=== PATIENT | male | born 1940 | race Caucasian/White ===

== ENCOUNTER 2021-07-10 12:10 | Inpatient (IN) ==
--- NOTE | 2021-07-10 12:39 | Emergency Department Note ---
Impression & Plan Bimalleolar fracture of left ankle ED Provider Note CHIEF COMPLAINT: Left ankle injury HISTORY OF PRESENT ILLNESS: This 80-year-old male patient presents to the emergency department by private vehicle after sustaining an injury to the left ankle and foot with a twisting, inversion motion around 11:20 AM today. The patient states that he slipped on some icy steps and twisted the ankle. The patient complains of pain along the inside and outside of the ankle. The patient denies any pain of the foot. The patient rates the pain as aching and 1/10 at rest, but is more painful when he tries to bear weight. The patient is not able to bear weight on the foot. Constant pain, worse with movement, weight bearing, and the dependent position. No knee pain, the patient is able to move their toes. No numbness or weakness of the foot, no laceration. The patient has not had a previous fracture to this ankle. The patient has taken nothing for the pain. The patient denies any other injury. He denies hitting his head or loss of consciousness. He denies taking any blood thinners but does take an aspirin daily. The patient last had 1/2 glass of water to take 2 pills around 11 AM today. He has not had any solid food since last evening. REVIEW OF SYSTEMS: A complete 10 point review of systems was reviewed with the patient with pertinent positives and negatives as per history of present illness. All else were negative. ALLERGIES: No known allergies PMH: Hyperlipidemia, enlarged prostate, history of TIA SOCIAL HISTORY: Lives at home with family, he denies tobacco use PHYSICAL EXAM: Vital Signs: Reviewed Nurse's notes, vital signs stable. CONSTITUTIONAL: Pleasant and cooperative. No acute distress. Well appearing and well nourished. HEENT: Normocephalic. There is a small abrasion in the occipital scalp with some dried blood. No active bleeding. No large hematoma or skull depression in the area is generally nontender to palpation. NECK: Supple, full active range of motion without discomfort. No midline tenderness to palpation of the cervical spine. RESPIRATORY: Clear to auscultation bilaterally with no wheezing, crackles, rhonchi or stridor. Equal expansion bilaterally. CARDIOVASCULAR: Regular rate and rhythm with no murmurs, rubs or gallops. Normal peripheral perfusion, 2+ pulses in all 4 extremities. GASTROINTESTINAL: Soft, nontender, nondistended. No ecchymosis or abrasions of the abdominal wall. MUSCULOSKELETAL: There is obvious deformity of the left ankle with what appears to be bony deviation medially and tenting of the skin, but no open wounds. The ankle is swollen and mildly tender over the medial and lateral malleolus. The patient is unable to to move the ankle normally. He is able to move his toes normally. There is no fifth metatarsal tenderness. There is no tenderness over the rest of the foot. There is no calf or tibia/fibular tenderness. The foot and toes are slightly cool to the touch, capillary refill is 3 seconds. Dorsalis pedis pulse 2+. Sensation to pain and light touch is intact. INTEGUMENTARY: No rash or other significant dermatologic conditions noted. NEUROLOGIC: Alert and oriented X 4 with normal affect. Normal strength and sensation in all 4 extremities. Normal speech. ED COURSE AND MEDICAL DECISION MAKING: CC: Patient presenting with complaint of left ankle injury DIFFERENTIAL DIAGNOSIS: Includes, but not limited to ankle sprain/strain, contusion, hematoma, fracture, dislocation, tendon rupture, ligamentous injury, among others. MEDICATION RECONCILIATION: I attest that I have personally reviewed the patient's current medication list. INITIAL VITAL SIGNS REVIEW: I reviewed the patient's initial vital signs and interpret them as follows: T: Afebrile; BP: Mildly hypertensive; HR: Within normal limits; RR: Within normal limits; Pulse Ox: Within normal limits on r oom air. SPLINT CARE: An Ortho-Glass posterior and stirrup splint was applied by the cable installation technician and Dr. Ortega. The positioning was satisfactory and the patient remained neurovascularly intact above and below the splint. MDM SUMMARY: Patient was evaluated at bedside, history and physical exam performed. Patient is alert and oriented, in no acute distress, resting in the wheelchair in the room. There is obvious deformity of the left ankle as noted above with tenting of the skin medially, but no open wounds to suggest an open injury. X-rays were performed and reviewed by myself, noting bimalleolar fracture with medial displacement. No other fractures noted. Patient discussed with Dr. Ortega, who also evaluated the patient and agrees with my assessment, plan, and disposition. A splint was applied and positioning was done by Dr. Ortega. The patient remained neurovascularly intact after splinting. Repeat x-ray showed improved alignment if the fracture. Patient denied hitting his head on my initial evaluation, but does note that he fell all the way to the ground and there is a scalp abrasion noted on my exam. CT imaging of the head and cervical spine was also performed given the patient's fall with hitting his head and he takes a full-strength daily aspirin. CT imaging reviewed and was negative for any acute findings. I spoke on the phone with Dr. Villeda, orthopedic surgery, regarding the patient's fracture. Given the patient's mobility issues and several steps to get in and out of his house as well as getting around inside the house, he felt that it was reasonable to admit the patient to the medicine service and plan for surgery early this week. I discussed the option of admission with the patient and his , they were agreeable to this plan and this was their preference rather than going home. I spoke on the phone with Dr. Duggan, [facility] hospitalist, who agreed to evaluate the patient for the admission. A Covid test was also ordered. The patient was stable at the time of admission. The chart was completed utilizing [employer] Speech voice recognition software. Grammatical errors, random word insertions, pronoun errors, and incomplete sentences are an occasional consequence of this system due to software limitations, ambient noise, and hardware issues. Any formal questions or concerns about the content, text, or information contained within the body of th is dictation should be directly addressed to the nurse practitioner for clarification. Past Med/Surg History Medical History High cholesterol Social History Smoking Status: Never smoker Preferred Language: Albanian Feels Safe at Home: Yes Allergies Allergies Allergy/AdvReac Type Severity Reaction Status Date / Time No Known Allergies Allergy Unverified 03/28/21 12:15 Home Meds Home Medications Medication Instructions Recorded Confirmed alfuzosin 10 mg tablet,extended 10 mg PO DAILY 03/28/21 03/28/21 release 24 hr aspirin 81 mg tablet,delayed 81 mg PO DAILY 03/28/21 03/28/21 release (Aspirin Low Dose) atorvastatin 20 mg tablet 20 mg PO DAILY 03/28/21 03/28/21 cholecalciferol (vitamin D3) 25 25 mcg PO DAILY 03/28/21 03/28/21 mcg (1,000 unit) tablet (Vitamin D3) finasteride 5 mg tablet 5 mg PO DAILY 03/28/21 03/28/21 Results & Data (ED) Vital Signs Vital Signs - 24 hr 07/10/21 12:12 07/10/21 14:11 07/10/21 14:17 Temperature 36.5 C Temperature Source Temporal Artery Scan Pulse Rate 63 63 Pulse Rate [Right Finger] 61 Pulse Rate from SpO2 Sensor 63 Respiratory Rate 18 20 20 Respiratory Effort / Characteristics Non-Labored Spontaneous Blood Pressure 143/82 H Blood Pressure [Left Arm] 143/79 H Blood Pressure Mean 102 Blood Pressure Mean [Left Arm] 100 Blood Pressure Position [Left Arm] Sitting Pulse Oximetry 100 97 96 Oxygen Delivery Method Room Air Room Air Room Air Sepsis Recent Fever Within 48 Hours No Sepsis New/Unexplained Change in Mental Status No Sepsis Action Taken by Nursing No Action Required 07/10/21 14:20 07/10/21 14:30 07/10/21 14:40 Temperature Temperature Source Pulse Rate 68 62 63 Pulse Rate [Right Finger] Pulse Rate from SpO2 Sensor 65 60 63 Respiratory Rate 19 20 20 Respiratory Effort / Characteristics Blood Pressure Blood Pressure [Left Arm] Blood Pressure Mean Blood Pressure Mean [Left Arm] Blood Pressure Position [Left Arm] Pulse Oximetry 95 95 97 Oxygen Delivery Method Room Air Room Air Room Air Sepsis Recent Fever Within 48 Hours Sepsis New/Unexplained Change in Mental Status Sepsis Action Taken by Nursing Laboratory Data Lab Results 07/10/21 Range/Units 14:17 SARS-CoV-2, RNA, NAAT NEGATIVE (NEGATIVE) Imaging Data Radiologist's Impression: Ankle X-Ray 07/10/21 12:29 XR ankle LT min 3V routine CLINICAL HISTORY: ankle injury. Pain. COMPARISON STUDY: No previous studies for comparison. TECHNIQUE: 3 left ankle views FINDINGS: Bones: There is evidence for a bimalleolar fracture present. There is oblique fracture present involving the distal fibular metadiaphysis. A transverse fracture is present through the base of the medial malleolus of the tibia. The remaining bones are intact. There is no lytic or blastic lesion. Joints: There is widening of the ankle mortise medially with evidence for displacement of the tibia and fibular shaft medially. Soft tissues: Soft tissue swelling surrounds the ankle. There is no radiopaque foreign body. IMPRESSION: Displaced bimalleolar fractures of the tibia and fibula with widening of the ankle mortise and surrounding soft tissue swelling. ACT 112: Negative or not required by law. Electronically signed by: Mani Herrera M.D. 07/10/2021 1:22 PM Foot X-Ray 07/10/21 12:29 XR foot LT min 3V routine CLINICAL HISTORY: Foot and ankle injury. Pain COMPARISON STUDY: No previous studies for comparison. TECHNIQUE: 3 left foot views FINDINGS: Bones: Displaced bimalleolar fractures of the tibia and fibula are again seen. There is no definite evidence for a fracture of the foot. There is no lytic or blastic lesion. Joints: The joint spaces are maintained. The bones are in anatomic alignment. Soft tissues: There is no focal soft tissue abnormality. There is no radiopaque foreign body. IMPRESSION: Bimalleolar fractures of the distal tibia and fibula are again seen. No definite fracture of the bones of the foot. ACT 112: Negative or not required by law. Electronically signed by: Mani Herrera M.D. 07/10/2021 1:24 PM Tibia/Fibula X-Ray 07/10/21 12:29 XR tibia fibula LT 2V CLINICAL HISTORY: ankle injury. Pain COMPARISON STUDY: Ankle radiographs from the same date TECHNIQUE: AP and lateral views of the upper tibia fibula views FINDINGS: Bones: The proximal tibia and fibula are intact. The displaced, bimalleolar fractures were not included with these films. However, please see ankle report and films for further evaluation. There is no lytic or blastic lesion. Joints: The knee joint space is maintained. The ankle joint is not included. The imaged bones are in anatomic alignment. Soft tissues: There is no focal soft tissue abnormality. There is no radiopaque foreign body. IMPRESSION: No evidence for fracture of the proximal tibia and fibula. The patient has displaced bimalleolar fractures on ankle radiographs. Please see a nkle films and report for further evaluation. ACT 112: Negative or not required by law. Electronically signed by: Mani Herrera M.D. 07/10/2021 1:[address] 07/10/21 12:59 CT cervical spine wo con CLINICAL HISTORY: fall, hit head, on asa . Neck pain COMPARISON STUDY: No previous studies for comparison. CT DOSE: 984.32 mGy.cm TECHNIQUE: Standard CT of the Cervical Spine was performed without IV contrast. A dose lowering technique was utilized adhering to the principles of ALARA. FINDINGS: Bones: The bones are osteopenic. There is no evidence for an acute fracture or malalignment. The heights of the vertebral bodies are maintained. The vertebral bodies are in anatomic alignment. The odontoid is intact. Degenerative changes are seen at the atlantoaxial articulation. Disc spaces:Moderate to marked disc space narrowing is present at C5-6 and C6-7 with endplate sclerosis, osteophyte formation and vacuum disc phenomena present. Subchondral cyst formation is also seen involving vertebral body endplates. Apophyseal joints:Extensive degenerative apophyseal joint disease is seen bilaterally. Soft tissues:The prevertebral soft tissues are within normal limits. IMPRESSION: No acute abnormality. Osteopenia with degenerative disc and degenerative joint disease. ACT 112: Negative or not required by law. Electronically signed by: Mani Herrera M.D. 07/10/2021 1:[address] 07/10/21 12:59 CT head/brain wo con CLINICAL HISTORY: fall, hit head, on asa COMPARISON STUDY: 03/28/2021 CT DOSE: TECHNIQUE: Standard CT of the Brain was performed without IV contrast. A dose lowering technique was utilized adhering to the principles of ALARA. FINDINGS: Extraaxial space: The ventricles are mildly dilated bilaterally. There are no extra-axial fluid collections. Ventricles and cisterns: The ventricles are normal in size and configuration. There is no evidence for midline shift or mass effect. Parenchyma: There is no subarachnoid or intraparenchymal hemorrhage. There is no evidence for an acute infarct or cerebral edema. There is mild cerebral cortical atrophy and decreased attenuation in the periventricular white matter representing remote small vessel disease. There are no gross mass lesions. Osseous structures: There is no evidence for an acute fracture. The visualized paranasal sinuses are clear. The mastoid air cells are clear bilaterally. Soft tissues: There is no evidence for focal soft tissue swelling. IMPRESSION: No acute intracerebral pathology. Cerebral cortical atrophy and r emote small vessel disease are again seen. ACT 112: Negative or not required by law. Electronically signed by: Mani Herrera M.D. 07/10/2021 1:43 PM Ankle X-Ray 07/10/21 13:14 XR ankle LT min 3V routine CLINICAL HISTORY: post-splinting/reduction. COMPARISON STUDY: 07/10/2021 TECHNIQUE: 3 left ankle views FINDINGS: Compared to the previous examination, there has been partial reduction of previously identified bimalleolar fractures of the distal tibia and fibula. As been reduction of previous be identified widening of the ankle mortise. The ankle is in a fiberglass splint. IMPRESSION: Status post partial interval reduction of previously identified displaced bimalleolar fractures. ACT 112: Negative or not required by law. Electronically signed by: Mani Herrera M.D. 07/10/2021 1:40 PM Discharge Plan Visit Data Chief Complaint: Fall Stated Complaint: FELL ON ICE, TWISTED LEFT ANKLE ED Provider: Gurvinder Ortega ED Midlevel Provider: Merle Crouch Discharge Problem: Bimalleolar fracture of left ankle Patient Disposition: Admitted As Inpatient Condition: Good Forms Stand Alone Forms: [employer] [facility] [employer] Prescriptions Prescriptions: No Action atorvastatin 20 mg tablet 20 mg PO DAILY RF: 0 aspirin [Aspirin Low Dose] 81 mg Tablet,Delayed Release (Dr/Ec) 81 mg PO DAILY RF: 0 finasteride 5 mg tablet 5 mg PO DAILY RF: 0 alfuzosin 10 mg tablet extended release 24 hr 10 mg PO DAILY RF: 0 cholecalciferol (vitamin D3) [Vitamin D3] 25 mcg (1,000 unit) Tablet 25 mcg PO DAILY RF: 0 Referrals Referrals: Yolanda Grace MD [Primary Care Provider] - Discharge Problem: Bimalleolar fracture of left ankle Qualifiers: Encounter type: initial encounter Fracture type: closed Qualified Code(s): S82.842A - Displaced bimalleolar fracture of left lower leg, initial encounter for closed fracture
--- NOTE | 2021-07-10 13:16 | Emergency Department Note ---
ED Visit Note This Patient was discussed with the nurse practitioner, SUPRIYA Monson. The pertinent historical and physical exam findings were confirmed. I agree with the studies ordered and with the interpretations of these studies. I agree with the disposition and care plan. .
--- NOTE | 2021-07-10 13:24 | XRay Report ---
XR ankle LT min 3V routine CLINICAL HISTORY: ankle injury. Pain. COMPARISON STUDY: No previous studies for comparison. TECHNIQUE: 3 left ankle views FINDINGS: Bones: There is evidence for a bimalleolar fracture present. There is oblique fracture present involv ing the distal fibular metadiaphysis. A transverse fracture is present through the base of the medial malleolus of the tibia. The remaining bones are intact. There is no lytic or blastic lesion. Joints: There is widening of the ankle mortise medially with evidence for displacement of the tibia a nd fibular shaft medially. Soft tissues: Soft tissue swelling surrounds the ankle. There is no radiopaque foreign body. IMPRESSION: Displaced bimalleolar fractures of the tibia and fibula with widening of the ankle mortis e and surrounding soft tissue swelling. ACT 112: Negative or not required by law. Electronically signed by: Mani Herrera M.D. 07/10/2021 1:22 PM
--- NOTE | 2021-07-10 13:25 | XRay Report ---
XR foot LT min 3V routine CLINICAL HISTORY: Foot and ankle injury. Pain COMPARISON STUDY: No previous studies for comparison. TECHNIQUE: 3 left foot views FINDINGS: Bones: Displaced bimalleolar fractures of the tibia and fibula are again seen. There is no definite e vidence for a fracture of the foot. There is no lytic or blastic lesion. Joints: The joint spaces are maintained. The bones are in anatomic alignment. Soft tissues: There is no focal soft tissue abnormality. There is no radiopaque foreign body. IMPRESSION: Bimalleolar fractures of the distal tibia and fibula are again seen. No definite fracture of the bones of the foot. ACT 112: Negative or not required by law. Electronically signed by: Mani Herrera M.D. 07/10/2021 1:24 PM
--- NOTE | 2021-07-10 13:33 | XRay Report ---
XR tibia fibula LT 2V CLINICAL HISTORY: ankle injury. Pain COMPARISON STUDY: Ankle radiographs from the same date TECHNIQUE: AP and lateral views of the upper tibia fibula views FINDINGS: Bones: The proximal tibia and fibula are intact. The displaced, bimalleolar fractures were not includ ed with these films. However, please see ankle report and films for further evaluation. There is no l ytic or blastic lesion. Joints: The knee joint space is maintained. The ankle joint is not included. The imaged bones are in anatomic alignment. Soft tissues: There is no focal soft tissue abnormality. There is no radiopaque foreign body. IMPRESSION: No evidence for fracture of the proximal tibia and fibula. The patient has displaced bima lleolar fractures on ankle radiographs. Please see ankle films and report for further evaluation. ACT 112: Negative or not required by law. Electronically signed by: Mani Herrera M.D. 07/10/2021 1:32 PM
--- NOTE | 2021-07-10 13:41 | XRay Report ---
XR ankle LT min 3V routine CLINICAL HISTORY: post-splinting/reduction. COMPARISON STUDY: 07/10/2021 TECHNIQUE: 3 left ankle views FINDINGS: Compared to the previous examination, there has been partial reduction of previously identi fied bimalleolar fractures of the distal tibia and fibula. As been reduction of previous be identifie d widening of the ankle mortise. The ankle is in a fiberglass splint. IMPRESSION: Status post partial interval reduction of previously identified displaced bimalleolar fra ctures. ACT 112: Negative or not required by law. Electronically signed by: Mani Herrera M.D. 07/10/2021 1:40 PM
--- NOTE | 2021-07-10 13:45 | CT Scan Report ---
CT head/brain wo con CLINICAL HISTORY: fall, hit head, on asa COMPARISON STUDY: 03/28/2021 CT DOSE: TECHNIQUE: Standard CT of the Brain was performed without IV contrast. A dose lowering technique was utilized adhering to the principles of ALARA. FINDINGS: Extraaxial space: The ventricles are mildly dilated bilaterally. There are no extra-axial fluid colle ctions. Ventricles and cisterns: The ventricles are normal in size and configuration. There is no evidence f or midline shift or mass effect. Parenchyma: There is no subarachnoid or intraparenchymal hemorrhage. There is no evidence for an acu te infarct or cerebral edema. There is mild cerebral cortical atrophy and decreased attenuation in th e periventricular white matter representing remote small vessel disease. There are no gross mass lesi ons. Osseous structures: There is no evidence for an acute fracture. The visualized paranasal sinuses are clear. The mastoid air cells are clear bilaterally. Soft tissues: There is no evidence for focal soft tissue swelling. IMPRESSION: No acute intracerebral pathology. Cerebral cortical atrophy and remote small vessel disea se are again seen. ACT 112: Negative or not required by law. Electronically signed by: Mani Herrera M.D. 07/10/2021 1:43 PM
--- NOTE | 2021-07-10 13:51 | CT Scan Report ---
CT cervical spine wo con CLINICAL HISTORY: fall, hit head, on asa . Neck pain COMPARISON STUDY: No previous studies for comparison. CT DOSE: 984.32 mGy.cm TECHNIQUE: Standard CT of the Cervical Spine was performed without IV contrast. A dose lowering te chnique was utilized adhering to the principles of ALARA. FINDINGS: Bones: The bones are osteopenic. There is no evidence for an acute fracture or malalignment. The heig hts of the vertebral bodies are maintained. The vertebral bodies are in anatomic alignment. The odont oid is intact. Degenerative changes are seen at the atlantoaxial articulation. Disc spaces:Moderate to marked disc space narrowing is present at C5-6 and C6-7 with endplate scleros is, osteophyte formation and vacuum disc phenomena present. Subchondral cyst formation is also seen i nvolving vertebral body endplates. Apophyseal joints:Extensive degenerative apophyseal joint disease is seen bilaterally. Soft tissues:The prevertebral soft tissues are within normal limits. IMPRESSION: No acute abnormality. Osteopenia with degenerative disc and degenerative joint disease. ACT 112: Negative or not required by law. Electronically signed by: Mani Herrera M.D. 07/10/2021 1:49 PM
--- NOTE | 2021-07-10 15:16 | History & Physical Report ---
Date of Service July 10, 2021 Assessment & Plan (1) Bimalleolar fracture of left ankle: Admission and Anticipated Discharge Date Admission Date: #. Fall #. Left ankle fracture Patient slipped on ice late morning on the day of arrival. Not sure if he hit his head, denies any pain at bedside exam. Imagings: Left ankle x-ray positive for displaced bimalleolar fracture of the tibia and fibula. Left foot x-ray and left tibia/fibula x-ray also reviewed. C-spine CT and head CT are negative for any acute abnormality Emergency already made orthopedics aware, likely repair tomorrow. Pain control, n.p.o. midnight for possible orthopedic interventions tomorrow. Patient on 325 mg aspirin daily after stroke couple of months ago, will continue with 81 mg for now, resume home dose when cleared by orthopedics. #. Other chronic medical conditions: HLD, BPH Resume/continue with home meds as and when appropriate. DVT prophylaxis: SCDs in right leg until orthopedic intervention, await Ortho recommendation for further anticoagulation need. Full code, does not want to be in vegetative state. BELKYS is his Vale Randhawa who was present at bedside. History of Present Illness Chief Complaint: Fall, Left ankle pain Primary Care Provider: Yolanda Grace MD 80-year-old gentleman with PMH of TIA on full dose aspirin [325 mg daily], HLD, stage III CKD, BPH, actinic keratosis, SCCIS of left ear helix skin presented to our ED 2/ after slipping on ice today morning. Per patient he slipped on ice outside of his house late morning on the day of arrival, denies any sweating/palpitations/dizziness preceding fall and no loss of consciousness or headache after fall. He twisted his left ankle and fell, not sure if he hit his head but there is a bruise on his right hand. Denies any pain anywhere in the body including left ankle which is already in the cast at the time of bedside examination. Patient denies any fever/chills/headache/dizziness/chest pain/palpitation/sore throat/cough/belly pain/acute changes in bowel or bladder habits/other review of symptoms. Patient reports pain under control. Patient is not a smoker, does not drink alcohol, does not use recreational drugs. No personal history of blood clot or cancer. No family history of blood clot or cancer. History of colon cancer in father in his 80s 70s. No family history of heart attack. Patient was recently diagnosed with TIA couple of months ago and was started on full dose aspirin. 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 No history of chemical exposure. Full code, but wants withdrawal of care if he is deemed to be vegetative. Allergies Allergy/AdvReac Type Severity Reaction Status Date / Time No Known Allergies Allergy Unverified 03/28/21 12:15 Home Medications Medication Instructions Recorded Confirmed Type alfuzosin 10 mg tablet,extended 10 mg PO DAILY 03/28/21 03/28/21 History release 24 hr aspirin 81 mg tablet,delayed 81 mg PO DAILY 03/28/21 03/28/21 History release (Aspirin Low Dose) atorvastatin 20 mg tablet 20 mg PO DAILY 03/28/21 03/28/21 History cholecalciferol (vitamin D3) 25 25 mcg PO DAILY 03/28/21 03/28/21 History mcg (1,000 unit) tablet (Vitamin D3) finasteride 5 mg tablet 5 mg PO DAILY 03/28/21 03/28/21 History Past Med/Surg History Medical History High cholesterol Social History Smoking Status: Never smoker Hx Alcohol Use: No Hx Substance Use: No Preferred Language: Macanese Communication Ability: Effective Associate Product Manager Required: No Beliefs That Will Affect Care: None Current Living Situation: Spouse Other Information That Helps Us Care for You: No Feels Safe at Home: Yes Safety Concerns: Feels Safe At This Time Assistive Devices: Glasses Physical Exam Physical Exam: GENERAL: Alert and oriented x3. NAD, on RA. HEENT: No pallor, no icterus. Pupils equal, round and reactive to light. Oral mucosa moist. NECK: No JVD, no neck masses. HEART: S1 and S2 heard. Regular rate and rhythm. No murmur, no gallop. RESPIRATORY SYSTEM: Normal AP diameter. No accessory muscle use. No wheezing, no crackles. ABDOMEN: Soft, bowel sounds present, nontender, no distention. CENTRAL NERVOUS SYSTEM: No facial droop. Speech is clear. Obeys simple commands. Moves extremities. EXTREMITIES: No edema, no erythema seen. LLE knee-high cast, distal neurovascular status WNL. Small bruise over medial aspect of right hand, nonte nder. Results & Data Results & Data ([facility]) Vital Signs (Past 12 Hours) Vital Signs Temp Pulse Pulse Resp BP BP Pulse Ox 07/10/21 14:40 63 20 97 07/10/21 14:30 62 20 95 07/10/21 14:20 68 19 95 07/10/21 14:17 63 20 96 07/10/21 14:11 61 20 143/79 H 97 07/10/21 12:12 36.5 C 63 18 143/82 H 100
--- NOTE | 2021-07-10 15:55 | Orthopedic Consultation ---
Date of Service July 10, 2021 Assessment & Plan (1) Bimalleolar fracture of left ankle: -Will require surgery, ORIF L bimalleolar ankle fracture -NWB LLE -NPO after midnight -Abx cardiac nurse practitioner for OR History of Present Illness Reason for Consultation: L bimalleolar ankle fracture Requesting Physician: Don Duggan . Attending Physician: Don Duggan Pt is an 80 y/o/m with multiple medical comorbidities who came to the ED today by private vehicle after he slipped on ice this morning resulting in a mechanical fall. He twisted his left ankle during the fall and had immediate pain and deformity afterwards. XRs obtained in ED showed displaced bimalleolar fractures of the distal tibia and fibula with widening of the ankle mortise and surrounding soft tissue swelling. He underwent closed reduction while in ED and was placed in a splint. Orthopedics consulted for definitive evaluation and treatment of the fracture. Admitted to Hospitalist team for medical optimization prior to surgery. Seen in . Pain . Denies . Allergies Allergy/AdvReac Type Severity Reaction Status Date / Time No Known Allergies Allergy Unverified 03/28/21 12:15 Home Medications Medication Instructions Recorded Confirmed Type alfuzosin 10 mg tablet,extended 10 mg PO DAILY 03/28/21 03/28/21 History release 24 hr aspirin 81 mg tablet,delayed 81 mg PO DAILY 03/28/21 03/28/21 History release (Aspirin Low Dose) atorvastatin 20 mg tablet 20 mg PO DAILY 03/28/21 03/28/21 History cholecalciferol (vitamin D3) 25 25 mcg PO DAILY 03/28/21 03/28/21 History mcg (1,000 unit) tablet (Vitamin D3) finasteride 5 mg tablet 5 mg PO DAILY 03/28/21 03/28/21 History Past Med/Surg History Medical History High cholesterol Social History Smoking Status: Never smoker Preferred Language: Kinyarwanda Feels Safe at Home: Yes Review of Systems All systems reviewed & are unremarkable except as noted in HPI & below. Physical Exam . Results & Data Results & Data Laboratory Results Laboratory Tests 03/28/21 03/28/21 03/28/21 11:20 11:20 11:50 WBC 6.67 Hgb 13.6 L Hct 40.8 L Plt Count 216 PT 9.9 INR 1.0 Sodium 140 Potassium 4.3 Chloride 108 H Carbon Dioxide 26 Anion Gap 6.0 BUN 29 H Creatinine 1.41 H . Diagnostic Findings Ankle XRs (Pre Reduction): FINDINGS: Bones: There is evidence for a bimalleolar fracture present. There is oblique fracture present involving the distal fibular metadiaphysis. A transverse fracture is present through the base of the medial malleolus of the tibia. The remaining bones are intact. There is no lytic or blastic lesion. Joints: There is widening of the ankle mortise medially with evidence for displacement of the tibia and fibular shaft medially. Soft tissues: Soft tissue swelling surrounds the ankle. There is no radiopaque foreign body. IMPRESSION: Displaced bimalleolar fractures of the tibia and fibula with widening of the ankle mortise and surrounding soft tissue swelling. . Ankle XRs (Post Reduction): FINDINGS: Compared to the previous examination, there has been partial reduction of previously identified bimalleolar fractures of the distal tibia and fibula. As been reduction of previous be identified widening of the ankle mortise. The ankle is in a fiberglass splint. IMPRESSION: Status post partial interval reduction of previously identified displaced bimalleolar fractures. PG Care Time/CCT Total # of Minutes Spent Total Time Spent with Patient: Total time spent is greater than 50% in coordination of care (as documented) at patient's floor/unit and/or counseling patient: Coding Diagnoses Bimalleolar fracture of left ankle S82.842A
[2021-07-10] MEDS ORDERED: oxyCODONE/ACETAMINOPHEN 5mg/325mg TAB PO PRN (16:55)
--- NOTE | 2021-07-10 18:53 | Orthopedic Consultation ---
Date of Service July 10, 2021 Assessment & Plan (1) Bimalleolar fracture of left ankle: The patient's been admitted by the hospitalist service. He was given the option of going home but elected to stay and have surgery tomorrow. We will keep him n.p.o. after midnight. We will proceed with ORIF of left ankle fracture. This was either done by myself or [address] Medina. The risks about this procedure explained in depth to the patient include but not limited to DVT PE infection neurological injury vascular injury persistent pain nonunion malunion degenerative arthritis etc. Patient understands and desires to proceed informed consent is obtained. We will continue DVT prophylaxis including teds and SCDs and baby aspirin postoperatively. History of Present Illness Reason for Consultation: . Left ankle fracture Requesting Physician: . Attending Physician: Don Duggan MD . 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 He slipped on the ice and twisted his ankle. Acute onset of pain. He had difficulty walking on it after that. Brought to emergency room x-rays of the left ankle fracture. He has been admitted by the hospitalist service. Were consulted for evaluation of his ankle fracture. Denies any other injuries. Allergies Allergy/AdvReac Type Severity Reaction Status Date / Time No Known Allergies Allergy Unverified 03/28/21 12:15 Home Medications Medication Instructions Recorded Confirmed Type alfuzosin 10 mg tablet,extended 10 mg PO DAILY 03/28/21 03/28/21 History release 24 hr aspirin 81 mg tablet,delayed 81 mg PO DAILY 03/28/21 03/28/21 History release (Aspirin Low Dose) atorvastatin 20 mg tablet 20 mg PO DAILY 03/28/21 03/28/21 History cholecalciferol (vitamin D3) 25 25 mcg PO DAILY 03/28/21 03/28/21 History mcg (1,000 unit) tablet (Vitamin D3) finasteride 5 mg tablet 5 mg PO DAILY 03/28/21 03/28/21 History Past Med/Surg History Medical History High cholesterol Social History Smoking Status: Never smoker Hx Alcohol Use: No Hx Substance Use: No Preferred Language: Martiniquais Communication Ability: Effective Drilling Manager Required: No Beliefs That Will Affect Care: None Current Living Situation: Spouse Other Information That Helps Us Care for You: No Feels Safe at Home: Yes Safety Concerns: Feels Safe At This Time Assistive Devices: None Review of Systems All systems reviewed & are unremarkable except as noted in HPI & below. Physical Exam . Physical examination is a pleasant elderly male. Looks to be in excellent health. Examination of the left lower extremity reveals a splint to be in place. Ankle looks reasonably well aligned. Toes are pink. He can flex extend his toes without much pain. He is neurologically intact. No pain with knee motion. Results & Data Results & Data Laboratory Results . Diagnostic Findings . X-rays of the left ankle and tib-fib reveal a displaced medial ankle fracture. He does report reduction films which show improved alignment but distal aspect still subluxated laterally. PG Care Time/CCT Total # of Minutes Spent Total Time Spent with Patient: Total time spent is greater than 50% in coordination of care (as documented) at patient's floor/unit and/or counseling patient: Coding Level of Care Code 80841 Inpt Consult Level 5 Diagnoses Bimalleolar fracture of left ankle S82.842A Encounter type: initial encounter Fracture type: closed (1) Bimalleolar fracture of left ankle Encounter type: initial encounter Fracture type: closed Qualified Code(s): S82.842A - Displaced bimalleolar fracture of left lower leg, initial encounter for closed fracture
[2021-07-10] MEDS: ATORVASTATIN 40 MG TAB PO SCH (20:13)
[2021-07-10] MEDS ORDERED: ASPIRIN 81 MG ECTAB PO SCH (21:00)
[2021-07-11 06:43] LABS: Hematocrit (blood only) 36.7 % (42-52); Hemoglobin 12.1 g/dL (14.0-18.0); Mean Corpuscular Hemoglobin 30.6 pg (25-34); Mean Corpuscular Volume 92.7 fL (80-100); Mean Platelet Volume 10.9 fL (7.4-10.4); Platelet Count 196 K/uL (130-400); Red Blood Count 3.96 M/uL (4.7-6.1); White Blood Count 9.43 K/uL (4.8-10.8)
[2021-07-11 06:55] LABS: BUN Creatinine Ratio 22.5 (10-20); Calcium 8.4 mg/dl (8.5-10.1); Creatinine Clr Calc Pharmacy 46.6 ml/min; Est GFR (African American) 54.8 ml/min; Est GFR (Non-African American) 47.3 ml/min; Potassium 4.2 mmol/L (3.5-5.1)
--- NOTE | 2021-07-11 07:10 | Anesthesiology Consultation ---
Date of Service July 11, 2021 Assessment & Plan (1) Encounter for pre-operative examination: Chart Review Chart Review: charge entry specialist initiated History Surgery Operation Date: 07/11/21 07:00 Proposed Procedures p Left Ankle Open Reduction Internal Fixation - Declan Medina DO Height/Weight Height: 6 ft 1 in Weight: 82 kg Allergies Allergy/AdvReac Type Severity Reaction Status Date / Time No Known Allergies Allergy Unverified 03/28/21 12:15 Medications Home Medications Medication Instructions Recorded Confirmed Last Taken alfuzosin 10 mg tablet,extended 10 mg PO DAILY 03/28/21 03/28/21 03/27/21 release 24 hr aspirin 81 mg tablet,delayed 81 mg PO DAILY 03/28/21 03/28/21 03/27/21 release (Aspirin Low Dose) atorvastatin 20 mg tablet 20 mg PO DAILY 03/28/21 03/28/21 03/27/21 cholecalciferol (vitamin D3) 25 25 mcg PO DAILY 03/28/21 03/28/21 03/27/21 mcg (1,000 unit) tablet (Vitamin D3) finasteride 5 mg tablet 5 mg PO DAILY 03/28/21 03/28/21 03/27/21 Active Medications Generic Name Dose Route Start Last Admin Trade Name Freq PRN Reason Stop Dose Admin Aspirin 81 mg 07/10/21 21:00 07/10/21 20:13 Aspirin 81 Mg Ectab PO 08/09/21 20:59 81 mg HS MERRY Administration Atorvastatin Calcium 40 mg 07/10/21 21:00 07/10/21 20:13 Atorvastatin 40 Mg Tab PO 08/09/21 20:59 40 mg HS MERRY Administration NPO Date Last Intake of Fluids: 07/09/21 Time Last Intake of Fluids: 23:30 Date Last Intake of Solids: 07/09/21 Time Last Intake of Solids: 18:00 Past Medical History Medical History High cholesterol Social History Smoking Status: Never smoker Hx Alcohol Use: No Hx Substance Use: No Physical Exam Vital Signs Last Vital Signs Temp 98.8 F 07/10/21 22:58 Pulse 73 07/10/21 22:58 Resp 16 07/10/21 22:58 BP 114/51 L 07/10/21 22:58 Pulse Ox 97 02/06/22 22:58 Testing Laboratory Results 07/11/21 06:08 07/11/21 06:08 Laboratory Tests 07/10/21 14:17 SARS-CoV-2, RNA, NAAT NEGATIVE Electrocardiogram Date: 03/28/21 Sinus bradycardia, rate 54 bpm Possible Left atrial enlargement Borderline ECG No previous ECGs available Confirmed by Chris Lowe ([id number]) on 03/29/2021 5:16:14 AM Chest X-Ray Date: 03/28/21 Findings: + NAD
[2021-07-11] MEDS: ALFUZOSIN HCL 10 MG TAB PO SCH (08:09)
[2021-07-11] MEDS: FINASTERIDE 5 MG TAB PO SCH (08:09)
[2021-07-11] MEDS: CHOLECALCIFEROL 1,000 UNITS 25 MCG TAB PO SCH (08:09)
--- NOTE | 2021-07-11 08:38 | Progress Notes ---
DATE OF SERVICE: 07/11/2021 SUBJECTIVE: An 80-year-old gentleman admitted with a bimalleolar ankle fracture. No new complaints today. Pain is not too bad in the splint. No new complaints. OBJECTIVE: VITAL SIGNS: Temperature 36.6. Vital signs are stable. PHYSICAL EXAMINATION: GENERAL: Shows a pleasant, elderly male. He is sitting up in bed, looks comfortable. EXTREMITIES: Examination of the left leg reveals the splint to be in place. Ankle looks well aligne d. He can dorsiflex and plantarflex his toes appropriately. ASSESSMENT: An 80-year-old gentleman with a left bimalleolar ankle fracture. PLAN: He has been admitted by the medicine service. He is medically optimized. Plan is to fix this today. It would either be done by my partner, Dr. Medina or Dr. Cao most likely. The risks and benefits were explained. He understands. Job ID: [id number]
--- NOTE | 2021-07-11 10:16 | Orthopedic Progress Note ---
Date of Service July 11, 2021 Assessment & Plan (1) Bimalleolar fracture of left ankle: I talked to him about his diagnosis and treatment options at bedside. I recommended open reduction internal fixation of the left ankle. He understands the risk benefits alternatives procedure elected proceed question were answered at bedside today and consents were signed. Time was spent scribed procedure and postop expectations. The decision was made for surgery. June Blank was seen and examined at bedside this morning. Overall he is doing okay. Stymied to much pain in the left ankle. The left ankle is elevated. He has active motion of his toes. He has no new complaints. Review of Systems All systems reviewed & are unremarkable except as noted in HPI & below. Physical Exam On physical examination left ankle, he is wearing a trauma splint. He can move his toes. I was unable to evaluate his skin with a trauma splint in place. Results & Data Results & Data Laboratory Results . Diagnostic Findings X-rays of the left ankle reviewed. He has bimalleolar ankle fracture. PG Care Time/CCT Total # of Minutes Spent Total Time Spent with Patient: Total time spent is greater than 50% in coordination of care (as documented) at patient's floor/unit and/or counseling patient: Coding Level of Care Code 96418 Subseq Hosp Care Lvl 2 (57 - DECISION FOR SURGERY) Diagnoses Bimalleolar fracture of left ankle S82.842A Encounter type: initial encounter Fracture type: closed (1) Bimalleolar fracture of left ankle Encounter type: initial encounter Fracture type: closed Qualified Code(s): S 82.842A - Displaced bimalleolar fracture of left lower leg, initial encounter for closed fracture
[2021-07-11] MEDS ORDERED: ONDANSETRON INJ 2 MG/ML 2 ML VIAL ONE ×2 (11:17→13:59)
[2021-07-11] MEDS ORDERED: LIDOCAINE 2% 2 ML VIAL/AMP(20MG/ML) INFIL ONE (11:17)
[2021-07-11] MEDS ORDERED: PROPOFOL IV EMULSION 10 MG/ML 20 ML VIAL IV ONE (11:17)
[2021-07-11] MEDS ORDERED: fentaNYL citrate 100 MCG/2 ML VIAL ONE ×2 (11:17→13:58)
[2021-07-11] MEDS ORDERED: fentaNYL citrate 100 MCG/2 ML VIAL IV PRN (11:53)
[2021-07-11] MEDS ORDERED: ATROPINE SULFATE 0.1 MG/ML 10ML SYR IV PRN (11:53)
[2021-07-11] MEDS ORDERED: ePHEDrine sulfate 50 MG/ML AMP IV PRN (11:53)
[2021-07-11] MEDS ORDERED: ONDANSETRON INJ 2 MG/ML 2 ML VIAL IV PRN (11:53)
--- NOTE | 2021-07-11 12:17 | History & Physical Bridge Note ---
Date of Service July 11, 2021 History & Physical Bridge Note I have examined the patient, reviewed the History & Physical and in the interval since the performance of the History & Physical I have noted the following changes of clinical significance: no changes noted
[2021-07-11] MEDS ORDERED: ROPIVACAINE 0.5% 5 MG/ML 30 ML VIAL ONE (12:19)
[2021-07-11] MEDS ORDERED: ceFAZolin 2,000 MG/15 ML IV PUSH IV ONE (12:21)
[2021-07-11] MEDS ORDERED: ceFAZolin 2000MG 2,000 MG/15 ML SYR IV ONE (12:30)
[2021-07-11] MEDS ORDERED: ePHEDrine sulfate 50 MG/ML SYR ONE (14:00)
--- NOTE | 2021-07-11 14:31 | Operative Report ---
PG Post Operative Report Pre & Post Diagnosis Operation Date: 07/11/21 07:00 Pre-Op Diagnosis: Bimalleolar Fracture of Left Ankle Post-Op Diagnosis: Bimalleolar Fracture of Left Ankle I identified the patient and participated in the time-out.: Yes Procedure Operation Date: 07/11/21 07:00 Actual Procedures p Left Ankle Open Reduction Internal Fixation bimalleolar fracture - Declan Medina DO Surgeon Declan Medina DO Adhesive Bandage Making Operator Declan Doshi PAC Estimated Blood Loss 10 Findings Consistent with Post-Op Diagnosis Specimens None Complications none Disposition Disposition: Recovery Room Indications Alexander is a pleasant 80-year-old male who slipped and fell on the ice twisting his left ankle. X-rays and clinical examination were diagnostic for bimalleolar left ankle fracture. He was admitted to the hospital. After discussions, he elected to proceed with open reduction internal fixation of the left ankle. Description of Procedure On July 11, 2021 he was brought down from his hospital room to the preoperative holding area. The operative extremity identified and signed. He was given a preoperative antibiotic and a left popliteal block. He was taken back to the operative room and laid on the table in supine position. He was put under general anesthesia. The left ankle was prepped and draped in sterile fashion. A timeout was done. The patient and the operative extremity was properly identified. The lateral side was fixed first. A lateral incision was made. Dissection was taken down to the distal tibia. Care was taken not to disrupt the intermediate branch of the peroneal nerve. The fracture was identified and reduced. A 4- hole [employer] distal fibular locking plate was placed. A compression screw was placed proximally and a locking screw was placed distally. Fluoroscopic images showed anatomic alignment of the fracture and the plate. Locking screws were then placed distally and proximally. Screw lengths were checked under fluoroscopy. All screws were tightened. Attention was then turned to the medial side. A curvilinear incision was made over the medial malleolus. Care was taken not to disrupt the saphenous vein. The fracture was identified. It was a very small medial sided piece. The piece was too small to fit a single cancellous screw. I decided to use a medial sided hook plate. The plate was then bent and applied to the distal medial tibia. A screw was placed superiorly perpendicular to the fracture. Locking screws were then placed in the proximal shaft. Fluoroscopic images showed anatomic alignment of the fracture. Final x- rays were taken. The wounds and then irrigated. The incisions were closed with 2-0 Vicryl and rosas. He was then placed in a trauma splint. He was then extubated and transferred to a [facility] [place] [place]. He was taken to the postanesthesia care unit in stable condition. He tolerated procedure well. Declan Doshi PA-C, was present for the entire procedure. He was critical for patient positioning, prepping, draping, retraction exposure, wound closure and application of sterile dressing. I attest to the content of the Intraoperative Record and any orders documented therein. Any exceptions are noted below.
--- NOTE | 2021-07-11 14:38 | Fluoroscopy Report ---
FL ankle LT min 3V RTN CLINICAL HISTORY: LT ORIF COMPARISON STUDY: Left ankle radiographs July 10, 2021. FLUOROSCOPY TIME: 23 seconds. FLUOROSCOPIC IMAGES: 3 FINDINGS: Fluoroscopy was provided during open reduction and internal fixation of the distal left tib ial and fibular fractures. Hardware is intact. Fracture alignment has significantly improved and appe ars anatomic. Talar dome is intact. There are no unexpected radiopaque foreign bodies. IMPRESSION: Fluoroscopy provided during open reduction and internal fixation of the distal left tibi al and fibular fractures. ACT 112: Negative or not required by law. Electronically signed by: Avery Perez M.D. 07/11/2021 2:37 PM
[2021-07-11] MEDS ORDERED: oxyCODONE HCL IR 5 MG TAB (IMMEDIATE RELEASE) PO PRN (15:30)
[2021-07-11] MEDS ORDERED: ACETAMINOPHEN 500 MG TAB PO PRN (15:30)
--- NOTE | 2021-07-11 18:08 | Hospitalist Progress Note ---
Date of Service July 11, 2021 Assessment & Plan (1) Fall: (2) Bimalleolar fracture of left ankle: (3) Status post ORIF of fracture of ankle: (4) BPH (benign prostatic hyperplasia): Plan: Patient slipped on ice on morning of presentation Left ankle x-ray positive for displaced bimalleolar fracture of the tibia and fibula. Left foot x-ray and left tibia/fibula x-ray also reviewed. C-spine CT and head CT are negative for any acute abnormality S/p ORIF today Pain controlled Patient is currently on ASA 81mg bid. I think it will be better to resume home ASA 325mg daily from tomorrow. Will clarify with surgery in AM PT/OT eval Continue home atorvastatin, alfuzosin and finasteride Full code Admission and Anticipated Discharge Date Admission Date: July 10, 2021 Subjective Patient seen and examined Patient just returned from OR Currently denied any pain Denies nausea, vomiting, abd pain, diarrhea Denies cough, chest pain, shortness of breath Denies dysuria, frequency, hematuria Physical Exam Constitutional: + well hydrated; no acute distress Eyes: PERRL, conjunctivae normal, anicteric sclerae ENMT: external ear and nose normal, oropharynx normal Respiratory: normal respiratory effort, lungs clear to auscultation Cardiovascular: Rate/Rhythm: regular rate and regular rhythm S1 S2 Gastrointestinal (Abdomen): normal bowel sounds, soft, nontender, no hepatosplenomegaly Musculoskeletal: Left leg bandaged Neurologic: PERRL, EOMI, accommodation nl, no face palsy, no dysarthria Psychiatric: A+Ox3, euthymic affect Results & Data Results & Data ([facility]) Vital Signs (Past 12 Hours) Vital Signs Temp Pulse Pulse Resp BP Pulse Ox 07/11/21 17:30 36.7 C 88 16 127/72 95 07/11/21 16:35 36.6 C 85 16 109/71 99 07/11/21 16:00 36.6 C 74 16 124/70 94 07/11/21 15:30 36.6 C 87 14 150/67 H 92 07/11/21 15:15 85 16 142/69 H 93 07/11/21 15:05 36.1 C L 90 19 138/71 94 07/11/21 14:55 84 20 146/72 H 98 07/11/21 14:45 90 15 136/72 98 07/11/21 14:36 36.4 C L 99 H 16 139/68 99 07/11/21 11:22 36.7 C 66 18 144/71 H 93 07/11/21 07:14 36.6 C 55 L 18 144/68 H 96 Laboratory Results Abnormal lab results 07/11/21 07/11/21 Range/Units 06:08 06:08 RBC 3.96 L (4.7-6.1) M/uL Hgb 12.1 L (14.0-18.0) g/dL Hct 36.7 L (42-52) % RDW Std Deviation 48.0 H (36.4-46.3) fL MPV 10.9 H (7.4-10.4) fL BUN 31 H (6-23) mg/dl BUN/Creatinine Ratio 22.5 H (10-20) Calcium 8.4 L (8.5-10.1) mg/dl
[2021-07-11] MEDS: ASPIRIN 81 MG ECTAB PO SCH (20:43)
[2021-07-11] MEDS: ATORVASTATIN 40 MG TAB PO SCH (20:43)
--- NOTE | 2021-07-12 06:31 | Anesthesiology Progress Note ---
Date of Service July 12, 2021 Anesthesia Post Procedure Vital Signs Vital Signs: Temp Pulse Pulse Resp BP Pulse Ox 07/12/21 02:27 99.5 F 71 18 130/65 92 07/11/21 22:40 98.6 F 82 18 122/58 L 94 07/11/21 19:43 98.4 F 72 16 130/67 93 07/11/21 18:28 97.7 F 81 18 134/73 90 07/11/21 17:30 98.1 F 88 16 127/72 95 07/11/21 16:35 97.9 F 85 16 109/71 99 07/11/21 16:00 97.9 F 74 16 124/70 94 07/11/21 15:30 97.9 F 87 14 150/67 H 92 07/11/21 15:15 85 16 142/69 H 93 07/11/21 15:05 97.0 F L 90 19 138/71 94 07/11/21 14:55 84 20 146/72 H 98 07/11/21 14:45 90 15 136/72 98 07/11/21 14:36 97.5 F L 99 H 16 139/68 99 07/11/21 11:22 98.1 F 66 18 144/71 H 93 07/11/21 07:14 97.9 F 55 L 18 144/68 H 96 Pain Intensity Left Ankle: Pain Intensity: 1 Transfer of Care Handoff Completed per policy Notes Mental Status: alert / awake / arousable and participated in evaluation Patient Amnestic to Procedure: Yes Nausea / Vomiting: adequately controlled Pain: adequately controlled Airway Patency, RR, SpO2: stable & adequate BP & HR: stable & adequate Hydration State: stable & adequate Anesthetic Complications: no major complications apparent and Pt Satisfied with anesthetic care
--- NOTE | 2021-07-12 06:52 | Orthopedic Progress Note ---
Date of Service July 12, 2021 Assessment & Plan (1) Status post ORIF of fracture of ankle: Overall he is doing about as well as expected. I advised him to keep his ankle elevated. He will be nonweightbearing for 6 weeks. He will be seen by physical therapy today. He is orthopedically stable for discharge when medically ready. He will remain on aspirin 81 mg twice a day for DVT prophylaxis. Full orthopedic discharge instructions were placed in the discharge summary. He can follow-up with orthopedics in 2 weeks. June Munoz was seen and examined at bedside this morning. Overall is doing fairly well. He says his ankle hurts him a little bit sore but not too bad. He had a little difficulty sleeping last night. Otherwise has no complaints. Review of Systems All systems reviewed & are unremarkable except as noted in HPI & below. Physical Exam On physical examination of the left ankle, his ankle is elevated. He has active motion of his toes. The trauma splints in place. Results & Data Results & Data Laboratory Results . Diagnostic Findings . PG Care Time/CCT Total # of Minutes Spent Total Time Spent with Patient: Total time spent is greater than 50% in coordination of care (as documented) at patient's floor/unit and/or counseling patient: Coding Level of Care Code 55463 Post Operative Follow-Up Diagnoses Status post ORIF of fracture of ankle Z98.890; Z87.81
[2021-07-12 07:54] LABS: Hemoglobin 11.5 g/dL (14.0-18.0); Mean Corpuscular Hemoglobin 30.4 pg (25-34); Mean Corpuscular Hgb Conc 32.9 g/dL (32-36); Mean Corpuscular Volume 92.6 fL (80-100); Mean Platelet Volume 10.6 fL (7.4-10.4); Platelet Count 181 K/uL (130-400); Red Blood Count 3.78 M/uL (4.7-6.1); White Blood Count 11.59 K/uL (4.8-10.8)
[2021-07-12] MEDS: FINASTERIDE 5 MG TAB PO SCH (08:24)
[2021-07-12] MEDS: ALFUZOSIN HCL 10 MG TAB PO SCH (08:24)
[2021-07-12] MEDS: ASPIRIN 81 MG ECTAB PO SCH (08:24)
[2021-07-12] MEDS: CHOLECALCIFEROL 1,000 UNITS 25 MCG TAB PO SCH (08:24)
[2021-07-12 08:31] LABS: BUN Creatinine Ratio 20.5 (10-20); Calcium 8.1 mg/dl (8.5-10.1); Creatinine Clr Calc Pharmacy 52.8 ml/min; Est GFR (African American) 63.6 ml/min; Est GFR (Non-African American) 54.9 ml/min
--- NOTE | 2021-07-12 11:05 | Discharge Summary ---
Date of Service July 12, 2021 Admission HPI Per Admitting Provider 80-year-old gentleman with PMH of TIA on full dose aspirin [325 mg daily], HLD, stage III CKD, BPH, actinic keratosis, SCCIS of left ear helix skin presented to our ED 2/6 after slipping on ice today morning. Per patient he slipped on ice outside of his house late morning on the day of arrival, denies any sweating/palpitations/dizziness preceding fall and no loss of consciousness or headache after fall. He twisted his left ankle and fell, not sure if he hit his head but there is a bruise on his right hand. Denies any pain anywhere in the body including left ankle which is already in the cast at the time of bedside examination. Patient denies any fever/chills/headache/dizziness/chest pain/palpitation/sore throat/cough/belly pain/acute changes in bowel or bladder habits/other review of symptoms. Patient reports pain under control. Patient is not a smoker, does not drink alcohol, does not use recreational drugs. No personal history of blood clot or cancer. No family history of blood clot or cancer. History of colon cancer in father in his 80s 70s. No family history of heart attack. Patient was recently diagnosed with TIA couple of months ago and was started on full dose aspirin. 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 No history of chemical exposure. Full code, but wants withdrawal of care if he is deemed to be vegetative. Admission Exam Per Admitting Provider GENERAL: Alert and oriented x3. NAD, on RA. HEENT: No pallor, no icterus. Pupils equal, round and reactive to light. Oral mucosa moist. NECK: No JVD, no neck masses. HEART: S1 and S2 heard. Regular rate and rhythm. No murmur, no gallop. RESPIRATORY SYSTEM: Normal AP diameter. No accessory muscle use. No wheezing, no crackles. ABDOMEN: Soft, bowel sounds present, nontender, no distention. CENTRAL NERVOUS SYSTEM: No facial droop. Speech is clear. Obeys simple commands. Moves extremities. EXTREMITIES: No edema, no erythema seen. LLE knee-high cast, distal neurovascular status WNL. Small bruise over medial aspect of right hand, nontender. Principal Diagnosis Fall Bimalleolar ankle fracture status post ORIF Discharge Exam Gen: WD/WN, NAD, A&O x3 HEENT: Normocephalic, atraumatic, conjunctivae moist, sclerae anicteric, mucous membranes moist. Lung: Clear to Auscultation bilaterally, no wheezes/rales/rhonchi Heart: Regular rate, regular rhythm, no murmurs, rubs, or gallops Abdomen: Soft, NT, ND +BS x 4 Extremities: No edema, LLE splint in place, NVI distally Skin: Warm, no rash, negative turgor. Discharge Data Allergies Allergy/AdvReac Type Severity Reaction Status Date / Time No Known Allergies Allergy Unverified 03/28/21 12:15 Procedures Performed Operation Date: 07/11/21 07:00 Actual Procedures p Left Ankle Open Reduction Internal Fixation(Left) - Declan Medina DO Ordered Studies Ankle X-Ray 07/10/21 12:29 XR ankle LT min 3V routine CLINICAL HISTORY: ankle injury. Pain. COMPARISON STUDY: No previous studies for comparison. TECHNIQUE: 3 left ankle views FINDINGS: Bones: There is evidence for a bimalleolar fracture present. There is oblique fracture present involving the distal fibular metadiaphysis. A transverse fracture is present through the base of the medial malleolus of the tibia. The remaining bones are intact. There is no lytic or blastic lesion. Joints: There is widening of the ankle mortise medially with evidence for displacement of the tibia and fibular shaft medially. Soft tissues: Soft tissue swelling surrounds the ankle. There is no radiopaque foreign body. IMPRESSION: Displaced bimalleolar fractures of the tibia and fibula with widening of the ankle mortise and surrounding soft tissue swelling. ACT 112: Negative or not required by law. Electronically signed by: Mani Herrera M.D. 07/10/2021 1:22 PM Foot X-Ray 07/10/21 12:29 XR foot LT min 3V routine CLINICAL HISTORY: Foot and ankle injury. Pain COMPARISON STUDY: No previous studies for comparison. TECHNIQUE: 3 left foot views FINDINGS: Bones: Displaced bimalleolar fractures of the tibia and fibula are again seen. There is no definite evidence for a fracture of the foot. There is no lytic or blastic lesion. Joints: The joint spaces are maintained. The bones are in anatomic alignment. Soft tissues: There is no focal soft tissue abnormality. There is no radiopaque foreign body. IMPRESSION: Bimalleolar fractures of the distal tibia and fibula are again seen. No definite fracture of the bones of the foot. ACT 112: Negative or not required by law. Electronically signed by: Mani Herrera M.D. 07/10/2021 1:24 PM Tibia/Fibula X-Ray 07/10/21 12:29 XR tibia fibula LT 2V CLINICAL HISTORY: ankle injury. Pain COMPARISON STUDY: Ankle radiographs from the same date TECHNIQUE: AP and lateral views of the upper tibia fibula views FINDINGS: Bones: The proximal tibia and fibula are intact. The displaced, bimalleolar fractures were not included with these films. However, please see ankle report and films for further evaluation. There is no lytic or blastic lesion. Joints: The knee joint space is maintained. The ankle joint is not included. The imaged bones are in anatomic alignment. Soft tissues: There is no focal soft tissue abnormality. There is no radiopaque foreign body. IMPRESSION: No evidence for fracture of the proximal tibia and fibula. The patient has displaced bimalleolar fractures on ankle radiographs. Please see ankle films and report for further evaluation. ACT 112: Negative or not required by law. Electronically signed by: Mani Herrera M.D. 07/10/2021 1:[address] 07/10/21 12:59 CT cervical spine wo con CLINICAL HISTORY: fall, hit head, on asa . Neck pain COMPARISON STUDY: No previous studies for comparison. CT DOSE: 984.32 mGy.cm TECHNIQUE: Standard CT of the Cervical Spine was performed without IV contrast. A dose lowering technique was utilized adhering to the principles of ALARA. FINDINGS: Bones: The bones are osteopenic. There is no evidence for an acute fracture or malalignment. The heights of the vertebral bodies are maintained. The vertebral bodies are in anatomic alignment. The odontoid is intact. Degenerative changes are seen at the atlantoaxial articulation. Disc spaces:Moderate to marked disc space narrowing is present at C5-6 and C6-7 with endplate sclerosis, osteophyte formation and vacuum disc phenomena present. Subchondral cyst formation is also seen involving vertebral body endplates. Apophyseal joints:Extensive degenerative apophyseal joint disease is seen bilaterally. Soft tissues:The prevertebral soft tissues are within normal limits. IMPRESSION: No acute abnormality. Osteopenia with degenerative disc and degenerative joint disease. ACT 112: Negative or not required by law. Electronically signed by: Mani Herrera M.D. 07/10/2021 1:[address] 07/10/21 12:59 CT head/brain wo con CLINICAL HISTORY: fall, hit head, on asa COMPARISON STUDY: 03/28/2021 CT DOSE: TECHNIQUE: Standard CT of the Brain was performed without IV contrast. A dose lowering technique was utilized adhering to the principles of ALARA. FINDINGS: Extraaxial space: The ventricles are mildly dilated bilaterally. There are no extra-axial fluid collections. Ventricles and cisterns: The ventricles are normal in size and configuration. There is no evidence for midline shift or mass effect. Parenchyma: There is no subarachnoid or intraparenchymal hemorrhage. There is no evidence for an acute infarct or cerebral edema. There is mild cerebral cortical atrophy and decreased attenuation in the periventricular white matter representing remote small vessel disease. There are no gross mass lesions. Osseous structures: There is no evidence for an acute fracture. The visualized paranasal sinuses are clear. The mastoid air cells are clear bilaterally. Soft tissues: There is no evidence for focal soft tissue swelling. IMPRESSION: No acute intracerebral pathology. Cerebral cortical atrophy and remote small vessel disease are again seen. ACT 112: Negative or not required by law. Electronically signed by: Mani Herrera M.D. 07/10/2021 1:43 PM Ankle X-Ray 07/10/21 13:14 XR ankle LT min 3V routine CLINICAL HISTORY: post-splinting/reduction. COMPARISON STUDY: 07/10/2021 TECHNIQUE: 3 left ankle views FINDINGS: Compared to the previous examination, there has been partial reduction of previously identified bimalleolar fractures of the distal tibia and fibula. As been reduction of previous be identified widening of the ankle mortise. The ankle is in a fiberglass splint. IMPRESSION: Status post partial interval reduction of previously identified displaced bimalleolar fractures. ACT 112: Negative or not required by law. Electronically signed by: Mani Herrera M.D. 07/10/2021 1:40 PM Ankle X-Ray 07/11/21 12:30 FL ankle LT min 3V RTN CLINICAL HISTORY: LT ORIF COMPARISON STUDY: Left ankle radiographs July 10, 2021. FLUOROSCOPY TIME: 23 seconds. FLUOROSCOPIC IMAGES: 3 FINDINGS: Fluoroscopy was provided during open reduction and internal fixation of the distal left tibial and fibular fractures. Hardware is intact. Fracture alignment has significantly improved and appears anatomic. Talar dome is intact. There are no unexpected radiopaque foreign bodies. IMPRESSION: Fluoroscopy provided during open reduction and internal fixation of the distal left tibial and fibular fractures. ACT 112: Negative or not required by law. Electronically signed by: Avery Perez M.D. 07/11/2021 2:37 PM Short CBC 07/11/21 07/12/21 07/12/21 Range/Units 06:08 07:31 07:31 WBC 11.59 H (4.8-10.8) K/uL Hgb 11.5 L (14.0-18.0) g/dL Hct 35.0 L (42-52) % Plt Count 181 (130-400) K/uL Creatinine 1.38 1.22 (0.6-1.4) mg/dl BMP 07/12/21 07:31 Sodium 134 L Potassium 4.0 Chloride 102 Carbon Dioxide 26 BUN 25 H Creatinine 1.22 Glucose 114 H Calcium 8.1 L Hospital Course (1) Fall: (2) Bimalleolar fracture of left ankle: (3) Status post ORIF of fracture of ankle: (4) BPH (benign prostatic hyperplasia): This is an 80-year-old male with past medical history of TIA on full dose aspirin, HLD, CKD stage III, BPH who presented to ED on 07/10 after slipping on the ice. Left ankle x-ray was positive for displaced bimalleolar fracture of tibia and fibula. C-spine CT and head CT were negative for any acute abnormality. He was seen and evaluated by orthopedics and underwent left ankle ORIF on 07/11/2021. He tolerated the procedure well. His pain was well controlled. At time of discharge she has not required any oral narcotics, but is requesting to be discharged on oral oxycodone in event of severe pain. He was seen and evaluated by PT and OT who recommended DC to home with home health. Pt declined home health services and will contact PCP if he changes his mind. He is nonweightbearing to the left lower extremity for 6 weeks. He currently has a left lower extremity splint in place and is to remain in place until follow-up with orthopedics. He is to not get the splint wet. On day of discharge he was able to ambulate with walker and maintain nonweightbearing status. He was tolerating regular diet and offers no acute concerns. Patient will resume ASA 325mg for DVT prophylaxis prevention as well as history of TIA. He will continue all other home medications and follow-up with PCP and orthopedics as scheduled. Total Time Total Time Spent Total Time Spent (In Minutes): 60 minutes Total Time Includes: Examination of the Patient, Discharge Planning, Medication Reconciliation, Communication With Other Providers and Other Discharge Plan Discharge Items Patient Disposition: Home - Home Health Services Reason For Visit: SLIPPED, LEFT ANKLE FRACTURE Discharge Diagnosis: Fall Bimalleolar ankle fracture status post ORIF Condition on Discharge: Good Activity: Per Instructions section Lifting: None Bathing Comment: Do not get L lower extremity splint wet Driving/Machine Use: No driving until cleared by Dr. Medina Weightbearing: Left non-weightbearing Non-emergency contact: Primary Care Provider and Surgeon Call non-emergency contact if: you have any medication questions, your symptoms worsen, your pain is not controlled, your pain is worsening, your pain is unusual for you, your pain is concerning for you, you have a fever and your temperature is above 101 Follow-up/Referrals: Yolanda Grace MD [Primary Care Provider] - (Date & Time 07/15/2021 11:00 AM Provider Yolanda Grace MD Department General Internal Medicine [facility] ) Diet: Heart Healthy Addtl Attending Provider Instructions: MEDICATION CHANGES: Recommend taking Tylenol 500 mg every 6 hours for pain. Oxycodone 5 mg every 4 hours as needed for severe pain. Continue all other medications as prescribed. SUMMARY OF TEST RESULTS: You were admitted to hospital secondary to fall and left bimalleolar ankle fracture. You were seen and evaluated by orthopedics. You underwent open reduction internal fixation of left ankle in a splint was placed on your left leg. You are to remain nonweightbearing for the next 6 weeks and you will follow-up with orthopedics as scheduled. PENDING TEST RESULTS: None RECOMMENDATIONS FOR FOLLOW-UP: Please follow-up with primary care provider as scheduled. Please follow-up with orthopedics as scheduled. You will remain nonweightbearing on left lower extremity for 6 weeks, until seen by orthopedics. If taking pain medication, oxycodone, recommend taking daily stool softener to prevent constipation. If taking pain medication, oxycodone, do not operate heavy machinery or get behind the wheel of the vehicle. Do not drive until cleared by orthopedics. Stay well-hydrated, drinking 60 to 80 ounces of noncaffeinated/nonalcoholic beverages daily. OTHER INSTRUCTIONS: Seek medical attention if you have: * temperature above 101 * chest pain or trouble breathing * abdominal pain, nausea, vomiting * diarrhea, dark stools or bloody stools * any unanswered questions or concerns Call 911 if symptoms are severe. Please take good care of yourself. It has been a pleasure taking care of you. Please take care of yourself. If you have any questions regarding your recent hospitalization please contact [facility] and request geovanna Hospitalist @ [phone]. Anju Cunha PA-C Addtl [employer] Order Clerk Provider Instructions: ORTHOPEDIC INSTRUCTIONS Activity Recommendations: Nonweightbearing on the left ankle for at least 6 weeks Medications: Continue ASA 325mg daily for DVT prophylaxis Continue all other home medications. Dressing Care: Keep the splint clean and dry until follow-up in the office Showering: Do not get left ankle splint wet. Follow-Up Visit: Follow-up with Dr. Medina's PA (Declan Doshi) 2-3 weeks after your day of surgery. He will remove your rosas and answer any questions. If you have any additional questions or concerns, Dr Medina is usually in the office at the same time and will be available Please call for a time that works for you. Pending Studies at Discharge: No Stand-Alone Forms: My [facility], Opioid Pain Management, Smoking Cessation Medications and DC Order Prescriptions: New oxycodone 5 mg Tablet 5 mg PO Q4H PRN (Reason: severe pain (scale score 7-10)) Qty: 10 RF: 0 Continued atorvastatin 40 mg tablet 40 mg PO QPM RF: 0 aspirin 325 mg Tablet 325 mg PO QPM RF: 0 finasteride 5 mg tablet 5 mg PO DAILY RF: 0 alfuzosin 10 mg tablet extended release 24 hr 10 mg PO DAILY RF: 0 cholecalciferol (vitamin D3) [Vitamin D3] 25 mcg (1,000 unit) Tablet 25 mcg PO DAILY RF: 0 Discharge Orders: Discharge Order (Routine); Ordered 07/12/21 Ordered By: Anju Cunha Admission Data Admit Date/Time: 07/10/21 14:20 Attending Provider: Kelin Blanco I. Admit Provider: Don Duggan Primary Care Provider: Yolanda Grace Other Providers: Anju Cunha Other Interventions: Discharge Summary Assessment (RN) Last Done: 07/12/21 13:34 Supervising Physician Co-Signing Physician Notes Patient seen and examined 80-year-old gentleman with PMH of TIA on full dose aspirin [325 mg daily], HLD, stage III CKD, BPH, actinic keratosis, SCCIS of left ear helix skin presented to our ED 2/6 after slipping on ice Had a bimalleolar left ankle fracture on XR S/P ORIF Patient has no complaints today. Did well with PT today Needs to follow up with surgery outpatient. Use walker as instructed Agree with findings and plans as detailed by Anju Cunha PA-C
== END 2021-07-12 14:54 | disposition home health service (06) | DRG 494 ==
LOC: ED 12:10 → 3E 14:20 → SUATTDRO 14:20 → 3E 16:43

== ENCOUNTER 2023-09-03 11:32 | Observation (INO) ==
--- NOTE | 2023-09-03 12:01 | Emergency Department Note ---
History of Present Illness General Chief complaint: Syncope Time Seen by Provider: 09/03/23 11:39 History of Present Illness Provider complaint: Syncope 82-year-old male presents emergency department for syncope. Patient states earlier today he was at the [facility] and exercising. He states he did rowing exercises, push-ups, sit ups and then began using 10 pound weights. He states that after he was using his 10 pound weights he started developing pain in his left lower upper extremity I then he states he felt like he was going to pass out. Patient states he does not remember what happened next but the who is at bedside states a young woman at the [facility] helped lower the patient to the ground. According to the the patient did not hit his head. According to the patient was very confused afterwards but is now alert and oriented. Patient is currently reporting no chest pain difficulty breathing headache nausea vomiting or diarrhea. Patient reports history of TIA. No blood thinners. Home Medications Medication Instructions Recorded Confirmed Type alfuzosin 10 mg tablet,extended 10 mg PO DAILY 03/28/21 09/03/23 History release 24 hr cholecalciferol (vitamin D3) 25 25 mcg PO DAILY 03/28/21 09/03/23 History mcg (1,000 unit) tablet (Vitamin D3) finasteride 5 mg tablet 5 mg PO DAILY 03/28/21 09/03/23 History aspirin 325 mg tablet 325 mg PO QPM 07/11/21 09/03/23 History atorvastatin 40 mg tablet 40 mg PO DAILY 07/11/21 09/03/23 History albuterol sulfate 90 mcg/actuation 2 puff inhalation QID PRN 09/03/23 09/03/23 History aerosol inhaler (Ventolin HFA) Shortness Of Breath Or Wheezing levocetirizine 5 mg tablet 5 mg PO HS 09/03/23 09/03/23 History Allergies Allergy/AdvReac Type Severity Reaction Status Date / Time No Known Allergies Allergy Unverified 03/28/21 12:15 Past Med/Surg History Medical History (Updated 09/03/23 @ 18:13 by Olu Flowers MD) Asthma CKD (chronic kidney disease), stage III Brain TIA High cholesterol Surgical History Status post ORIF of fracture of ankle (~07/2021) Family History Other Colorectal cancer Social History Smoking Status: Never smoker Hx Alcohol Use: No Hx Substance Use: No Preferred Language: Bulgarian Communication Ability: Effective Fermenter Helper Required: No Beliefs That Will Affect Care: None Current Living Situation: Spouse Feels Safe at Home: Yes Assistive Devices: Walker Physical Exam Vital Signs Vital Signs - 24 hr 09/03/23 11:22 09/03/23 11:22 09/03/23 11:22 Temperature 36.6 C 36.6 C Temperature Source Oral Oral Pulse Rate 55 L Pulse Rate [Apical] 55 L Pulse Rate from SpO2 Sensor Pulse Rhythm Respiratory Rate 17 17 Respiratory Effort / Characteristics Non-Labored Non-Labored Respiratory Depth Normal Normal Respiratory Pattern Regular Regular Blood Pressure 125/69 Blood Pressure [Left Arm] 125/69 Blood Pressure Mean 87 Blood Pressure Mean [Left Arm] 87 Pulse Oximetry 94 94 94 Oxygen Delivery Method Room Air Room Air Room Air Sepsis Recent Fever Within 48 Hours No Sepsis New/Unexplained Change in Mental Status N/A Sepsis Action Taken by Nursing No Action Required 09/03/23 11:41 09/03/23 11:47 09/03/23 11:55 Temperature Temperature Source Pulse Rate 53 L 57 L 57 L Pulse Rate [Apical] Pulse Rate from SpO2 Sensor 54 L Pulse Rhythm Regular Respiratory Rate 23 17 Respiratory Effort / Characteristics Respiratory Depth Respiratory Pattern Blood Pressure 125/69 Blood Pressure [Left Arm] Blood Pressure Mean 87 Blood Pressure Mean [Left Arm] Pulse Oximetry 92 94 Oxygen Delivery Method Room Air Sepsis Recent Fever Within 48 Hours Sepsis New/Unexplained Change in Mental Status Sepsis Action Taken by Nursing 09/03/23 12:12 09/03/23 12:30 09/03/23 13:00 Temperature Temperature Source Pulse Rate 54 L 50 L 53 L Pulse Rate [Apical] Pulse Rate from SpO2 Sensor 60 50 L 52 L Pulse Rhythm Respiratory Rate 21 24 22 Respiratory Effort / Characteristics Respiratory Depth Respiratory Pattern Blood Pressure 146/69 H 123/61 132/84 Blood Pressure [Left Arm] Blood Pressure Mean 94 81 100 Blood Pressure Mean [Left Arm] Pulse Oximetry 88 L 94 94 Oxygen Delivery Method Sepsis Recent Fever Within 48 Hours Sepsis New/Unexplained Change in Mental Status Sepsis Action Taken by Nursing Physical Exam GENERAL: He is oriented to person, place, and time. He appears well-developed and well-nourished. He does not appear distressed. HENT: Exam performed. - Head: Normocephalic and atraumatic. - Right Ear: External ear normal. No mastoid erythema - Left Ear: External ear normal. No mastoid erythema - Mouth/Throat: The oropharynx is clear and moist. No trismus in the jaw. No dental abscesses or uvula swelling. No oropharyngeal exudate or tonsillar abscesses. EYES: Conjunctivae and EOM are normal. Pupils are equal, round, and reactive to light. Right eye exhibits no discharge. Left eye exhibits no discharge. No scleral icterus. NECK: Normal range of motion. Neck supple. No JVD present. CV: Normal rate, regular rhythm, normal heart sounds and intact distal pulses. There is no peripheral edema. Palpable radial pulses bue. PULM/CHEST: Effort normal and breath sounds normal. No respiratory distress. No stridor. He has no wheezes. He has no rales. - Chest Wall: He exhibits no tenderness. ABD: The abdomen is soft. There is no tenderness. There is no rebound, no guarding. MUSC/SKEL: Normal range of motion. There is no peripheral edema, tenderness or deformity. NEURO: He is alert and oriented to person, place, and time. He has normal strength. No cranial nerve deficit or sensory deficit. Coordination normal. GCS eye subscore is 4. GCS verbal subscore is 5. GCS motor subscore is 6. Cerebellar tests wnl. SKIN: Skin is warm and dry. He is not diaphoretic. PSYCH: He has a normal mood and affect. Behavior is normal. Judgment and thought content normal. Course Course 1139: The patient was evaluated in room C9. A complete history and physical exam was performed Cardiac monitoring: An order was placed for continuous cardiac monitoring. The monitor shows a rate of 60 with sinus rhythm interpreted by me 1245: Vital signs stable. Labs and imaging within normal limits. Patient will be admitted to the [facility] team for syncope workup. Administered Medications Heparin Sodium (Porcine) (Heparin Sod 5,000 Unit/0.5 Ml Vial) 5,000 units SQ Q8 MERRY Stop: 10/03/23 14:18 Last Admin: 09/03/23 16:10 Dose: 5,000 units Documented By: ANJEL Medical Decision Making Laboratory Data Attestation: I reviewed the patient's lab results. 09/03/23 11:47 09/03/23 11:47 Lab Results 09/03/23 Range/Units 11:47 WBC 7.07 (4.8-10.8) K/ul RBC 4.53 L (4.70-6.10) M/uL Hgb 13.6 L (14.0-18.0) g/dl Hct 41.8 L (42.0-52.0) % MCV 92.3 (80.0-100.0) fL MCH 30.0 (25.0-34.0) pg MCHC 32.5 (32.0-36.0) g/dL RDW Std Deviation 43.8 (36.4-46.3) fL RDW Coeff of Gia 13.0 (11.5-14.5) % Plt Count 205 (130-400) K/uL MPV 10.6 (9.4-12.4) fL Immature Gran % (Auto) 0.3 % Neut % (Auto) 64.5 % Lymph % (Auto) 20.8 % [place] % (Auto) 9.5 % Eos % (Auto) 4.1 % Baso % (Auto) 0.8 % Neut # (Auto) 4.56 (1.40-6.50) K/uL Lymph # (Auto) 1.47 (1.20-3.40) K/uL [place] # (Auto) 0.67 H (0.11-0.59) K/uL Eos # (Auto) 0.29 (0.00-0.50) K/uL Baso # (Auto) 0.06 (0.00-0.20) K/uL Immature Gran # (Auto) 0.02 (0.01-0.20) K/uL PT 10.5 (9.0-12.0) Seconds INR 1.0 (0.9-1.1) APTT 26 (21-31) Seconds PTT Ratio 0.9 Sodium 138 (136-145) mmol/L Potassium 4.5 (3.5-5.1) mmol/L Chloride 106 (98-107) mmol/L Carbon Dioxide 25 (21-32) mmol/L Anion Gap 7 (3-11) BUN 31 H (6-23) mg/dl Creatinine 1.36 (0.6-1.4) mg/dl Est Cr Clr Drug Dosing 45.7 ml/min Est GFR ( Amer) 55.0 ml/min Est GFR (Non-Af Amer) 47.4 ml/min BUN/Creatinine Ratio 22.8 H (10-20) Glucose 105 H (70-99(Fasting)) mg/dl Calcium 9.2 (8.6-10.3) mg/dl Troponin I High Sens 5.1 (0-20) pg/ml Lipase 18 (11-82) U/L Imaging Data Attestation: I personally reviewed and interpreted this imaging study as follows: My Impression: Chest x-ray negative. Airway clear. No pneumothorax. No consolidation. No cardiomegaly or cephalization.. No free air under the diaphragm. No fractures of the skeletal structures. Radiologist's Impression: Chest X-Ray 09/03/23 11:55 XR chest 1V portable CLINICAL HISTORY: Chest pain, nonspecific TECHNIQUE: Single frontal radiograph of the chest was obtained. Comparison: Comparison is made to chest radiograph 02/10/2022 FINDINGS: No lines and tubes are seen. Calcified aortic knob is seen. The lungs are clear. No evidence of pleural effusion or pneumothorax. IMPRESSION: No acute chest disease. ACT 112: Negative or not required by law. Electronically signed by: William Martin M.D. 09/03/2023 12:[address] 09/03/23 11:56 CT OF THE HEAD WITHOUT CONTRAST CLINICAL HISTORY: Syncope. COMPARISON STUDY: Head CT July 10, 2021. CT DOSE: 625.8 mGy.cm TECHNIQUE: Helical axial images of the head were obtained without IV contrast. Automated exposure control was utilized for the study. A dose lowering technique was utilized adhering to the principles of ALARA. FINDINGS: No acute intracranial hemorrhage, midline shift or mass effect is present. The ventricular system is unremarkable. The basal cisterns are patent. No extra-axial collections are present. There are no findings to suggest acute dural sinus thrombosis or acute territorial infarct. No significant calvarial abnormalities are present. Visualized portions of the sinuses and mastoid air cells are clear. IMPRESSION: 1. No acute intracranial findings. 2. No calvarial fractures. ACT 112: Negative or not required by law. Electronically signed by: Avery Perez M.D. 09/03/2023 12:23 PM ECG Data Attestation: I personally reviewed and interpreted this ECG as follows: Rate (beats per minute): 55 Rhythm: + normal sinus ECG Intervals/blocks: + Normal QRS, + Normal DC and + Normal QT-c ECG ST segments: + Normal ST segments [facility] Narrative 1139: The patient was evaluated in room C9. A complete history and physical exam was performed Cardiac monitoring: An order was placed for continuous cardiac monitoring. The monitor shows a rate of 60 with sinus rhythm interpreted by me 1245: Vital signs stable. Labs and imaging within normal limits. Patient will be admitted to the [facility] team for syncope workup. Impression & Plan Syncope Discharge Plan Visit Data Chief Complaint: Syncope ED Provider: Olu Flowers Discharge Problem: Syncope Patient Disposition: Admitted As Inpatient Discharge Instructions Interventions: ED Discharge Assessment Last Done: 09/03/23 13:58 Discharge Problem: Syncope Qualifiers: Syncope type: unspecified Qualified Code(s): R55 - Syncope and collapse
[2023-09-03 12:12] LABS: Basophils # (auto) 0.06 K/uL (0.00-0.20); Basophils % (auto) 0.8 %; Eosinophils # (auto) 0.29 K/uL (0.00-0.50); Eosinophils % (auto) 4.1 %; Hematocrit (blood only) 41.8 % (42.0-52.0); Hemoglobin 13.6 g/dl (14.0-18.0); Immature Granulocytes # (auto) 0.02 K/uL (0.01-0.20); Immature Granulocytes % (auto) 0.3 %; Lymphocytes # (auto) 1.47 K/uL (1.20-3.40); Lymphocytes % (auto) 20.8 %; Mean Corpuscular Hgb Conc 32.5 g/dL (32.0-36.0); Mean Corpuscular Volume 92.3 fL (80.0-100.0); Mean Platelet Volume 10.6 fL (9.4-12.4); Monocytes # (auto) 0.67 K/uL (0.11-0.59); Monocytes % (auto) 9.5 %; Neutrophils # (auto) 4.56 K/uL (1.40-6.50); Neutrophils % (auto) 64.5 %; Platelet Count 205 K/uL (130-400); RDW Standard Deviation 43.8 fL (36.4-46.3); Red Blood Count 4.53 M/uL (4.70-6.10); White Blood Count 7.07 K/ul (4.8-10.8)
[2023-09-03 12:19] LABS: Partial Thromboplastin Ratio 0.9; Partial Thromboplastin Time 26 Seconds (21-31); Prothrombin Time 10.5 Seconds (9.0-12.0)
--- NOTE | 2023-09-03 12:22 | XRay Report ---
XR chest 1V portable CLINICAL HISTORY: Chest pain, nonspecific TECHNIQUE: Single frontal radiograph of the chest was obtained. Comparison: Comparison is made to chest radiograph 02/10/2022 FINDINGS: No lines and tubes are seen. Calcified aortic knob is seen. The lungs are clear. No evidence of pleur al effusion or pneumothorax. IMPRESSION: No acute chest disease. ACT 112: Negative or not required by law. Electronically signed by: William Martin M.D. 09/03/2023 12:21 PM
--- NOTE | 2023-09-03 12:24 | CT Scan Report ---
CT OF THE HEAD WITHOUT CONTRAST CLINICAL HISTORY: Syncope. COMPARISON STUDY: Head CT July 10, 2021. CT DOSE: 625.8 mGy.cm TECHNIQUE: Helical axial images of the head were obtained without IV contrast. Automated exposure con trol was utilized for the study. A dose lowering technique was utilized adhering to the principles o f ALARA. FINDINGS: No acute intracranial hemorrhage, midline shift or mass effect is present. The ventricular system is unremarkable. The basal cisterns are patent. No extra-axial collections are present. There are no findings to suggest acute dural sinus thrombosis or acute territorial infarct. No significant calvarial abnormalities are present. Visualized portions of the sinuses and mastoid air cells are sulma ar. IMPRESSION: 1. No acute intracranial findings. 2. No calvarial fractures. ACT 112: Negative or not required by law. Electronically signed by: Avery Perez M.D. 09/03/2023 12:23 PM
[2023-09-03 12:28] LABS: BUN Creatinine Ratio 22.8 (10-20); Calcium 9.2 mg/dl (8.6-10.3); Creatinine Clr Calc Pharmacy 45.7 ml/min; Est GFR (Non-African American) 47.4 ml/min; Potassium 4.5 mmol/L (3.5-5.1)
[2023-09-03 12:33] LABS: Troponin I High Sensitivity 5.1 pg/ml (0-20)
--- NOTE | 2023-09-03 13:13 | History & Physical Report ---
Date of Service September 03, 2023 Assessment & Plan (1) Sinus bradycardia: (2) Syncope: Plan: This is an 82-year-old male with PMH of TIA a few years ago, CKD 3, hyperlipidemia, mild asthma, BPH and other medical problems as below who presents after syncopal event witnessed at the [facility] earlier today. Third episode of witnessed syncope in past 9 months in setting while working out More fatigue over the past few months Telemetry reveals sinus bradycardia with HR in the low 50's CT head without acute intracranial abnormalities CXR without acute changes Not on Beta hebert or CCB Ordered 2D echo, carotid dopplers, orthostatics Hold alfuzosin Routine cards consult Repeat EKG in AM Observation on tele overnight (3) Brain TIA: Plan: Occurred a few years ago, no additional neuro events since then. Continue aspirin, statin (4) CKD (chronic kidney disease), stage III: Plan: Cr 1.36 on admission (baseline 1.2-1.4) Monitor with daily BMP (5) Asthma: Plan: Continue albuterol inhaler, O2 saturation 94% on room air (6) BPH (benign prostatic hyperplasia): Plan: Continue finasteride, hold alfuzosin with concern for orthostatic hypotention. Consider transitioning to Tamsulosin Bladder scan PRN DVT Ppx: SQ heparin Code status: FULL PCP: Lesly Dispo: observation PCU Patient seen in collaboration with Dr. Reardon. Please see addendum. I spent a total of 75 minutes coordinating, documenting, and providing care for this patient excluding time spent in the performance of separately billed services. History of Present Illness Chief Complaint: Syncope Primary Care Provider: Yolanda Grace MD This is an 82-year-old male with PMH of TIA a few years ago, CKD 3, hyperlipidemia, mild asthma, BPH and other medical problems as below who presents after syncopal event witnessed at the [facility] earlier today. Patient works out regularly and just returned from 4 months away in [place] where he and his spent the winter. While there, he had been swimming 3x/week and had been walking as well. Since returning home, [facility] [employer] Was finishing a set of arms with 10 pound dumbbells earlier today when his arm started to feel tired and he took a seat on the bench. Next memory was lying down on the bench where a bystander had reportedly lowered him to the ground. No head trauma. Unsure how long episode was. Had intermittent confusion and was brought to ED for further evaluation. Upon arrival, was mentating back to baseline. at bedside states he had 2 similar syncopal episodes over the summer while participating in [employer]. Those instances were similar where he was standing up working out, felt fatigued and sat down and then passed out. states over the past 3 months he is becoming more tired at baseline and unwilling to do things he would have in the past like go on neighborhood walks. Also endorses feeling cold and needing to turn the heat up. No known history of arrhythmias. Not on a beta hebert. Poor water intake at baseline, per . Denies any chest pain, palpitations, shortness of breath, nausea, vomiting, abdominal pain, dysuria, diarrhea or constipation. Allergies Allergy/AdvReac Type Severity Reaction Status Date / Time No Known Allergies Allergy Unverified 03/28/21 12:15 Home Medications Medication Instructions Recorded Confirmed Type alfuzosin 10 mg tablet,extended 10 mg PO DAILY 03/28/21 09/03/23 History release 24 hr cholecalciferol (vitamin D3) 25 25 mcg PO DAILY 03/28/21 09/03/23 History mcg (1,000 unit) tablet (Vitamin D3) finasteride 5 mg tablet 5 mg PO DAILY 03/28/21 09/03/23 History aspirin 325 mg tablet 325 mg PO QPM 07/11/21 09/03/23 History atorvastatin 40 mg tablet 40 mg PO DAILY 07/11/21 09/03/23 History albuterol sulfate 90 mcg/actuation 2 puff inhalation QID PRN 09/03/23 09/03/23 History aerosol inhaler (Ventolin HFA) Shortness Of Breath Or Wheezing levocetirizine 5 mg tablet 5 mg PO HS 09/03/23 09/03/23 History Past Med/Surg History Medical History (Updated 09/03/23 @ 18:13 by Olu Flowers MD) Asthma CKD (chronic kidney disease), stage III Brain TIA High cholesterol Surgical History Status post ORIF of fracture of ankle (~07/2021) Family History Other Colorectal cancer Social History Smoking Status: Never smoker Do You Dip or Chew Tobacco: No; Hx Alcohol Use: No Hx Substance Use: No Preferred Language: Romansh Communication Ability: Effective Impersonator Character Required: No Beliefs That Will Affect Care: None Current Living Situation: Spouse Other Information That Helps Us Care for You: No Feels Safe at Home: Yes Assistive Devices: Glasses Review of Systems Review of Systems: At least ten systems reviewed and negative except as noted in the HPI. Physical Exam Physical Exam: General Appearance: WD/WN, vitals as above, NAD, sitting up in bed, pleasant, conversing easily Head: normocephalic, atraumatic Eyes: normal inspection, PERRL, conjunctivae normal, anicteric sclerae ENT: external ear and nose normal, oropharynx normal Neck: normal visual inspection, trachea midline, no thyromegaly Respiratory: normal respiratory effort, decreased lung sounds with expiratory wheeze left base. No accessory muscle use Cardiovascular: bradycardic rate, regular rhythm, normal peripheral pulses, no BLE edema. Vessels: no JVD Chest: normal inspection of chest Abdomen/GI: normal bowel sounds, soft, nontender, no hepatosplenomegaly Extremities/Musculoskeletal: no cyanosis or clubbing, extremities motor strength 5/5 Neurologic: PERRL, EOMI, accommodation nl, no face palsy, no dysarthria, CN's II-XI intact bilaterally and moves all extremities Psychiatric: A+Ox3, euthymic affect Skin: no rashes, normal color, warm/dry Results & Data Results & Data Vital Signs (Past 12 Hours) Vital Signs Temp Pulse Pulse Resp BP BP Pulse Ox 09/03/23 11:55 57 L 17 94 09/03/23 11:47 57 L 09/03/23 11:22 36.6 C 55 L 17 125/69 94 09/03/23 11:22 94 09/03/23 11:22 36.6 C 55 L 17 125/69 94 O2 Del Method 09/03/23 11:55 Room Air 09/03/23 11:47 09/03/23 11:22 Room Air 09/03/23 11:22 Room Air 09/03/23 11:22 Room Air Laboratory Results Short CBC 09/03/23 Range/Units 11:47 WBC 7.07 (4.8-10.8) K/ul Hgb 13.6 L (14.0-18.0) g/dl Hct 41.8 L (42.0-52.0) % Plt Count 205 (130-400) K/uL BMP 09/03/23 11:47 Sodium 138 Potassium 4.5 Chloride 106 Carbon Dioxide 25 BUN 31 H Creatinine 1.36 Glucose 105 H Calcium 9.2 Urine 09/03/23 Range/Units 14:24 Urine Color Yellow Urine Appearance Clear (Clear) Urine pH 6.5 (4.5-7.5) Ur Specific [place] 1.016 (1.000-1.030) Urine Protein Negative (Negative) Urine Glucose (UA) Negative (Negative) Diagnostic Findings Chest X-Ray 09/03/23 11:55 XR chest 1V portable CLINICAL HISTORY: Chest pain, nonspecific TECHNIQUE: Single frontal radiograph of the chest was obtained. Comparison: Comparison is made to chest radiograph 02/10/2022 FINDINGS: No lines and tubes are seen. Calcified aortic knob is seen. The lungs are clear. No evidence of pleural effusion or pneumothorax. IMPRESSION: No acute chest disease. ACT 112: Negative or not required by law. Electronically signed by: William Martin M.D. 09/03/2023 12:[address] 09/03/23 11:56 CT OF THE HEAD WITHOUT CONTRAST CLINICAL HISTORY: Syncope. COMPARISON STUDY: Head CT July 10, 2021. CT DOSE: 625.8 mGy.cm TECHNIQUE: Helical axial images of the head were obtained without IV contrast. Automated exposure control was utilized for the study. A dose lowering techn ique was utilized adhering to the principles of ALARA. FINDINGS: No acute intracranial hemorrhage, midline shift or mass effect is present. The ventricular system is unremarkable. The basal cisterns are patent. No extra-axial collections are present. There are no findings to suggest acute dural sinus thrombosis or acute territorial infarct. No significant calvarial abnormalities are present. Visualized portions of the sinuses and mastoid air cells are clear. IMPRESSION: 1. No acute intracranial findings. 2. No calvarial fractures. ACT 112: Negative or not required by law. Electronically signed by: Avery Perez M.D. 09/03/2023 12:23 PM Code Status & VTE Plan VTE Prophylaxis Plan VTE Prophylaxis will be ordered: Yes Supervising Physician Co-Signing Physician Notes Pt was seen and examined by myself, Valerie Reardon MD on the day of service. Care was coordinated with Anabella Villeda PA-C. 82yoM presenting after a syncopal episode at the gym while lifting weights. Per present at bedside, he had a similar episode at [employer] last summer. They did not follow up at that time. Notes that he has been active all his life. Not on a beta hebert, denies a Hx of known bradycardia. On exam AAOx3, pleasant. Noted HR drops into the 40s while present in the room on monitor, otherwise in the 50s. RRR on exam. Syncope: head CT unremarkable, UA unremarkable, denies recent acute illness. consider brain MRI, CTA head and neck. Hold home finasteride, orthostatics, workup of sinus bradycardia as below. Sinus Bradycardia- denies this Hx, not on BB. Noted on EKG. Possible SSS? Cardiology consulted, echo, continued telemetry monitoring. Anemia- chronic, consider further workup as a possible/contributing cause Otherwise as above. I spent a total [id number] coordinating, documenting, and providing care for this patient excluding time spent in the performance of separately billed services
[2023-09-03] MEDS ORDERED: ONDANSETRON INJ 2 MG/ML 2 ML VIAL IV PRN (14:19)
[2023-09-03] MEDS ORDERED: POLYETHYLENE (MIRALAX) 17 GM PACK PO PRN (14:19)
[2023-09-03] MEDS ORDERED: ACETAMINOPHEN 325 MG TAB PO PRN (14:19)
[2023-09-03 14:55] LABS: Appearance Urine Clear (Clear); Bilirubin Urine Negative (Negative); Blood Urine Negative (Negative); Color Urine Yellow; Glucose Urine UA Negative (Negative); Ketones Urine Negative (Negative); Leukocyte Esterase Urine Negative (Negative); Nitrite Urine Negative (Negative); Protein Urine Negative (Negative); Specific Gravity Urine 1.016 (1.000-1.030); Urobilinogen Urine Negative (Negative); pH Urine 6.5 (4.5-7.5)
--- NOTE | 2023-09-03 15:44 | Cardiology Consultation ---
Date of Consultation September 03, 2023 Assessment & Plan (1) Syncope: (2) Sinus bradycardia: Plan Patient admitted after a syncopal episode at the [facility]. Patient was sitting on a weight bench when episode occurred and bystanders loweredd him to the floor. No incontinence No seizure like activity. Duration of unconsciousness is unknown. This is 3rd episode in 9 months. Other episodes were similar, without warning and with true LOC. He denies recent dizziness reports he has been more fatigued lately. He was mildly dehydrated on arrival. Telemetry reveals sinus bradycardia with HR in the low 50's. No pauses. Currently he is asymptomatic. He is not on Beta hebert or CCB HS troponin unremarkable. Echocardiogram is pending. Order carotid duplex. Recommend ongoing telemetry overnight. Given this is his 3rd event, would consider loop recorder implantation vs need for PPM if he has worsening bradycardic events overnight. Hydration encouraged. Case discussed with Dr. Azul I spent a total of 60 minutes on the date of service in preparation, delivery, and documentation of the care provided to this patient, excluding any time spent in the performance of separately billed services. Marylu Sapp PA-C Department of Cardiology, [facility] This chart was completed in part utilizing Speech Voice Recognition Software. Grammatical errors, random word insertions, pronoun errors, and incomplete sentences are an occasional consequence of this system due to software limitations, ambient noise, and hardware issues. Any formal questions or concerns about the content, text, or information contained within the body of this dictation should be directly addressed to the provider for clarification. Supervising Physician Co-Signing Physician Notes Attending attestation: Case reviewed with the advanced practitioner. I have personally performed a history and physical examination on the patient. I have reviewed the advanced practitioner's documentation on the date of service referenced in note, and I agree with, and take responsibility for the plan of care. Subjective: Feeling well at present. Sinus rhythm in the 50s to 60s noted on telemetry. Exam: Pulmonary: Mild inspiratory wheezing in the mid and apical lung sheikh Data: EKG performed 09/03/2023 at 11:38 AM: Sinus bradycardia 55 bpm, first-degree AV block, ID interval 200 ms, left ventricular hypertrophy by voltage criteria. Transthoracic echocardiogram performed 09/03/2023 and interpreted independently: Left ventricular myocardial thickness is normal. LVEF 60-65% with no regional wall motion abnormalities Grade I diastolic dysfunction Mild aortic valve sclerosis without stenosis Impression/ Plan: Admit to telemetry. Continue monitoring. I spent a total of 20 minutes coordinating, documenting, and providing care for this patient excluding time spent in the performance of separately billed services or time spent by another provider. Laurent Azul, History of Present Illness Reason for Consultation: Syncope Requesting Physician: Dr. Reardon Attending Physician: Dr. Azul History of Present Illness Patient is an 82 year old male who presented to [facility] after a syncopal event this morning at the local [facility]. Patient reports he was in normal state of health. Recently traveled back from [place] where he spent the last four months. He walked and swam for exercise during this time. This was his first time back at the [facility] this morning. He had just finished walking and then started to lift weights. He was getting tired so he sat down on a weight bench to rest. He denied other symptoms of chest pain, SOB, palpitations or dizziness. The next thing he recalls was being on the floor. Apparently bystander saw him falling and helped lower him to the floor. It is uncertain how long he was unconscious. No seizure like activity reported. No bowel or bladder incontinence. Upon awakening apparently he was mildly confused but quickly became re-oriented. EMS was summoned and brought to ER for evaluation. Upon arrival, EKG demonstrated sinus bradycardia in the 50's, without acute changes. HS troponin unremarkable. BUN elevated but consistent with his history and mild CKD. He admits to eating breakfast before going to the gym but did not drink alot of water. He also did not drink any water during exercise. Patient denies cardiac history including CAD, [place], CHF, arrhythmia, or valvular disease. He reports he had 2 other syncopal events in the last 9 months. He was outside in the heat for the first one and they thought it was related to dehydration. The second episode he "slumped" over in the chair witnessed by , but awakened quickly. No incontinence for these episodes and he did not seek medical attention with either episode. Several years ago patient did have possible TIA. Head CT was unremarkable. He underwent ZIO monitor without afib. Average HR in the 60's. At time of consult, patient resting in bed feeling well. Denies dizziness or lightheadedness. No syncope. No chest pain or dyspnea. BP borderline high. Typically well controlled Telem with resting HR in the low 50's. Allergies Allergy/AdvReac Type Severity Reaction Status Date / Time No Known Allergies Allergy Unverified 03/28/21 12:15 Home Medications Medication Instructions Recorded Confirmed Type alfuzosin 10 mg tablet,extended 10 mg PO DAILY 03/28/21 09/03/23 History release 24 hr cholecalciferol (vitamin D3) 25 25 mcg PO DAILY 03/28/21 09/03/23 History mcg (1,000 unit) tablet (Vitamin D3) finasteride 5 mg tablet 5 mg PO DAILY 03/28/21 09/03/23 History aspirin 325 mg tablet 325 mg PO QPM 07/11/21 09/03/23 History atorvastatin 40 mg tablet 40 mg PO DAILY 07/11/21 09/03/23 History albuterol sulfate 90 mcg/actuation 2 puff inhalation QID PRN 09/03/23 09/03/23 History aerosol inhaler (Ventolin HFA) Shortness Of Breath Or Wheezing levocetirizine 5 mg tablet 5 mg PO HS 09/03/23 09/03/23 History Patient History Medical History (Updated 09/03/23 @ 18:13 by Olu Flowers MD) Asthma CKD (chronic kidney disease), stage III Brain TIA High cholesterol Surgical History Status post ORIF of fracture of ankle (~07/2021) Family History Other Colorectal cancer Social History Smoking Status: Never smoker Hx Alcohol Use: No Hx Substance Use: No Preferred Language: Uruguayan Communication Ability: Effective Parts Identification Technician Required: No Beliefs That Will Affect Care: None Current Living Situation: Spouse Feels Safe at Home: Yes Assistive Devices: Walker Review of Systems Review of Systems: All systems reviewed & are unremarkable except as noted in HPI & below Physical Exam Constitutional: WD/WN, vitals as above well nourished; no acute distress Neck: trachea midline, no thyromegaly Respiratory: normal respiratory effort Auscultation: lungs clear to auscultation bilaterally Cardiovascular: Rate/Rhythm: regular rhythm and + bradycardic Heart Sounds: normal S1 and normal S2; no murmur Vessels: no JVD Extremities: no edema Gastrointestinal (Abdomen): normal bowel sounds, soft, nontender, no hepatosplenomegaly Musculoskeletal: no cyanosis or clubbing, extremities motor strength 5/5 Neurologic: PERRL, EOMI, accommodation nl, no face palsy, no dysarthria Psychiatric: A+Ox3, euthymic affect Results & Data Vital Signs (Past 12 Hours) Vital Signs Temp Pulse Pulse Resp BP BP Pulse Ox 09/03/23 14:30 54 L 18 154/81 H 95 09/03/23 14:00 49 L 17 97 09/03/23 13:30 51 L 19 143/78 H 96 09/03/23 13:00 53 L 22 132/84 94 09/03/23 12:30 50 L 24 123/61 94 09/03/23 12:12 54 L 21 146/69 H 88 L 09/03/23 11:55 57 L 17 94 09/03/23 11:47 57 L 09/03/23 11:41 53 L 23 125/69 92 09/03/23 11:22 36.6 C 55 L 17 125/69 94 09/03/23 11:22 94 09/03/23 11:22 36.6 C 55 L 17 125/69 94 O2 Del Method 09/03/23 14:30 09/03/23 14:00 09/03/23 13:30 09/03/23 13:00 09/03/23 12:30 09/03/23 12:12 09/03/23 11:55 Room Air 09/03/23 11:47 09/03/23 11:41 09/03/23 11:22 Room Air 09/03/23 11:22 Room Air 09/03/23 11:22 Room Air Laboratory Results Cardiac Enzymes 09/03/23 Range/Units 11:47 Troponin I High Sens 5.1 (0-20) pg/ml Coagulation 09/03/23 Range/Units 11:47 PT 10.5 (9.0-12.0) Seconds APTT 26 (21-31) Seconds CBC 09/03/23 Range/Units 11:47 WBC 7.07 (4.8-10.8) K/ul RBC 4.53 L (4.70-6.10) M/uL Hgb 13.6 L (14.0-18.0) g/dl Hct 41.8 L (42.0-52.0) % Plt Count 205 (130-400) K/uL Neut # (Auto) 4.56 (1.40-6.50) K/uL Lymph # (Auto) 1.47 (1.20-3.40) K/uL Moody # (Auto) 0.67 H (0.11-0.59) K/uL Eos # (Auto) 0.29 (0.00-0.50) K/uL Baso # (Auto) 0.06 (0.00-0.20) K/uL Comprehensive Metabolic Panel 09/03/23 Range/Units 11:47 Sodium 138 (136-145) mmol/L Potassium 4.5 (3.5-5.1) mmol/L Chloride 106 (98-107) mmol/L Carbon Dioxide 25 (21-32) mmol/L BUN 31 H (6-23) mg/dl Creatinine 1.36 (0.6-1.4) mg/dl Glucose 105 H (70-99(Fasting)) mg/dl Calcium 9.2 (8.6-10.3) mg/dl Intake and Output 09/03/23 09/03/23 09/03/23 06:59 14:59 22:59 Other: Weight 86 kg Weight Measurement Method Built in [facility] Patient Weight 09/04/23 06:59 Weight 86 kg Diagnostic Findings Telemetry reviewed: Sinus bradycardia with HR's in the low 50's. No pauses. Chest xray report reviewed dated 09/03/23: IMPRESSION: No acute chest disease. IMPRESSION: 1. No acute intracranial findings. 2. No calvarial fractures. Prior outside data reviewed: Echo from Apr 2021: Interpretation Summary The primary indication after review was deemed appropriate and the examination was performed. Normal LV chamber size and wall thickness. Normal LV systolic function without regional wall motion abnormality. Calculated LV ejection Fraction = 54% (bi-plane method of discs). Grade I diastolic dysfunction. No significant valvular pathology. The interatrial septum is intact without interatrial shunt, atrial septal defect, or patent foramen ovale. There is no right to left interatrial shunt with Valsalva by saline contrast injection. ZIO monitor report reviewed from Apr 2021: CONCLUSIONS: Final Interpretation Patient had a min HR of 39 bpm, max HR of 158 bpm, and avg HR of 65 bpm. Predominant underlying rhythm was Sinus Rhythm. First Degree AV Block was present. 9 Supraventricular Tachycardia runs occurred, the run with the fastest interval lasting 4 beats with a max rate of 158 bpm, the longest lasting 7 beats with an avg rate of 105 bpm. Isolated SVEs were rare (<1.0%), SVE Couplets were rare (<1.0%), and SVE Triplets were rare (<1.0%). Isolated VEs were rare (<1.0%), VE Couplets were rare (<1.0%), and no VE Triplets were present. No patient markers or diary entries were submitted No atrial fibrillation flutter was observed Medications Administered Current Inpatient Medications Acetaminophen (Acetaminophen 325 Mg Tab) 650 mg PO Q4H PRN PRN Reason: Pain or Fever Stop: 10/03/23 14:18 Heparin Sodium (Porcine) (Heparin Sod 5,000 Unit/0.5 Ml Vial) 5,000 units SQ Q8 MERRY Stop: 10/03/23 14:18 Ondansetron HCl (Ondansetron Inj 2 Mg/Ml 2 Ml Vial) 4 mg IV Q6H PRN PRN Reason: Nausea Stop: 10/03/23 14:18 Polyethylene Glycol (Polyethylene (Miralax) 17 Gm Pack) 17 gm PO DAILY PRN PRN Reason: Constipation Stop: 10/03/23 14:18
[2023-09-03] MEDS: HEPARIN SOD 5,000 UNIT/0.5 ML VIAL SQ SCH (16:10)
[2023-09-03] MEDS ORDERED: ALBUTEROL HFA 8 GM INHALER INH PRN ×2 (16:56→20:13)
--- OUTSIDE RECORDS SUMMARY | 2023-09-03 18:50 | External Medical Summary ---
Author Name Unknown Address Unknown Organization [id number][place] [place] [address] [place] [address] Laboratory Report Ordering Provider Test Date Status KENIA SIMON 04/05/2023 16:37:15 Final Normal: <30 mg/g creatinine< br/>High: 30-300 mg/g creatinine
Very High: >300 mg/g creatinine
Nephrotic: >2200 mg/g creatinine Observation Date Value Abnormality Reference (Units ) Status Albumin, Urine 04/05/2023 16:37:15 1.88 (mg/dL) Final Creatinine, Urine 04/05/2023 16:37:15 188 (mg/dL) Final Albumin/Creatinine [Mass Ratio] in Urine 04/05/2023 16:37:15 10 <30 (mg/g Creat) Final [place] Location [facility] [place] [address] [place] [address]
--- OUTSIDE RECORDS SUMMARY | 2023-09-03 18:50 | External Medical Summary | Summary of Care ---
Author Name Unknown Organization [facility] Address [address] [place] [address] Phone [phone] Care Team Providers Care Master Control Engineer Name Role Phone Yolanda Grace MD Primary Care Provider [phone] Reason for Visit * Reason Comments Follow Up 6mo return Encounter Details Date Type Department Care Team (Latest Contact Info) Description 04/05/2023 4:20 PM EDT Office Visit General Internal Medicine [facility] [place] [address] [facility] [place] [address] Yolanda Grace MD [address] [place] [address] Hyperlipidemia with target LDL less than 100*; Male erectile disorder; Mild intermittent asthma without complication; Sensorineural hearing loss (SNHL) of both ears; 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; Stage 3a chronic kidney disease; Status post ORIF of fracture of ankle; Urge incontinence; Lung nodule; History of secondary hyperparathyroidism; Dupuytren's contracture of right hand; BPH with obstruction/lower urinary tract symptoms; Actinic keratosis Allergies Active Allergy Reactions Criticality Noted Date Comments Cat Dander 11/25/2013 Feathers,down, allergy symptoms, nasal congestion documented as of this encounter (statuses as of 04/19/2023) Medications Medication Sig Dispensed Refills Start Date End Date Status VITAMIN D 1000 UNITS PO CAPSIndications:Kat min D deficiency 1 capsule daily 30 Cap 11 04/08/2014 Active Aspirin 325 MG Oral Capsule Take by mouth. 0 Active Acetaminophen 500 MG Oral Tablet (Tylenol)Indications :Mid back pain on right side,Right-sided chest wall pain Take 2 Tablets by mouth every 8 hours as needed for Pain, Severe. 100 Tablet 0 08/19/2021 Active Ventolin HFA 108 (90 Base) MCG/ACT Inhalation Aerosol Solution Inhale by mouth 2 Puffs every 4 hours as needed for Cough, Shortness of Breath or Wheezing. 18 g 3 03/27/2022 Active Scopolamine 1 MG/3DAYS Transdermal Patch 72 Hour (Transderm Scop)Indications:Mot ion sickness, initial encounter Place 1 Patch topically on the skin every 3 days. 4 Patch 1 10/19/2022 Active Atorvastatin Calcium 40 MG Oral Tablet (Lipitor)Indications :Hyperlipidemia with target LDL less than 100 TAKE 1 TABLET BY MOUTH EVERY DAY IN THE MORNING 90 Tablet 3 12/20/2022 Active Alfuzosin HCl ER 10 MG Oral Tablet Extended Release 24 Hour (Uroxatral) TAKE 1 TABLET BY MOUTH EVERY DAY IN THE MORNING 90 Tablet 3 01/19/2023 Active Finasteride 5 MG Oral Tablet (Proscar) TAKE 1 TABLET BY MOUTH EVERY DAY IN THE MORNING 90 Tablet 3 01/19/2023 Active Levocetirizine Dihydrochloride 5 MG Oral TabletIndications:Al lergic rhinitis Take 1 Tablet by mouth every evening. 90 Tablet 3 04/04/2023 Active Azelastine HCl 0.1 % Nasal Solution (Astelin) Administer 1 [place] into nostril in the morning and 1 [place] before bedtime. 90 mL 3 04/05/2023 Active Azelastine HCl 0.1 % Nasal Solution (Astelin) Administer 1 [place] into nostril in the morning and 1 [place] before bedtime. 90 mL 3 07/03/2022 3 Discontinu ed(Refill) documented as of this encounter (statuses as of 04/19/2023) Active Problems Problem Noted Date Diagnosed Date Mild intermittent asthma without complication Status post ORIF of fracture of ankle 10/10/2021 Lung nodule 09/02/2021 Nocturia 05/26/2021 BPH with obstruction/lower urinary tract symptom s 02/21/2021 Stage 3a chronic kidney disease 04/12/2020 Overview: Per CKD protocol Sensorineural hearing loss (SNHL) of both ears 0 01/13/2020 Squamous cell carcinoma in s itu (SCCIS) of skin of helix of left ear 03/28/2019 History of secondary hyperparathyroidism 017 Overview: Due to CKD Dupuytren's contracture of right hand 12/18/2016 Male erectile disorder 04/05/2015 Hyperlipidemia with target LDL less than 100 Overview: ICD-10 update of inactive term Actinic keratosis 11/25/2013 documented as of this encounter (statuses as of 04/19/2023) Resolved Problems Problem Noted Date Diagnosed Date Resolved Date Kidney disease, chronic, sta ge III (GFR 30-59 ml/min) 12/18/2013 04/15/2020 Overview: Per CKD protocol documented as of this encounter (statuses as of 04/19/2023) Immunizations Name Administration Dates Next Due COVID-19 mRNA, LNP-s, No Pre serve, 2-Dose Series (Moderna) 01/20/2021,07/31/2020,06/26/2020 COVID-19, MRNA-LNP, 23-24, P F, 30 MCG/0.3 mL, 12 YRS AND ABOVE, IM (SavySwap-Comirnat) 03/30/2023 Covid-19, Mrna, Lnp-s, Pf, B ivalent, 30 Mcg, IM, 12 yrs and above (Pfizer) 03/27/2022 Pneumococcal Conjugate Vacc, 13 Valent (Prevnar) 09/07/2014 Pneumococcal Polysaccharide PPV23 (Pneumovax) 08/19/2013 SEASONAL INFLUENZA, PF, 6 M & Above, IM , (FLULAVAL or FLUZONE) 02/23/2020,02/21/2019,02/12/2018 Seasonal Influenza Intranasal 02/09/2014, 013 Seasonal Influenza, Quadriva lent Hd (Fluzone Hd) 03/27/2023,03/27/2022,02/21/2021 Seasonal Influenza, Quadriva lent, No Preserve, IM 02/09/2017,03/16/2016,03/15/2015 Seasonal Influenza, Split, I IV3, With Preserve, Inj 02/09/2014,03/21/2013 TDAP (age 10 and older)(Boostrix) 04/06/2014 Varicella Zoster Vaccine (Adult) 08/20/2003 Zoster Vaccine Recombinant (Shingrix) 03/25/2018 ,12/20/2017 documented as of this encounter Social History Tobacco Use Types Packs/Day Years Used Date Smoking Tobacco: Never Smokeless Tobacco: Never Alcohol Use Standard Drinks/Week Comments No 0 (1 standard drink = 0.6 oz pur e alcohol) PHQ-2 Answer Date Recorded PHQ Adult Total Score 0 10/19/2022 Hunger Vital Sign Answer Date Recorded Worried About Running Out of Food in the Last Ye ar Never true 01/13/2020 Ran Out of Food in the Last Year Never true 01/13/2020 Sex and Gender Information Value Date Recorded Sex Assigned at Male 01/09/2019 1:33 PM EDT Gender Identity Male 01/09/2019 1:33 PM EDT Sexual Orientation Straight 01/09/2019 1: 33 PM EDT Job Start Date Occupation Industry Not on file Not on file Not on file documented as of this encounter Last Filed Vital Signs Vital Sign Reading Time Taken Comments Blood Pressure 112/52 04/05/2023 4:11 PM EDT Pulse 60 04/05/2023 4:11 PM EDT Temperature 36.7 C (98 F) 04/05/2023 4:11 PM EDT Respiratory Rate - - Oxygen Saturation 96% 04/05/2023 4:11 PM EDT Inhaled Oxygen Concentration - - Weight 85.1 kg (187 lb 11.2 oz) 04/05/2023 4:11 PM EDT Height 185.4 cm (6' 1") 04/05/2023 4:11 PM EDT Body Mass Index 24.76 04/05/2023 4:11 PM EDT documented in this encounter Progress Notes * Yolanda Grace MD - 04/05/2023 4:19 PM EDT Images from the original note were not included. History of Present Illness Alexander Jackson is a 82 year old male that presents for Follow Up (6mo return) 82 year old with PMH significant for hyperlipidemia,borderline HTN With CKD, BPH and ED presents here for recheck. Acute concern :- - asked about renal diet - discussed Interimmedical history : seen by urologist Watching diet and exercise : yes Routine labs : Reviewed and stable Routine HM : uptodate Chronic medical problem: reviewed and stable Physical Exam Vitals: 04/05/23 1611 Temp: 36.7 C (98 F) Pulse: 60 SpO2: 96% BP: 112/52 BMI: 24.77 Physical Exam Constitutional: General: He is not in acute distress. Appearance: Normal appearance. He is normal weight. HENT: Head: Normocephalic. Right Ear: Tympanic membrane, ear canal and external ear normal. Left Ear: Tympanic membrane, ear canal and external ear normal. Mouth/Throat: Mouth: Mucous membranes are moist. Pharynx: No oropharyngeal exudate or posterior oropharyngeal erythema. Cardiovascular: Rate and Rhythm: Normal rate and regular rhythm. Pulses: Normal pulses. Heart sounds: Normal heart sounds. No murmur heard. Pulmonary: Effort: Pulmonary effort is normal. No respiratory distress. Breath sounds: Normal breath sounds. No wheezing. Abdominal: General: Bowel sounds are normal. Palpations: Abdomen is soft. Musculoskeletal: General: No swelling or tenderness. Normal range of motion. Cervical back: Normal range of motion. No rigidity or tenderness. Right lower leg: No edema. Left lower leg: No edema. Lymphadenopathy: Cervical: No cervical adenopathy. Skin: General: Skin is warm. Findings: No lesion. Neurological: General: No focal deficit present. Mental Status: He is alert. Mental status is at baseline. 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 Drink plenty of fluid ( 50-60 oz/day ) . Will follow closely in future. - COMPREHENSIVE METABOLIC PANEL; Future - CBC; Future - PHOSPHORUS; Future - ALBUMIN / CREATININE RATIO, URINE; Future - ALBUMIN / CREATININE RATIO, URINE Status post ORIF of fracture of ankle Urge incontinence Lung nodule History of secondary hyperparathyroidism Dupuytren's contracture of right hand BPH with obstruction/lower urinary tract symptoms Stable Actinic keratosis Wrap-Up Time: I spent a total of 30-39 minutes (exact time 34 mins) on the date of service in preparation, delivery, and documentation of the care provided to Alexander Jackson excluding any time spent in the performance of separately billed services. documented in this encounter Nursing Notes * Ritu Alanis LPN - 04/05/2023 4:11 PM EDT Chief Complaint Patient presents with Follow Up 6mo return documented in this encounter Plan of Treatment Upcoming Encounters Date Type Department Care Team (Late st Contact Info) Description 10/08/2023 1:40 PM EDT Office Visit General Internal Medicine [facility] [address] [facility] [place] [address] Yolanda Grace MD [address] [facility] [place] [address] 11/06/2023 12:50 PM EDT Office Visit Dermatology [facility] [address] [facility] [place] [address] Shannon Lin PA-C [address] [facility] [place] [address] 01/22/2024 9:45 AM EDT Office Visit Urology, [facility] [address] [facility] [place] [id number] Jordan Carbajal MD [address] [facility] [address] [place] [address] Scheduled Orders Name Type Priority Associated Diagnoses Orde r Schedule COMPREHENSIVE METABOLIC PANEL Lab Routine Hyperlipidemia with target LDL less than 100 Stage 3a chronic kidney disease Expected: 10/04/2023, Expires: 04/05/2024 LIPID PANEL WITH DIRECT LDL IF TG IS HIGH Lab Routine Hyperlipidemia with target LDL less than 100 Expected: 10/04/2023, Expires: 04/05/2024 CBC Lab Routine Stage 3a chronic kidney disease Expected: 10/04/2023, Expires: 04/04/2024 PHOSPHORUS Lab Routine Stage 3a chronic kidney disease Expected: 10/04/2023, Expires: 04/04/2024 Health Maintenance Due Date Last Done Comments CKD PHOS USE SMARTSET 12189 04/04/202306/2021, 08/13/2020, 07/14/2019, Additional history exists GFR 09/26/2023 03/27/2023, 10/2022, 04/04/2022, Additional history exists Depression Screening 10/20/2023 10/19/2022 CKD HGB USE SMARTSET 90864 03/27/202403/27, 04/04/2022, 04/04/2022, Additional history exists Albumin/Creatinine Ratio 04/05/2024 023, 04/04/2022, 01/09/2019, Additional history exists DTaP,Tdap,and Td Vaccines (2 - Td or Tdap) 04/06/2024 04/06/2014 COLONOSCOPY-EVERY 3 YRS AGES 18-100 08/16/2025 08/16/2022, 08/16/2022, 10/21/2018, Additional history exists Pneumococcal Vaccine: 65+ Years Completed 09/07/2014, 08/19/2013 Zoster Vaccines Completed 03/25/2018, 12/02, 08/20/2003 Influenza Vaccine (FLU shot) Completed , 03/27/2022, 02/21/2021, Additional history exists COVID-19 Vaccine Completed 03/30/2023, , 01/20/2021, Additional history exists GARDASIL-HPV IMMUNIZATION SERIES Aged Out No longer eligible based on patient's age to complete this topic Hepatitis B Aged Out No longer eligi ble based on patient's age to complete this topic MENINGOCOCCAL (MENACTRA/MENVEO) Aged Out No longer eligible based on patient's age to complete this topic documented as of this encounter Medical Devices Not on filedocumented as of this encounter Procedures Procedure Name Priority Date/Time Associated Diagnosis Comments ALBUMIN / CREATININE RATIO, URINE Routine 04/05/2023 4:37 PM EDT Stage 3a chronic kidney disease documented in this encounter Results * ALBUMIN / CREATININE RATIO, URINE (04/05/2023 4:37 PM EDT) Albumin, Random Urine 1.88 mg/dL 04/06/2023 12:01 AM EDT [facility] Creatinine, Random Urine 188 mg/dL 04/06/2023 12:01 AM EDT [facility] Albumin / Creatinine Ratio, Urine 10 <30 mg/g Creat 04/06/2023 12:01 AM EDT [facility] Urine Urine specimen obtained by clean catch procedure / Unknown Non-blood Collection / Unknown 04/05/2023 4:37 PM EDT 04/05/2023 4:42 PM EDT Narrative [facility] - 04/06/2023 12:01 AM EDT Normal: <30 mg/g creatinine High: 30-300 mg/g creatinine Very High: >300 mg/g creatinine Nephrotic: >2200 mg/g creatinine Yolanda Grace MD LAB URINE ORDERABLES [facility] [address] [place] [address] documented in this encounter Visit Diagnoses Diagnosis Hyperlipidemia with target LDL less than 100- Primary Other and unspecified hyperlipidemia Male erectile disorder Impotence of organic origin Mild intermittent asthma without complication Unspecified asthma Sensorineural hearing loss (SNHL) of both ears 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 Stage 3a chronic kidney disease Status post ORIF of fracture of ankle Urge incontinence Lung nodule Solitary pulmonary nodule History of secondary hyperparathyroidism Personal history of other endocrine, metabolic, and immunity disorders Dupuytren's contracture of right hand 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
--- OUTSIDE RECORDS SUMMARY | 2023-09-03 18:50 | External Medical Summary | Summary of Care ---
Author Name Unknown Organization [facility] Address [address] [place] [address] Phone [phone] Care Team Providers Care Asbestos Cloth Inspector Name Role Phone Yolanda Grace MD Primary Care Provider [phone] Encounter Details Date Type Department Care Team (Late st Contact Info) Description 04/19/2023 Telephone Urology [facility] [address] [place] [address] [place] [address] Jordan Carbajal MD [address] [place] [address] [place] [address] Allergies Active Allergy Reactions Criticality Noted Date Comments Cat Dander 11/25/2013 Feathers,down, allergy symptoms, nasal congestion documented as of this encounter (statuses as of 04/19/2023) Medications Medication Sig Dispensed Refills Start Date End Date Status VITAMIN D 1000 UNITS PO CAPSIndications:Vitam in D deficiency 1 capsule daily 30 Cap 11 04/08/2014 Active Aspirin 325 MG Oral Capsule Take by mouth. 0 Active Acetaminophen 500 MG Oral Tablet (Tylenol)Indications: Mid back pain on right side,Right-sided chest wall [...] 1 MG/3DAYS Transdermal Patch 72 Hour (Transderm Scop)Indications:Ranjeet on sickness, initial encounter Place 1 Patch topically on the skin every 3 days. 4 Patch 1 10/19/2022 Active Atorvastatin Calcium 40 MG Oral Tablet (Lipitor)Indications: Hyperlipidemia with target LDL less than 100 TAKE [...] 01/19/2023 Active Levocetirizine Dihydrochloride 5 MG Oral TabletIndications:All ergic rhinitis Take 1 Tablet by mouth every evening. 90 Tablet 3 04/04/2023 Active Azelastine HCl 0.1 % Nasal Solution (Astelin) Administer 1 [place] into nostril in the morning and 1 [place] before bedtime. 90 mL 3 04/05/2023 Active documented as of this encounter (statuses as [...] MCG/0.3 mL, 12 YRS AND ABOVE, IM (PFIZER-Comirnaty) 03/30/2023 Covid-19, Mrna, Lnp-s, Pf, B ivalent, [...] on file documented as of this encounter Plan of Treatment Upcoming Encounters Date Type Department Care Team (Late st Contact Info) Description 10/08/2023 1:40 PM EDT Office Visit General Internal Medicine [facility] [address] [facility] [place] [address] Yolanda Grace MD [address] [facility] [place] [address] 11/06/2023 12:50 PM EDT Office Visit Dermatology [facility] [address] [facility] [address] Shannon Lin PA-Drew [address] [facility] [place] [address] 01/22/2024 9:45 AM EDT Office Visit Urology, [facility] [address] [facility] [place] [address] Jordan Carbajal MD [address] [place] [address] [place] [address] Health Maintenance Due Date Last Done Comments CKD PHOS USE SMARTSET 43212 04/04/2023 110 06/2021, 08/13/2020, 07/14/2019, Additional history exists GFR 09/26/2023 03/27/2023, 050 10/2022, 04/04/2022, Additional history exists Depression Screening 10/20/2023 10/19/2022 CKD HGB USE SMARTSET 71679 03/27/202403/27, 04/04/2022, 04/04/2022, Additional history exists Albumin/Creatinine Ratio 04/05/202404/05/2 023, 04/04/2022, 01/09/2019, Additional history exists DTaP,Tdap,and [...] Not on filedocumented as of this encounter Care Teams Asbestos Cloth Inspector Relationship Specialty Start Date End Date Yolanda Grace MD [address] [place] [address] PCP - General Internal Medicine 08/19/13 documented as of this encounter
--- OUTSIDE RECORDS SUMMARY | 2023-09-03 18:51 | External Medical Summary ---
Author Name Unknown Address Unknown Organization [id number]:[facility] - [address] [facility] [address] Laboratory Report Ordering Provider Test Date Status STEPHANIE JOHNSON 03/27/2023 07:26:30 Final Observation Date Value Abnormality Reference (Units ) Status MYCODE SPECIMEN-SST 03/27/2023 07:26:30 Freezing of extracted DNA, whole blood and/or serum. Final Performing Location [facility] [address] [facility] [address]
--- OUTSIDE RECORDS SUMMARY | 2023-09-03 18:51 | External Medical Summary | Summary of Care ---
Author Name Unknown Organization [facility] Address [address] [place] [address] Phone [phone] Care Team Providers Care Librarian Helper Name Role Phone Yolanda Grace MD Primary Care Provider [phone] Reason for Visit * Reason Onset Date Comments Medication Administration 03/27/2023 Flu an d/or Pneumo Inj Encounter Details Date Type Department Care Team (Late st Contact Info) Description 03/27/2023 3:40 PM EDT Immunization Ancillary [facility] [address] [place] [address] [facility] [address] [place] [address] Need for prophylactic vaccination and inoculation against influenza* Allergies Active Allergy Reactions Criticality Noted Date Comments Cat Dander 11/25/2013 Feathers,down, allergy symptoms, nasal congestion documented as of this encounter (statuses as of 03/27/2023) Medications Medication Sig Dispensed Refills Start Date [...] or Wheezing. 18 g 3 03/27/2022 Active Levocetirizine Dihydrochloride 5 MG Oral Tablet Take by mouth 1 Tablet before bedtime. 90 Tablet 3 03/27/2022 Active Azelastine HCl 0.1 % Nasal Solution (Astelin) Administer 1 [place] into nostril in the morning and 1 [place] before bedtime. 90 mL 3 07/03/2022 Active Additional Information Patient not taking.Reported on 01/23/2023 Scopolamine 1 MG/3DAYS Transdermal Patch 72 Hour [...] THE MORNING 90 Tablet 3 01/19/2023 Active documented as of this encounter (statuses as of 03/27/2023) Active Problems Problem Noted Date Diagnosed Date Mild intermittent asthma without complication Status post ORIF of fracture of ankle 10/10/2021 Lung nodule 09/02/2021 Urge incontinence 05/26/2021 Nocturia 05/26/2021 BPH with obstruction/lower urinary tract [...] as of this encounter (statuses as of 03/27/2023) Resolved Problems Problem Noted Date Diagnosed Date Resolved Date Kidney disease, chronic, sta ge III (GFR 30-59 ml/min) 12/18/2013 04/15/2020 Overview: Per CKD protocol documented as of this encounter (statuses as of 03/27/2023) Immunizations Name Administration Dates Next Due COVID-19 mRNA, LNP-s, No Pre serve, 2-Dose Series (Moderna) 01/20/2021,07/31/2020,06/26/2020 Covid-19, Mrna, Lnp-s, Pf, B ivalent, 30 [...] Recorded PHQ Adult Total Score 0 10/19/2022 Sex and Gender Information Value Date Recorded Sex Assigned at Male 01/09/2019 1:33 PM EDT Gender Identity Male 01/09/2019 1:33 PM EDT Sexual Orientation Straight 01/09/2019 1: 33 PM EDT Job Start Date Occupation Industry Not on file Not on file Not on file documented as of this encounter Patient Instructions * Patient Instructions* Najma Olson LPN - 03/27/2023 3:38 PM EDT ~~PATIENT INSTRUCTIONS FOR FLU SHOT~~ Possible side effects of influenza vaccine, (flu shot), are usually mild and include: 1. Soreness or redness at injection site 2. Low grade fever 3. Body aches You may use Tylenol/Acetaminophen as needed for these symptoms. LET YOUR DOCTOR KNOW IMMEDIATELY IF YOU HAVE DIFFICULTY BREATHING OR SWALLOWING, EXPERIENCE ITCHINGOF FEET OR HANDS, HAVE SWELLING OF EYES, FACE OR INSIDE OF NOSE. documented in this encounter Progress Notes * Najma Olson LPN - 03/27/2023 3:37 PM EDT PRE - ADMINISTRATION DOCUMENTATION Are you experiencing any cold symptoms or fever? No Have you had Guillain-G[place]ada Syndrome (an illness that causes paralysis) within the last 6 weeks? No Have you had the flu shot in the past? YES Have you ever had a reaction to the flu shot? No Najma Olson LPN, 03/27/2023 3:37 PM Immunization Administration Documentation Time Out Procedure Performed: Yes Patient Identified (Ask Name/Date of ): Yes Does the patient have a fever greater than 101 degrees today? No Patient allergic to latex? No VFC Stock: No Immunization(s) verified: Yes, Immunization Name: Flu, VIS Sheet(s) given: Yes Verified Side and Site: Yes Verified Shot(s) with Parent(s)/Patient: Yes documented in this encounter Plan of Treatment Upcoming Encounters Date Type Department Care Team (Late st Contact Info) Description 04/05/2023 4:20 PM EDT Office Visit General Internal Medicine [facility] [place] [address] [place] [address] Yolanda Grace MD 200 [facility] [place] [address] 11/06/2023 12:50 PM EDT Office Visit Dermatology [facility] 200 [facility] [place] [address] Shannon Lin PA-C [address] [facility] [place] [address] 01/25/2024 9:45 AM EDT Office Visit Urology, [facility] [address] [place] [address] Jordan Carbajal MD [address] [place] [address] [place] [address] Health Maintenance Due Date Last Done Comments COVID-19 Vaccine ( season) 2023 03/27/2022, 01/20/2021, 07/31/2020, Additional history exists Albumin/Creatinine Ratio 04/04/2023 022, 01/09/2019, 12/17/2017, Additional history exists CKD PHOS USE SMARTSET 25270 04/04/2023 110 06/2021, 08/13/2020, 07/14/2019, Additional history exists GFR 09/26/2023 03/27/2023, 05/0 10/2022, 04/04/2022, Additional history exists Depression Screening 10/20/2023 10/19/2022 CKD HGB USE SMARTSET 91732 03/27/202403/27, 04/04/2022, 04/04/2022, Additional history exists DTaP,Tdap,and Td Vaccines (2 - Td or Tdap) 04/06/2024 04/06/2014 COLONOSCOPY-EVERY 3 YRS AGES 18-100 08/16/2025 08/16/2022, 08/16/2022, 10/21/2018, Additional history exists Pneumococcal Vaccine: 65+ Years Completed 09/07/2014, 08/19/2013 Zoster Vaccines Completed 03/25/2018, 12/02, 08/20/2003 Influenza Vaccine (FLU shot) Completed , 03/27/2022, 02/21/2021, Additional history exists GARDASIL-HPV IMMUNIZATION SERIES Aged [...] Not on filedocumented as of this encounter Visit Diagnoses Diagnosis Need for prophylactic vaccination and inoculation against influenza- Primary documented in this encounter Care Teams Librarian Helper Relationship Specialty Start Date End Date Yolanda Grace MD 200 [place] [address] PCP - General Internal Medicine 08/19/13 documented as of this encounter
--- OUTSIDE RECORDS SUMMARY | 2023-09-03 18:51 | External Medical Summary ---
Author Name Unknown Address Unknown Organization [id number][place] [place] [address] [facility] [address] Laboratory Report Ordering Provider Test Date Status STEPHANIE JOHNSON 03/27/2023 07:26:30 Final Observation Date Value Abnormality Reference (Units ) Status MYCODE SPECIMEN-SST 03/27/2023 07:26:30 Freezing of extracted DNA, whole blood and/or serum. Final Performing Location [facility] [place] [address] [facility] [address]
--- OUTSIDE RECORDS SUMMARY | 2023-09-03 18:51 | External Medical Summary ---
Author Name Unknown Address Unknown Organization [id number]:[facility] [place] [address] [facility] [address] Laboratory Report Ordering Provider Test Date Status LUC SIMONALI 03/27/2023 07:26:30 Final Observation Date Value Abnormality Reference (Units ) Status Triglyceride 03/27/2023 07:26:30 92 <=174 ( mg/dL) Final Triglyceride Reference Range s (mg/dL):
<150 Acceptable
150-174 Borderline high
175-499 High
>=500 Very high Cholesterol 03/27/2023 07:26:30 181 <200 (mg /dL) Final Total Cholesterol Reference Ranges (mg/dL):
<200 Desirable
200-239 Borderline high
>=240 High HDL 03/27/2023 07:26:30 69 >39 (mg/dL ) Final HDL Cholesterol Reference Ra nges (mg/dL):
>=60 High (Desirable)
<50 Low (Undesirable) For Females
<40 Low (Undesirable) For Males NON-HDL CHOLESTEROL 03/27/2023 07:26:30 112 <=159 (mg/dL) Final Non-HDL Cholesterol Referenc e Range (mg/dL):
<100 Target level for high risk ASCVD patient
<130 Optimal for general population
130-159 Near optimal for general population
160-189 Borderline High
190-219 High
>=220 Very High LDL, (calculated) 03/27/2023 07:26:30 94 <= 129 (mg/dL) Final LDL Cholesterol Reference Ra nges (mg/dL):
<70 Target level for high risk ASCVD patient
<100 Optimal for general population
100-129 Near optimal for general population
130-159 Borderline high
160-189 High
>=190 Very high Performing Location [facility] [place] [address] [place] [address]
--- OUTSIDE RECORDS SUMMARY | 2023-09-03 18:51 | External Medical Summary | Summary of Care ---
Author Name Unknown Organization [facility] Address [address] [place] [address] Phone [phone] Care Team Providers Care Crew Manager Name Role Phone Yolanda Grace MD Primary Care Provider [phone] Reason for Visit * Reason Onset Date Comments Medication Refill 04/04/2023 Encounter Details Date Type Department Care Team (Late st Contact Info) Description 04/04/2023 Refill Pulmonary Medicine Yoni Otero [address] [place] [id number] Rj Green MD [address] [place] [address] Allergic rhinitis* Allergies Active Allergy Reactions Criticality Noted Date Comments Cat Dander 11/25/2013 Feathers,down, allergy symptoms, nasal congestion documented as of this encounter (statuses as of 04/04/2023) Medications Medication Sig Dispensed Refills Start Date [...] or Wheezing. 18 g 3 03/27/2022 Active Azelastine HCl 0.1 % Nasal Solution (Astelin) Administer 1 [place] into nostril in the morning and 1 [place] before bedtime. 90 mL 3 07/03/2022 Active [...] every evening. 90 Tablet 3 04/04/2023 Active Levocetirizine Dihydrochloride 5 MG Oral Tablet Take by mouth 1 Tablet before bedtime. 90 Tablet 3 03/27/2022 04/04/20 23 Discontinu ed(Refill) documented as of this encounter (statuses as of 04/04/2023) Active Problems Problem Noted Date Diagnosed Date [...] as of this encounter (statuses as of 04/04/2023) Resolved Problems Problem Noted Date Diagnosed Date Resolved Date Kidney disease, chronic, sta ge III (GFR 30-59 ml/min) 12/18/2013 04/15/2020 Overview: Per CKD protocol documented as of this encounter (statuses as of 04/04/2023) Immunizations Name Administration Dates Next Due COVID-19 mRNA, LNP-s, No Pre serve, 2-Dose Series (Moderna) 01/20/2021,07/31/2020,06/26/2020 Covid-19, Mrna, Lnp-s, Pf, B ivalent, 30 Mcg, IM, 12 yrs and above (Invenra) 03/27/2022 Pneumococcal Conjugate Vacc, 13 Valent (Prevnar) [...] on file documented as of this encounter Miscellaneous Notes * Telephone Encounter - Rj Green MD - 04/04/2023 5:05 PM EDTSigned Prescriptions: Disp Refills Levocetirizine Dihydrochloride 5 MG Oral T*90 Tab*3 Sig: Take 1 Tablet by mouth every evening.Authorizing Provider: RJ GREEN documented in this encounter Plan of Treatment Upcoming Encounters Date Type Department Care Team (Late st Contact Info) Description 04/05/2023 4:20 PM EDT Office Visit General Internal Medicine [facility] [address] [place] [address] Yolanda Grace MD [address] [place] [address] 11/06/2023 12:50 PM EDT Office Visit Dermatology [facility] [address] [place] [address] Shannon Lin PA-C [address] [facility] [place] [address] 01/25/2024 9:45 AM EDT Office Visit Urology, [facility] 132 [facility] [place] [id number] Jordan Carbajal MD [address] [place] [address] [place] [address] Health Maintenance Due Date Last Done Comments COVID-19 Vaccine (2022- season) 2023 03/27/2022, 01/20/2021, 07/31/2020, Additional history exists Albumin/Creatinine Ratio 04/04/2023 022, 01/09/2019, 12/17/2017, Additional history exists CKD PHOS USE SMARTSET 54202 04/04/2023 110 06/2021, 08/13/2020, 07/14/2019, Additional history exists GFR 09/26/2023 03/27/2023, 050 10/2022, 04/04/2022, Additional history exists Depression Screening 10/20/2023 10/19/2022 CKD HGB USE SMARTSET 43561 03/27/202403/27, 04/04/2022, 04/04/2022, Additional history exists DTaP,Tdap,and [...] as of this encounter Visit Diagnoses Diagnosis Allergic rhinitis- Primary Allergic rhinitis, cause unspecified documented in this encounter Care Teams Crew Manager Relationship Specialty Start Date End Date Yolanda Grace MD 200 [place] [address] PCP - General Internal Medicine 08/19/13 documented as of this encounter
--- OUTSIDE RECORDS SUMMARY | 2023-09-03 18:51 | External Medical Summary | Summary of Care ---
Author Name Unknown Organization [facility] Address [address] [place] [address] Phone [phone] Care Team Providers Care Evening Or Night Nurse Supervisor Name Role Phone Yolanda Grace MD Primary Care Provider [phone] Encounter Details Date Type Department Care Team (Late st Contact Info) Description 04/02/2023 Orders Only Outcomes Research Department [address] [place], [place] [id number] Richa Cabrera CHRA [employer] Other*[id number] Allergies Active Allergy Reactions Criticality Noted Date Comments Cat Dander 11/25/2013 Feathers,down, allergy symptoms, nasal congestion documented as of this encounter (statuses as of 04/02/2023) Medications Medication Sig Dispensed Refills Start Date [...] 0.1 % Nasal Solution (Astelin) Administer 1 [place] into nostril in the morning and 1 [place] before bedtime. 90 mL 3 07/03/2022 Active [...] as of this encounter (statuses as of 04/02/2023) Active Problems Problem Noted Date Diagnosed Date [...] as of this encounter (statuses as of 04/02/2023) Resolved Problems Problem Noted Date Diagnosed Date Resolved Date Kidney disease, chronic, sta ge III (GFR 30-59 ml/min) 12/18/2013 04/15/2020 Overview: Per CKD protocol documented as of this encounter (statuses as of 04/02/2023) Immunizations Name Administration Dates Next Due COVID-19 [...] PM EDT Office Visit General Internal Medicine [facility] 200 [facility] [place] [address] Yolanda Grace MD 200 [facility] [place] [address] 11/06/2023 12:50 PM EDT Office Visit Dermatology [facility] [address] [facility] [place] [address] Shannon Lin PA-C 6[address] [facility] [place] [address] 01/25/2024 9:45 AM EDT Office Visit Urology, [facility] 132 [facility] [place] [address] Jordan Carbajal MD [address] [place] [address] [place] [address] Scheduled Orders Name Type Priority Associated Diagnoses Orde r Schedule MYCODE SUBSEQUENT ADULT Lab Routine [employer] Other*[id number] Every 6 Months for 2 Occurrences starting 04/02/2023 until 04/21/2024 Health Maintenance Due Date Last Done Comments COVID-19 Vaccine ( season) 2023 03/27/2022, 01/20/2021, 07/31/2020, Additional history exists Albumin/Creatinine Ratio 04/04/202304/04/2 022, 01/09/2019, 12/17/2017, Additional history exists CKD PHOS USE SMARTSET 64204 04/04/2023 1106/2021, 08/13/2020, 07/14/2019, Additional history exists GFR 09/26/2023 03/27/2023, 0510/2022, 04/04/2022, Additional history exists Depression Screening 10/20/2023 10/19/2022 CKD HGB USE SMARTSET 93270 03/27/202403/27, 04/04/2022, 04/04/2022, Additional history exists DTaP,Tdap,and [...] as of this encounter Visit Diagnoses Diagnosis [employer] Other*[id number] documented in this encounter Care Teams Evening Or Night Nurse Supervisor Relationship Specialty Start Date End Date Yolanda Grace MD 200 [facility] [place] [address] PCP - General Internal Medicine 08/19/13 documented as of this encounter
--- OUTSIDE RECORDS SUMMARY | 2023-09-03 18:51 | External Medical Summary | Summary of Care ---
Author Name Unknown Organization [facility] Address [address] [place] [address] Phone [phone] Care Team Providers Care Industrial Automation Engineer Name Role Phone Yolanda Grace MD Primary Care Provider [phone] Reason for Visit * Reason Comments Outpatient Testing Encounter Details Date Type Department Care Team (Late st Contact Info) Description 03/27/2023 7:20 AM EDT Laboratory Laboratory [facility] [address] [place] [address] [place], Lab Scenery [address] [place] [address] Stage 3a chronic kidney disease; Hyperlipidemia with target LDL less than 100; [employer] Other*[id number] Allergies Active Allergy Reactions Criticality Noted Date [...] 0.1 % Nasal Solution (Astelin) Administer 1 [place] into nostril in the morning and 1 [place] before bedtime. 90 mL 3 07/03/2022 Active [...] Seasonal Influenza, Quadriva lent Hd (Fluzone Hd) 03/27/2022,02/21/2021 Seasonal Influenza, Quadriva lent, No Preserve, IM [...] Description 03/27/2023 3:40 PM EDT Immunization Ancillary [facility] 132 [facility] [place] [address] [facility] 132 [facility] [place] [address] 04/05/2023 4:20 PM EDT Office Visit General Internal Medicine [facility] 200 [facility] [place] [address] Yolanda Grace MD 200 [facility] [place] [address] 11/06/2023 12:50 PM EDT Office Visit Dermatology [facility] 200 [facility] [place] [address] Shannon [facility]-C [facility] [facility] [address] 01/25/2024 9:45 AM EDT Office Visit Urology, [facility] 132 [facility] [place] [address] Jordan Carbajal MD 27 [facility] [address] [place] [address] Pending Results Name Type Priority Associated Diagnoses Date /Time COMPREHENSIVE METABOLIC PANEL Lab Routine Stage 3a chronic kidney disease Hyperlipidemia with target LDL less than 100 03/27/2023 7:26 AM EDT LIPID PANEL WITH DIRECT LDL IF TG IS HIGH Lab Routine Hyperlipidemia with target LDL less than 100 03/27/2023 7:26 AM EDT MYCODE INITIAL ADULT Lab Routine [facility] Other*[id number] 03/27/2023 7:26 AM EDT MYCODE INITIAL ADULT-PINK Lab Routine [employer] Other*[id number] 03/27/2023 7:26 AM EDT MYCODE SST1 Lab Routine [facility] Other*[id number] 03/27/2023 7:26 AM EDT MYCODE SST2 Lab Routine [employer] Other*[id number] 03/27/2023 7:26 AM EDT Health Maintenance Due Date Last Done Comments COVID-19 Vaccine ( season) 2023 03/27/2022, 01/20/2021, 07/31/2020, Additional history exists Influenza Vaccine (FLU shot) (#1) 2023 03/27/2022, 02/21/2021, 02/23/2020, Additional history exists Albumin/Creatinine Ratio 04/04/2023 022, 01/09/2019, 12/17/2017, Additional history exists CKD HGB USE SMARTSET 96931 04/04/202303/27, 04/04/2022, 04/04/2022, Additional history exists CKD PHOS USE SMARTSET 50821 04/04/2023 1106/2021, 08/13/2020, 07/14/2019, Additional history exists GFR 04/08/2023 10/06/2022, 06/2021, 09/16/2021, Additional history exists Depression Screening 10/20/2023 10/19/2022 DTaP,Tdap,and Td Vaccines (2 - Td or Tdap) 04/06/2024 04/06/2014 COLONOSCOPY-EVERY 3 YRS AGES 18-100 08/16/2025 08/16/2022, 08/16/2022, 10/21/2018, Additional history exists Pneumococcal Vaccine: 65+ Years Completed 09/07/2014, 08/19/2013 Zoster Vaccines Completed 03/25/2018, 12/02, 08/20/2003 GARDASIL-HPV IMMUNIZATION SERIES Aged Out No longer [...] Procedure Name Priority Date/Time Associated Diagnosis Comments CBC Routine 03/27/2023 7:26 AM EDT Stage 3a chronic kidney disease documented in this encounter Results * CBC (03/27/2023 7:26 AM EDT) WBC 7.40 4.00 - 10.80 K/uL 03/27/2023 7:39 AM EDT [facility] 56 RBC 4.74 4.50 - 5.25 M/uL 03/27/2023 7:39 AM EDT [facility] 56 HGB 14.3 14.0 - 16.8 g/dL 03/27/2023 7:39 AM EDT [facility] 56 HCT 44.0 40.0 - 48.4 % 03/27/2023 7:39 AM EDT [facility] 56 MCV 92.8 82.0 - 99.5 fL 03/27/2023 7:39 AM EDT [facility] 56 MCH 30.2 27.0 - 34.0 pg 03/27/2023 7:39 AM EDT [facility] 56 MCHC 32.5 32.0 - 36.0 g/dL 03/27/2023 7:39 AM EDT [facility] 56 RDW 14.0 11.5 - 15.5 % 03/27/2023 7:39 AM EDT [facility] 56- PLT 221 140 - 400 K/uL 03/27/2023 7:39 AM EDT [facility] 56 MPV 10.4 6.6 - 11.1 fL 03/27/2023 7:39 AM EDT [facility] 56 Blood Venous blood specimen / Unknown Venipuncture / Unknown 03/27/2023 7:26 AM EDT 03/27/2023 7:27 AM EDT Yolanda Grace MD LAB BLOOD ORDERABLES [facility] [address] [place] [address] documented in this encounter Visit Diagnoses Diagnosis Stage 3a chronic kidney disease Hyperlipidemia with target LDL less than 100 Other and unspecified hyperlipidemia [employer] [facility] Other*[id number] documented in this encounter Care Teams Industrial Automation Engineer Relationship Specialty Start Date End Date Yolanda Grace MD 200 [facility] [place] [address] PCP - General Internal Medicine 08/19/13 documented as of this encounter
--- OUTSIDE RECORDS SUMMARY | 2023-09-03 18:51 | External Medical Summary ---
Author Name Unknown Address Unknown Organization K09:[facility]AT[facility] - [address] [place] [address] Laboratory Report Ordering Provider Test Date Status KENIA SIMON 03/27/2023 07:26:30 Final Observation Date Value Abnormality Reference (Units ) Status BUN 03/27/2023 07:26:30 31 Above high normal 6-20 (mg/dL) Final Creatinine 03/27/2023 07:26:30 1.4 Above high normal 0.6-1.2 (mg/dL) Final Glomerular filtration rate/1.73 sq M.predicted [Volume Rate/Area] in Serum, Plasma or Blood by Creatinine-based formula (CKD-EPI) 03/27/2023 07:26:30 51 Below low normal >=60 (mL/min) Final eGFR is calculated based on the CKD-EPI 2020 equation SODIUM 03/27/2023 07:26:30 142 135-146 (m mol/L) Final Potassium 03/27/2023 07:26:30 4.8 3.5-5.1 (m mol/L) Final Cl 03/27/2023 07:26:30 105 98-107 (mm ol/L) Final CO2 03/27/2023 07:26:30 27 22-32 (mmo l/L) Final Anion gap 03/27/2023 07:26:30 10 7-15 (mmol /L) Final Glucose 03/27/2023 07:26:30 94 70-120 (mg /dL) Final Albumin 03/27/2023 07:26:30 4.2 3.8-5.0 (g /dL) Final AST (Aspartate aminotransferase) 03/27/2023 07:26:30 25 10-50 (U/L) Final Alk Phos 03/27/2023 07:26:30 82 35-130 (U/ L) Final Bilirubin, Total 03/27/2023 07:26:30 0.4 <=1 .2 (mg/dL) Final Calcium 03/27/2023 07:26:30 9.4 8.4-10.2 ( mg/dL) Final Protein 03/27/2023 07:26:30 6.7 6.0-8.3 (g /dL) Final ALT (Alanine aminotransferase) 03/27/2023 07:26:30 24 10-50 (U/L) Final Performing Location [facility] [address] [place] [address]
--- OUTSIDE RECORDS SUMMARY | 2023-09-03 18:51 | External Medical Summary ---
Author Name Unknown Address Unknown Organization K01:[facility] [place] [address] [facility] [address] [facility] [address] Laboratory Report Ordering Provider Test Date Status STEPHANIE JOHNSON 03/27/2023 07:26:30 Final Observation Date Value Abnormality Reference (Units ) Status MYCODE SPECIMEN-LAV 03/27/2023 07:26:30 Freezing of extracted DNA, whole blood and/or serum. Final Performing Location [facility] [place] [address] [facility] [address]
--- OUTSIDE RECORDS SUMMARY | 2023-09-03 18:51 | External Medical Summary ---
Author Name Unknown Address Unknown Organization K09:[facility] [place] [address] Laboratory Report Ordering Provider Test Date Status KENIA SIMON 03/27/2023 07:26:30 Final Observation Date Value Abnormality Reference (Units ) Status WBC, Total 03/27/2023 07:26:30 7.40 4.00-10.8 0 (K/uL) Final RBC 03/27/2023 07:26:30 4.74 4.50-5.25 (M/uL) Final Hemoglobin 03/27/2023 07:26:30 14.3 14.0-16.8 (g/dL) Final HCT 03/27/2023 07:26:30 44.0 40.0-48.4 (%) Final MCV 03/27/2023 07:26:30 92.8 82.0-99.5 (fL) Final MCH 03/27/2023 07:26:30 30.2 27.0-34.0 (pg) Final MCHC 03/27/2023 07:26:30 32.5 32.0-36.0 (g/dL) Final RDW 03/27/2023 07:26:30 14.0 11.5-15.5 (%) Final Platelets 03/27/2023 07:26:30 221 140-400 (K /uL) Final MPV 03/27/2023 07:26:30 10.4 6.6-11.1 ( fL) Final Performing Location [facility] [place] [address]
[2023-09-03] MEDS ORDERED: ALBUT/IPRATROP 3MG/0.5MG NEB 3 ML VIAL NEB PRN (20:13)
--- NOTE | 2023-09-03 20:39 | Ultrasound Report ---
ULTRASOUND OF THE CAROTID ARTERIES CLINICAL HISTORY: syncope TECHNIQUE: Real-time, grayscale, and color Doppler sonography of the carotid arteries is performed. I mages are reviewed in the transverse and longitudinal planes. COMPARISON: Comparison is made to CT cervical spine 07/10/2021 FINDINGS: The carotid arteries are patent bilaterally and demonstrate antegrade flow. There is mild atheroscler otic plaque on the right and mild atherosclerotic plaque on the left. Normal doppler arterial wavefor ms are seen throughout. Velocity measurements are listed below. Common carotid peak systolic velocity (cm/sec): RIGHT: 97 LEFT: 85 ICA peak systolic velocity (cm/sec): RIGHT: 61 LEFT: 51 ICA/CC peak systolic ratio: RIGHT: 0.63 LEFT: 0.60 Antegrade flow was shown in the vertebral arteries. The external carotid arteries are patent. IMPRESSION: 1. There is no sonographic evidence of hemodynamically significant stenosis in the right or left car otid arterial system. 2. Antegrade flow is shown in the vertebral arteries. Society of Radiologists in Ultrasound consensus guidelines: Normal: ICA PSV is <125 cm/sec and no plaque or intimal thickening is visible sonographically additional criteria include ICA/CCA PSV ratio <2.0 and ICA EDV <40 cm/sec <50% ICA stenosis: ICA PSV is <125 cm/sec and plaque or intimal thickening is visible sonographically additional criteria include ICA/CCA PSV ratio <2.0 and ICA EDV <40 cm/sec 50-69% ICA stenosis: ICA PSV is 125-230 cm/sec and plaque is visible sonographically additional criteria include ICA/CCA PSV ratio of 2.0-4.0 and ICA EDV of 40-100 cm/sec ?70% ICA stenosis but less than near occlusion: ICA PSV is >230 cm/sec and visible plaque and luminal narrowing are seen at smyth-scale and color Dopp ler ultrasound (the higher the Doppler parameters lie above the threshold of 230 cm/sec, the greater the likelihood of severe disease) additional criteria include ICA/CCA PSV ratio >4 and ICA EDV >100 cm/sec ACT 112: Negative or not required by law. Electronically signed by: William Martin M.D. 09/03/2023 8:36 PM
[2023-09-03] MEDS: CETIRIZINE HCL 10 MG TABLET PO SCH (20:58)
[2023-09-03] MEDS: ASPIRIN 325 MG ECTAB PO SCH (20:58)
[2023-09-04 06:22] LABS: Hematocrit (blood only) 38.4 % (42.0-52.0); Hemoglobin 12.9 g/dl (14.0-18.0); Mean Corpuscular Hemoglobin 30.6 pg (25.0-34.0); Mean Corpuscular Hgb Conc 33.6 g/dL (32.0-36.0); Mean Platelet Volume 10.5 fL (9.4-12.4); Platelet Count 213 K/uL (130-400); RDW Coefficient of Variation 13.2 % (11.5-14.5); RDW Standard Deviation 43.8 fL (36.4-46.3); Red Blood Count 4.22 M/uL (4.70-6.10); White Blood Count 7.98 K/ul (4.8-10.8)
[2023-09-04 06:49] LABS: BUN Creatinine Ratio 22.3 (10-20); Calcium 8.8 mg/dl (8.6-10.3); Creatinine Clr Calc Pharmacy 44.7 ml/min; Est GFR (African American) 53.6 ml/min; Est GFR (Non-African American) 46.2 ml/min; Potassium 4.4 mmol/L (3.5-5.1)
[2023-09-04] MEDS: FINASTERIDE 5 MG TAB PO SCH (09:06)
[2023-09-04] MEDS: ATORVASTATIN 40 MG TAB PO SCH (09:06)
[2023-09-04] MEDS: CHOLECALCIFEROL 25 MCG (1000 UNITS) TAB PO SCH (09:07)
--- NOTE | 2023-09-04 12:58 | Cardiology Progress Note ---
Date of Service September 04, 2023 Assessment & Plan (1) Sinus bradycardia: (2) Syncope: Plan Patient admitted after a syncopal episode at the [facility]. Patient was sitting on a weight bench when episode occurred and bystanders lowered him to the floor. No incontinence No seizure like activity. Duration of unconsciousness is unknown. This is 3rd episode in 9 months. Other episodes were similar, without warning and with true LOC. He denies recent dizziness reports he has been more fatigued lately. He was mildly dehydrated on arrival. Telemetry reveals sinus bradycardia with HR in the low 50's. No pauses. Currently he is asymptomatic. He is not on Beta hebert or CCB HS troponin unremarkable. Echocardiogram is pending. Order carotid duplex. Recommend ongoing telemetry overnight. Given this is his 3rd event, would consider loop recorder implantation vs need for PPM if he has worsening bradycardic events overnight. 09/04/23: Patient re-evaluated this morning without recurrent syncopal events this morning. Telemetry reviewed and he has remained persistently bradycardic with HR ranging 47 to low 50's. He had one nearly 2 second pause but was likely sleeping. Concerned with underlying sinus bradycardia/conduction system disease is contributing to his syncopal events. Long discussion with patient/ about potential need for pacemaker. Patient would like to think about options. Dr. Azul to discuss case with EP, Dr. Donnelly. The other option would be for a loop recorder. Further recommendations and plan of care to be determined after discussion with Dr. Azul and EP, Dr. Donnelly. Case discussed with Dr. Azul I spent a total of 40 minutes on the date of service in preparation, delivery, and documentation of the care provided to this patient, excluding any time spent in the performance of separately billed services. Marylu Sapp PA-C Department of Cardiology, [facility] This chart was completed in part utilizing Speech Voice Recognition Software. Grammatical errors, random word insertions, pronoun errors, and incomplete sentences are an occasional consequence of this system due to software limitations, ambient noise, and hardware issues. Any formal questions or concerns about the content, text, or information contained within the body of this dictation should be directly addressed to the provider for clarification. Admission and Anticipated Discharge Date Admission Date: September 03, 2023 Supervising Physician Co-Signing Physician Notes Attending attestation: Case reviewed with the advanced practitioner. I have personally performed a history and physical examination on the patient. I have reviewed the advanced practitioner's documentation on the date of service referenced in note, and I agree with, and take responsibility for the plan of care. Had a discussion with the patient and his spouse, Vale. In addition to recent syncopal episodes, patient notes easy fatigability, generalized tiredness. Carotid duplex negative for stenosis. Discussed options with him. Patient elects to proceed with dual-chamber permanent pacemaker implantation for treatment of symptomatic bradycardia. Test tentatively scheduled for a.m. of 09/05/2023. Will hold subcutaneous heparin after this evening's dose. I spent a total of 20 minutes coordinating, documenting, and providing care for this patient excluding time spent in the performance of separately billed services or time spent by another provider. Laurent Azul, DO Subjective Patient resting in bed comfortably. at bedside. He denies recent or recurrent dizziness/lightheadedness/syncope or near syncope last evening, overnight or this morning. He denies chest pain or unusual shortness of breath. Extensive review of telemetry reveals sinus bradycardia with heart rates ranging 46 to 55 bpm. 1 prolonged R to R interval at 1.9 seconds. Patient was likely sleeping. Review of Systems Review of Systems: All systems reviewed & are unremarkable except as noted in HPI & below Physical Exam Constitutional: WD/WN, vitals as above well nourished; no acute distress Neck: trachea midline, no thyromegaly Respiratory: normal respiratory effort Auscultation: lungs clear to auscultation bilaterally Cardiovascular: Rate/Rhythm: regular rhythm and + bradycardic Heart Sounds: normal S1 and normal S2; no murmur Vessels: no JVD Extremities: no edema Gastrointestinal (Abdomen): normal bowel sounds, soft, nontender, no hepatosplenomegaly Musculoskeletal: no cyanosis or clubbing, extremities motor strength 5/5 Neurologic: PERRL, EOMI, accommodation nl, no face palsy, no dysarthria Psychiatric: A+Ox3, euthymic affect Results & Data Vital Signs (Past 12 Hours) Vital Signs Temp Pulse Pulse Resp BP Pulse Ox O2 Del Method 09/04/23 11:57 36.9 C 50 L 22 163/89 H 96 Room Air 09/04/23 09:40 47 L 09/04/23 07:52 36.5 C 61 20 153/81 H 96 Room Air 09/04/23 03:23 48 L 09/04/23 03:00 36.7 C 56 L 16 127/73 94 Room Air Laboratory Results CBC 09/04/23 Range/Units 05:40 WBC 7.98 (4.8-10.8) K/ul RBC 4.22 L (4.70-6.10) M/uL Hgb 12.9 L (14.0-18.0) g/dl Hct 38.4 L (42.0-52.0) % Plt Count 213 (130-400) K/uL Comprehensive Metabolic Panel 09/04/23 Range/Units 05:40 Sodium 138 (136-145) mmol/L Potassium 4.4 (3.5-5.1) mmol/L Chloride 106 (98-107) mmol/L Carbon Dioxide 26 (21-32) mmol/L BUN 31 H (6-23) mg/dl Creatinine 1.39 (0.6-1.4) mg/dl Glucose 92 (70-99(Fasting)) mg/dl Calcium 8.8 (8.6-10.3) mg/dl Intake and Output 09/03/23 09/04/23 09/04/23 22:59 06:59 14:59 Intake Total 480 / 600 120 / 600 Balance 480 / 600 120 / 600 Intake: Oral 480 / 600 120 / 600 Other: Weight 82.3 kg 82.3 kg Weight Measurement Method Standing Scale Standing Scale Diagnostic Findings Telemetry reviewed: Sinus bradycardia ranging about 46 bpm to 55 bpm. Longest R to R interval noted was 1.9 seconds at 6:40 AM. EKG today reviewed dated 09/04/2023: Sinus bradycardia with first-degree AV block at 47 bpm Possible LVH. No significant changes noted. Echocardiogram report reviewed dated 09/03/2023: Normal LV wall thickness. LV wall motion is normal. Left ventricular systolic function is normal with ejection fraction 60 to 65%. Grade 1 diastolic dysfunction. Aortic valve sclerosis mild without significant aortic valvular stenosis. Carotid duplex report reviewed dated September 2023: IMPRESSION: 1. There is no sonographic evidence of hemodynamically significant stenosis in the right or left carotid arterial system. 2. Antegrade flow is shown in the vertebral arteries. Medications Administered Current Inpatient Medications Acetaminophen (Acetaminophen 325 Mg Tab) 650 mg PO Q4H PRN PRN Reason: Pain or Fever Stop: 10/03/23 14:18 Albuterol (Albut/Ipratrop 3mg/0.5mg Neb 3 Ml Vial) 3 ml NEB QIDR PRN; Protocol PRN Reason: Shortness Of Breath Or Wheezing Stop: 10/04/23 06:59 Albuterol (Albuterol Hfa 8 Gm Inhaler) 2 puffs INH Q6H PRN PRN Reason: Shortness Of Breath Or Wheezing Stop: 10/03/23 16:55 Aspirin (Aspirin 325 Mg Ectab) 325 mg PO QPM [facility] Stop: 10/03/23 20:59 Last Admin: 09/03/23 20:58 Dose: 325 mg Atorvastatin Calcium (Atorvastatin 40 Mg Tab) 40 mg PO DAILY [facility] Stop: 10/04/23 08:59 Last Admin: 09/04/23 09:06 Dose: 40 mg Cetirizine HCl (Cetirizine Hcl 10 Mg Tablet) 10 mg PO HS [facility]; Protocol Stop: 10/03/23 20:59 Last Admin: 09/03/23 20:58 Dose: 10 mg Finasteride (Finasteride 5 Mg Tab) 5 mg PO DAILY [facility] Stop: 10/04/23 08:59 Last Admin: 09/04/23 09:06 Dose: 5 mg Heparin Sodium (Porcine) (Heparin Sod 5,000 Unit/0.5 Ml Vial) 5,000 units SQ Q8 [facility] Stop: 09/04/23 23:59 Last Admin: 09/04/23 05:43 Dose: 5,000 units Ondansetron HCl (Ondansetron Inj 2 Mg/Ml 2 Ml Vial) 4 mg IV Q6H PRN PRN Reason: Nausea Stop: 10/03/23 14:18 Polyethylene Glycol (Polyethylene (Miralax) 17 Gm Pack) 17 gm PO DAILY PRN PRN Reason: Constipation Stop: 10/03/23 14:18 Vitamin D (Cholecalciferol 25 Mcg (1000 Units) Tab) 25 mcg PO DAILY [facility] Stop: 10/04/23 08:59 Last Admin: 09/04/23 09:07 Dose: 25 mcg (2) Syncope Syncope type: unspecified Qualified Code(s): R55 - Syncope and collapse
--- NOTE | 2023-09-04 15:37 | Hospitalist Progress Note ---
Date of Service September 04, 2023 Assessment & Plan (1) Sinus bradycardia: (2) Syncope: Plan: This is an 82-year-old male with PMH of TIA a few years ago, CKD 3, hyperlipidemia, mild asthma, BPH and other medical problems as below who presents after syncopal event witnessed at the [facility] earlier today. Third episode of witnessed syncope in past 9 months in setting while working out More fatigue over the past few months Telemetry reveals sinus bradycardia with HR in the low 50's CT head without acute intracranial abnormalities CXR without acute changes Not on Beta hebert or CCB Ordered 2D echo, carotid dopplers, orthostatics Hold alfuzosin Appreciate cardiology input and recommendation Echo of the heart showed-LV wall thickness normal, wall motion is normal, LV systolic function is normal with EF 60 to 65%, grade 1 diastolic dysfunction, aortic valve sclerosis mild without significant stenosis Ongoing bradycardia with pauses up to 2 seconds and recurrent syncope likely for the same reason Will go for pacemaker implantation tomorrow (3) Brain TIA: Plan: Occurred a few years ago, no additional neuro events since then. Continue aspirin, statin No acute neurological symptoms (4) CKD (chronic kidney disease), stage III: Plan: Cr 1.36 on admission (baseline 1.2-1.4) Monitor with daily BMP (5) Asthma: Plan: Continue albuterol inhaler, O2 saturation 94% on room air (6) BPH (benign prostatic hyperplasia): Plan: Continue finasteride, hold alfuzosin with concern for orthostatic hypotention. Consider transitioning to Tamsulosin Bladder scan PRN DVT Ppx: SQ heparin Code status: FULL PCP: Lesly Dispo: observation PCU Admission and Anticipated Discharge Date Admission Date: September 03, 2023 Subjective 09/04/2023 The patient was seen and examined in telemetry unit in presence of the He has been feeling much better This is his third episode of syncope in a year Will have cardiac pacemaker tomorrow Review of Systems Review of Systems: All systems reviewed and are unremarkable except as noted below Physical Exam Physical Exam: Lying in bed comfortably Constitutional: well developed and well nourished; not ill appearing Eyes: PERRL, conjunctivae normal, anicteric sclerae ENMT: external ear and nose normal, oropharynx normal Neck: trachea midline, no thyromegaly Respiratory: no respiratory distress Auscultation: lungs clear to auscultation bilaterally; no crackles Cardiovascular: Rate/Rhythm: regular rate, regular rhythm and + bradycardic Heart Sounds: normal S1 and normal S2; no murmur Extremities: no edema Gastrointestinal (Abdomen): Inspection/Auscultation: normal bowel sounds; abdomen not distended Percussion/Palpation: abdomen soft; abdomen nontender Musculoskeletal: No acute arthritis involving any of the joint Neurologic: normal touch/pain/proprioception and moves all extremities; no focal motor deficits Psychiatric: A+Ox3, euthymic affect Lymphatic: no cervical or axillary lymphadenopathy Results & Data Results & Data Vital Signs (Past 12 Hours) Vital Signs Temp Pulse Pulse Resp BP Pulse Ox O2 Del Method 09/04/23 15:03 49 L 09/04/23 15:00 09/04/23 11:57 36.9 C 50 L 22 163/89 H 96 Room Air 09/04/23 09:40 47 L 09/04/23 07:52 36.5 C 61 20 153/81 H 96 Room Air O2 Del Method 09/04/23 15:03 09/04/23 15:00 Room Air 09/04/23 11:57 09/04/23 09:40 09/04/23 07:52 Laboratory Results Short CBC 09/04/23 Range/Units 05:40 WBC 7.98 (4.8-10.8) K/ul Hgb 12.9 L (14.0-18.0) g/dl Hct 38.4 L (42.0-52.0) % Plt Count 213 (130-400) K/uL BMP 09/04/23 05:40 Sodium 138 Potassium 4.4 Chloride 106 Carbon Dioxide 26 BUN 31 H Creatinine 1.39 Glucose 92 Calcium 8.8 Medications Administered Current Inpatient Medications Acetaminophen (Acetaminophen 325 Mg Tab) 650 mg PO Q4H PRN PRN Reason: Pain or Fever Stop: 10/03/23 14:18 Albuterol (Albut/Ipratrop 3mg/0.5mg Neb 3 Ml Vial) 3 ml NEB QIDR PRN; Protocol PRN Reason: Shortness Of Breath Or Wheezing Stop: 10/04/23 06:59 Albuterol (Albuterol Hfa 8 Gm Inhaler) 2 puffs INH Q6H PRN PRN Reason: Shortness Of Breath Or Wheezing Stop: 10/03/23 16:55 Aspirin (Aspirin 325 Mg Ectab) 325 mg PO QPM [facility] Stop: 10/03/23 20:59 Last Admin: 09/03/23 20:58 Dose: 325 mg Atorvastatin Calcium (Atorvastatin 40 Mg Tab) 40 mg PO DAILY [facility] Stop: 10/04/23 08:59 Last Admin: 09/04/23 09:06 Dose: 40 mg Cetirizine HCl (Cetirizine Hcl 10 Mg Tablet) 10 mg PO HS [facility]; Protocol Stop: 10/03/23 20:59 Last Admin: 09/03/23 20:58 Dose: 10 mg Finasteride (Finasteride 5 Mg Tab) 5 mg PO DAILY [facility] Stop: 10/04/23 08:59 Last Admin: 09/04/23 09:06 Dose: 5 mg Heparin Sodium (Porcine) (Heparin Sod 5,000 Unit/0.5 Ml Vial) 5,000 units SQ Q8 [facility] Stop: 09/04/23 23:59 Last Admin: 09/04/23 14:17 Dose: 5,000 units Ondansetron HCl (Ondansetron Inj 2 Mg/Ml 2 Ml Vial) 4 mg IV Q6H PRN PRN Reason: Nausea Stop: 10/03/23 14:18 Polyethylene Glycol (Polyethylene (Miralax) 17 Gm Pack) 17 gm PO DAILY PRN PRN Reason: Constipation Stop: 10/03/23 14:18 Vitamin D (Cholecalciferol 25 Mcg (1000 Units) Tab) 25 mcg PO DAILY [facility] Stop: 10/04/23 08:59 Last Admin: 09/04/23 09:07 Dose: 25 mcg (2) Syncope Syncope type: unspecified Qualified Code(s): R55 - Syncope and collapse
[2023-09-05 06:16] LABS: Basophils # (auto) 0.06 K/uL (0.00-0.20); Basophils % (auto) 0.8 %; Eosinophils # (auto) 0.38 K/uL (0.00-0.50); Hematocrit (blood only) 40.6 % (42.0-52.0); Hemoglobin 13.5 g/dl (14.0-18.0); Immature Granulocytes # (auto) 0.02 K/uL (0.01-0.20); Immature Granulocytes % (auto) 0.3 %; Lymphocytes # (auto) 2.25 K/uL (1.20-3.40); Lymphocytes % (auto) 29.5 %; Mean Corpuscular Hemoglobin 30.1 pg (25.0-34.0); Mean Corpuscular Hgb Conc 33.3 g/dL (32.0-36.0); Mean Corpuscular Volume 90.6 fL (80.0-100.0); Mean Platelet Volume 10.5 fL (9.4-12.4); Monocytes # (auto) 0.83 K/uL (0.11-0.59); Monocytes % (auto) 10.9 %; Neutrophils % (auto) 53.5 %; Platelet Count 220 K/uL (130-400); RDW Coefficient of Variation 13.3 % (11.5-14.5); RDW Standard Deviation 44.1 fL (36.4-46.3); Red Blood Count 4.48 M/uL (4.70-6.10); White Blood Count 7.64 K/ul (4.8-10.8)
[2023-09-05 07:05] LABS: BUN Creatinine Ratio 23.7 (10-20); Creatinine Clr Calc Pharmacy 44.7 ml/min; Est GFR (African American) 53.6 ml/min; Est GFR (Non-African American) 46.2 ml/min; Magnesium 2.3 mg/dl (1.7-2.4); Phosphorus 3.8 mg/dl (2.5-4.9); Potassium 4.7 mmol/L (3.5-5.1)
--- NOTE | 2023-09-05 10:36 | History & Physical Bridge Note ---
Date of Service September 05, 2023 History & Physical Bridge Note I have examined the patient, reviewed the History & Physical and in the interval since the performance of the History & Physical I have noted the following changes of clinical significance: no changes noted
--- NOTE | 2023-09-05 10:37 | Pre Anesthesia Assessment ---
Date of Service September 05, 2023 Pre Sedation Assessment Vital Signs Temp Pulse Pulse Resp BP Pulse Ox O2 Del Method 09/05/23 09:58 47 L 12 157/73 H 97 Room Air 09/05/23 07:35 36.2 C L 47 L 18 146/82 H 92 Room Air 09/05/23 03:09 36.5 C 45 L 18 144/74 H 96 Room Air 09/04/23 22:56 37.0 C 50 L 16 157/78 H 96 Room Air 09/04/23 19:00 37.0 C 52 L 18 158/87 H 92 Room Air 09/04/23 16:18 36.9 C 53 L 18 134/81 94 Room Air 09/04/23 15:03 49 L 09/04/23 15:00 09/04/23 11:57 36.9 C 50 L 22 163/89 H 96 Room Air O2 Del Method 09/05/23 09:58 09/05/23 07:35 09/05/23 03:09 09/04/23 22:56 09/04/23 19:00 09/04/23 16:18 09/04/23 15:03 09/04/23 15:00 Room Air 09/04/23 11:57 Cardiovascular + bradycardic Respiratory normal respiratory effort, lungs clear to auscultation Pre-Sedation Airway Assessment Smoking Status: Never smoker Hx Sleep Apnea: No Short, Thick Neck: No Thyromental Distance: > or= 3.5 Finger Breadths Oral Cavity: + WNL Mallampati Class: III ASA: ASA3 NPO Status Date of Last Intake of Fluids: 09/05/23 Time of Last Intake of Fluids: 07:30 Date of Last Intake of Solid Food: 09/04/23 Time of Last Intake of Solid Foods: 10:30 Procedure Planning Contraindications for Sedation: none Current Medications Reviewed: Yes Notes The planned sedation has been discussed with the patient. Informed Consent was obtained. I have identified the patient, determined the appropriateness of sedation and have assessed the patient immediately prior to the procedure. All medicine(s) and interventions are by my order.
[2023-09-05] MEDS: BUPIVACAINE 0.25% PF 30 ML VIAL ONE (11:31)
[2023-09-05] MEDS: WATER, STERILE FOR INJ 10 ML VIAL ONE (11:32)
[2023-09-05] MEDS: ceFAZolin 330 MG/ML 1 GM VIAL ONE (11:32)
[2023-09-05] MEDS: VANCOMYCIN HCL 1000MG/20ML VIAL ONE (11:32)
[2023-09-05] MEDS: fentaNYL citrate PF 100 MCG/2 ML VIAL ONE (11:40)
[2023-09-05] MEDS: MIDAZOLAM HCL 5 MG/ML 1 ML VIAL ONE (11:40)
--- NOTE | 2023-09-05 12:08 | Post Anesthesia Assessment ---
Date of Service September 05, 2023 Post Sedation Assessment Vital Signs Temp Pulse Pulse Resp BP Pulse Ox O2 Del Method 09/05/23 09:58 47 L 12 157/73 H 97 Room Air 09/05/23 07:35 36.2 C L 47 L 18 146/82 H 92 Room Air 09/05/23 03:09 36.5 C 45 L 18 144/74 H 96 Room Air 09/04/23 22:56 37.0 C 50 L 16 157/78 H 96 Room Air 09/04/23 19:00 37.0 C 52 L 18 158/87 H 92 Room Air 09/04/23 16:18 36.9 C 53 L 18 134/81 94 Room Air 09/04/23 15:03 49 L 09/04/23 15:00 O2 Del Method 09/05/23 09:58 09/05/23 07:35 09/05/23 03:09 09/04/23 22:56 09/04/23 19:00 09/04/23 16:18 09/04/23 15:03 09/04/23 15:00 Room Air Recovery Score Activity: Moves 4 extremities Respiration: Deep Breath/Cough Circulation: +/-20% PreAnes Value Consciousness: Fully Awake Oxygen Saturation: > 92% On Room Air Discharge Sedation Level of Care: Fast Track Phase II Post Sedation Plan On clinical assessment, the patient appears to have tolerated the sedation without complications. Patient is recovering as anticipated. Patient will continue to be monitored by nursing and may be discharged when sedation discharge criteria are met per below protocol. Upon Completions of procedure up to 15 minutes continue every 5 minute vital signs and the P.A.R. score; then discharge to a Phase I or Fast Track to Phase II per the following guidelines: * Discharge Patient to appropriate Phase II area if PAR is 8 or greater or return to pre- procedure baseline. The post - procedure orders will be as directed. * If PAR score is less than 8 or not return to pre-procedure baseline then patient will follow Phase I monitoring till PAR is reached for Phase II. The Phase I may be done in procedure room or may call to secure a Phase I area. * If naloxone or flumazenil are used for reversal, hold in Phase I for continued monitoring from when last reversal dose was given for a minimum of 60 minutes or longer pending the nurse and/or physician discretion of patient condition before discharge to Phase II. Please call the Sedation Physician to re-evaluate and complete post-note for discharge to Phase II area. Do NOT discharge from procedure sedation or Phase 1 until post- sedation evaluation note is complete by procedure /sedation MD Sedation Discharge Instructions to be given to the patient at discharge to home.
--- NOTE | 2023-09-05 13:46 | Electrocardiogram Report ---
Test Reason : Blood Pressure : / mmHG Vent. Rate : 055 BPM Atrial Rate : 055 BPM P-R Int : 200 ms QRS Dur : 090 ms QT Int : 466 ms P-R-T Axes : 062 -16 027 degrees QTc Int : 445 ms Sinus bradycardia Minimal voltage criteria for LVH, may be normal variant ( R in aVL ) Borderline ECG When compared with ECG of 10-FEB-2022 09:42, No significant change was found Confirmed by Valeriano Jones ([id number]) on 09/05/2023 1:46:32 PM Referred By: REFERRED SELF Confirmed By:Valeriano Jones
--- NOTE | 2023-09-05 14:28 | Cardiology Progress Note ---
Date of Service September 05, 2023 Assessment & Plan (1) Sinus bradycardia: (2) Sick sinus syndrome: (3) Syncope: (4) Pacemaker: (5) Brain TIA: Plan Patient is s/p implantation of a dual chamber [employer] pacemaker. Repeat interrogation reviewed with the [employer] Coordinator with normal function noted. Post Chest X ray performed, radiology report pending.Await report , if stable findings and no pneumothorax will plan for discharge today. Will arrange post procedure wound check and device check for Natalya Prabhakar in 6-10 days and follow up with our office soon after. Pt with h/o TIA about two years ago. Continue [employer] T[employer] ASA 325 mg daily and atorvastatin. BP a little on higher side, but will permit given recent syncope and follow up as outpatient. Post procedure wound care instructions added to discharge document. Angel Azul DO Admission and Anticipated Discharge Date Admission Date: September 03, 2023 Subjective Patient seen post op after dual chamber pacemaker placement. Accompanied by spouse in room 451. Pt feeling well. Denies chest pain. Post op pain controlled. Review of Systems Review of Systems: All systems reviewed & are unremarkable except as noted in HPI & below Physical Exam Constitutional: WD/WN, vitals as above Respiratory: normal respiratory effort, lungs clear to auscultation Cardiovascular: RRR, no murmur, no edema Chest (Breasts): Additional Comments: left infraclavicular device pocket dressed. Gastrointestinal (Abdomen): normal bowel sounds, soft, nontender, no hepatosplenomegaly Neurologic: PERRL, EOMI, accommodation nl, no face palsy, no dysarthria Results & Data Vital Signs (Past 12 Hours) Vital Signs Temp Pulse Resp BP BP Pulse Ox O2 Del Method 09/05/23 14:03 60 16 148/83 H 96 Room Air 09/05/23 12:56 36.2 C L 60 16 137/87 95 Room Air 09/05/23 12:30 95 H 18 156/94 H 96 Room Air 09/05/23 12:15 96 H 18 153/95 H 96 Room Air 09/05/23 09:58 47 L 12 157/73 H 97 Room Air 09/05/23 07:35 36.2 C L 47 L 18 146/82 H 92 Room Air 09/05/23 03:09 36.5 C 45 L 18 144/74 H 96 Room Air (3) Syncope Syncope type: unspecified Qualified Code(s): R55 - Syncope and collapse
--- NOTE | 2023-09-05 14:45 | XRay Report ---
XR chest 1V portable CLINICAL HISTORY: s/p ppm ensure no ptx TECHNIQUE: Single frontal radiograph of the chest was obtained. Comparison: Comparison is made to chest radiograph 09/03/2023 FINDINGS: Interval placement of a pacemaker with the leads in satisfactory position. The cardiomediastinal silh ouette is normal. The lungs are clear. No evidence of pleural effusion or pneumothorax. IMPRESSION: Interval placement of a pacemaker with the leads in satisfactory position. No evidence of pneumothora x. ACT 112: Negative or not required by law. Electronically signed by: William Martin M.D. 09/05/2023 2:44 PM
--- NOTE | 2023-09-05 14:45 | Hospitalist Progress Note ---
Date of Service September 05, 2023 Assessment & Plan (1) Sinus bradycardia: (2) Syncope: Plan: This is an 82-year-old male with PMH of TIA a few years ago, CKD 3, hyperlipidemia, mild asthma, BPH and other medical problems as below who presents after syncopal event witnessed at the [facility] earlier today. Sick sinus syndrome Sinus bradycardia Syncope secondary to above S/P pacemaker placement by on 09/05/2023 -CXR:Interval placement of a pacemaker with the leads in satisfactory position. No evidence of pneumothorax. -- Carotid Doppler:There is no sonographic evidence of hemodynamically significant stenosis in the right or left carotid arterial system. Antegrade flow is shown in the vertebral arteries. --ECHO: Normal left ventricle wall thickness. Left ventricle wall motion is normal. Left ventricle systolic function normal. EF 60 to 65%. Grade 1 diastolic dysfunction. Aortic valve sclerosis mild, without significant aortic valve stenosis -- CT Head:No acute intracranial findings. No calvarial fractures. Appreciate cardiology input Needs follow-up with cardiology on discharge (3) Brain TIA: Plan: Occurred a few years ago, no additional neuro events since then. Continue aspirin, statin No acute neurological symptoms (4) CKD (chronic kidney disease), stage III: Plan: Cr 1.36 on admission (baseline 1.2-1.4) Monitor with daily BMP Renal function at baseline (5) Asthma: Plan: Continue albuterol inhaler, O2 saturation 94% on room air No signs of acute exacerbation (6) BPH (benign prostatic hyperplasia): Plan: Continue finasteride, alfuzosin Bladder scan PRN DVT Px: SQ heparin Code status: FULL Disposition Home Admission and Anticipated Discharge Date Admission Date: September 03, 2023 Subjective Patient is seen and examined at bedside Had pacemaker placement earlier today Offers no complaints postprocedure Denies any chest pain, dyspnea, dizziness, nausea, vomiting, abdominal pain Discussed with patient and family at bedside Discussed with cardiology today Plan to discharge home today Review of Systems Review of Systems: All systems reviewed & are unremarkable except as noted in Subjective Physical Exam Physical Exam: Physical Exam: Vitals signs as noted above General Appearance:Moderately built and nourished, no apparent distress Head: normocephalic, Atraumatic Eyes: normal inspection, EOMI Neck: supple, Trachea midline Respiratory/Chest: Normal breath sounds, CTA, + pacer on left side, No accessory muscle use Cardiovascular: S1, S2, No murmur Abdomen/GI:Soft, Non tender, Bowel sounds present Extremities/Musculoskeletal:normal inspection, no edema Neurologic/Psych:AAOX3, grossly no focal neurological deficits Skin: normal color, warm Results & Data Results & Data Vital Signs (Past 12 Hours) Vital Signs Temp Pulse Resp BP BP Pulse Ox O2 Del Method 09/05/23 14:03 60 16 148/83 H 96 Room Air 09/05/23 12:56 36.2 C L 60 16 137/87 95 Room Air 09/05/23 12:30 95 H 18 156/94 H 96 Room Air 09/05/23 12:15 96 H 18 153/95 H 96 Room Air 09/05/23 09:58 47 L 12 157/73 H 97 Room Air 09/05/23 07:35 36.2 C L 47 L 18 146/82 H 92 Room Air 09/05/23 03:09 36.5 C 45 L 18 144/74 H 96 Room Air Laboratory Results Short CBC 09/05/23 Range/Units 05:18 WBC 7.64 (4.8-10.8) K/ul Hgb 13.5 L (14.0-18.0) g/dl Hct 40.6 L (42.0-52.0) % Plt Count 220 (130-400) K/uL BMP 09/05/23 05:18 Sodium 139 Potassium 4.7 Chloride 106 Carbon Dioxide 27 BUN 33 H Creatinine 1.39 Glucose 86 Calcium 9.0 (2) Syncope Syncope type: unspecified Qualified Code(s): R55 - Syncope and collapse
--- NOTE | 2023-09-05 14:54 | Discharge Summary ---
Date of Service September 05, 2023 Admission HPI Per Admitting Provider This is an 82-year-old male with PMH of TIA a few years ago, CKD 3, hyperlipidemia, mild asthma, BPH and other medical problems as below who presents after syncopal event witnessed at the [facility] earlier today. Patient wor ks out regularly and just returned from 4 months away in [place] where he and his spent the winter. While there, he had been swimming 3x/week and had been walking as well. Since returning home[facility] Was finishing a set of arms with 10 pound dumbbells earlier today when his arm started to feel tired and he took a seat on the bench. Next memory was lying down on the bench where a bystander had reportedly lowered him to the ground. No head trauma. Unsure how long episode was. Had intermittent confusion and was brought to ED for further evaluation. Upon arrival, was mentating back to baseline. at bedside states he had 2 similar syncopal episodes over the summer while participating in [employer]. Those instances were similar where he was standing up working out, felt fatigued and sat down and then passed out. states over the past 3 months he is becoming more tired at baseline and unwilling to do things he would have in the past like go on neighborhood walks. Also endorses feeling cold and needing to turn the heat up. No known history of arrhythmias. Not on a beta hebert. Poor water intake at baseline, per . Denies any chest pain, palpitations, shortness of breath, nausea, vomiting, abdominal pain, dysuria, diarrhea or constipation. Admission Exam Per Admitting Provider General Appearance: WD/WN, vitals as above, NAD, sitting up in bed, pleasant, conversing easily Head: normocephalic, atraumatic Eyes: normal inspection, PERRL, conjunctivae normal, anicteric sclerae ENT: external ear and nose normal, oropharynx normal Neck: normal visual inspection, trachea midline, no thyromegaly Respiratory: normal respiratory effort, decreased lung sounds with expiratory wheeze left base. No accessory muscle use Cardiovascular: bradycardic rate, regular rhythm, normal peripheral pulses, no BLE edema. Vessels: no JVD Chest: normal inspection of chest Abdomen/GI: normal bowel sounds, soft, nontender, no hepatosplenomegaly Extremities/Musculoskeletal: no cyanosis or clubbing, extremities motor strength 5/5 Neurologic: PERRL, EOMI, accommodation nl, no face palsy, no dysarthria, CN's II-XI intact bilaterally and moves all extremities Psychiatric: A+Ox3, euthymic affect Skin: no rashes, normal color, warm/dry Principal Diagnosis Sick sinus syndrome Sinus bradycardia Syncope Discharge Data Allergies Allergy/AdvReac Type Severity Reaction Status Date / Time No Known Allergies Allergy Unverified 03/28/21 12:15 Consultations 09/03/23 12:42 ED Decision to Admit Stat 09/03/23 14:56 Consult Cardiology Routine Procedures Performed Operation Date: 09/05/23 10:00 Actual Procedures p Pacer with A/V Leads (Dual) - Lenka Donnelly DO s Venogram, Unilateral - Lenka Donnelly DO Laboratory Results WBC 7.64 K/ul (4.8-10.8) 09/05/23 05:18 RBC 4.48 M/uL (4.70-6.10) L 09/05/23 05:18 Hgb 13.5 g/dl (14.0-18.0) L 09/05/23 05:18 Hct 40.6 % (42.0-52.0) L 09/05/23 05:18 MCV 90.6 fL (80.0-100.0) 09/05/23 05:18 MCH 30.1 pg (25.0-34.0) 09/05/23 05:18 MCHC 33.3 g/dL (32.0-36.0) 09/05/23 05:18 RDW Std Deviation 44.1 fL (36.4-46.3) 09/05/23 05:18 RDW Coeff of Gia 13.3 % (11.5-14.5) 09/05/23 05:18 Plt Count 220 K/uL (130-400) 09/05/23 05:18 MPV 10.5 fL (9.4-12.4) 09/05/23 05:18 Immature Gran % (Auto) 0.3 % 09/05/23 05:18 Neut % (Auto) 53.5 % 09/05/23 05:18 Lymph % (Auto) 29.5 % 09/05/23 05:18 [place] % (Auto) 10.9 % 09/05/23 05:18 Eos % (Auto) 5.0 % 09/05/23 05:18 Baso % (Auto) 0.8 % 09/05/23 05:18 Neut # (Auto) 4.10 K/uL (1.40-6.50) 09/05/23 05:18 Lymph # (Auto) 2.25 K/uL (1.20-3.40) 09/05/23 05:18 [place] # (Auto) 0.83 K/uL (0.11-0.59) H 09/05/23 05:18 Eos # (Auto) 0.38 K/uL (0.00-0.50) 09/05/23 05:18 Baso # (Auto) 0.06 K/uL (0.00-0.20) 09/05/23 05:18 Immature Gran # (Auto) 0.02 K/uL (0.01-0.20) 09/05/23 05:18 PT 10.5 Seconds (9.0-12.0) 09/03/23 11:47 INR 1.0 (0.9-1.1) 09/03/23 11:47 APTT 26 Seconds (21-31) 09/03/23 11:47 PTT Ratio 0.9 09/03/23 11:47 Sodium 139 mmol/L (136-145) 09/05/23 05:18 Potassium 4.7 mmol/L (3.5-5.1) 09/05/23 05:18 Chloride 106 mmol/L (98-107) 09/05/23 05:18 Carbon Dioxide 27 mmol/L (21-32) 09/05/23 05:18 Anion Gap 6 (3-11) 09/05/23 05:18 BUN 33 mg/dl (6-23) H 09/05/23 05:18 Creatinine 1.39 mg/dl (0.6-1.4) 09/05/23 05:18 Est Cr Clr Drug Dosing 44.7 ml/min 09/05/23 05:18 Est GFR ( Amer) 53.6 ml/min 09/05/23 05:18 Est GFR (Non-Af Amer) 46.2 ml/min 09/05/23 05:18 BUN/Creatinine Ratio 23.7 (10-20) H 09/05/23 05:18 Glucose 86 mg/dl (70-99(Fasting)) 09/05/23 05:18 Calcium 9.0 mg/dl (8.6-10.3) 09/05/23 05:18 Phosphorus 3.8 mg/dl (2.5-4.9) 09/05/23 05:18 Magnesium 2.3 mg/dl (1.7-2.4) 09/05/23 05:18 Troponin I High Sens 5.1 pg/ml (0-20) 09/03/23 11:47 Lipase 18 U/L (11-82) 09/03/23 11:47 Urine Color Yellow 09/03/23 14:24 Urine Appearance Clear (Clear) 09/03/23 14:24 Urine pH 6.5 (4.5-7.5) 09/03/23 14:24 Ur Specific Falls 1.016 (1.000-1.030) 09/03/23 14:24 Urine Protein Negative (Negative) 09/03/23 14:24 Urine Glucose (UA) Negative (Negative) 09/03/23 14:24 Urine Ketones Negative (Negative) 09/03/23 14:24 Urine Blood Negative (Negative) 09/03/23 14:24 Urine Nitrite Negative (Negative) 09/03/23 14:24 Urine Bilirubin Negative (Negative) 09/03/23 14:24 Urine Urobilinogen Negative (Negative) 09/03/23 14:24 Ur Leukocyte Esterase Negative (Negative) 09/03/23 14:[address] 09/03/23 11:56 CT OF THE HEAD WITHOUT CONTRAST CLINICAL HISTORY: Syncope. COMPARISON STUDY: Head CT July 10, 2021. CT DOSE: 625.8 mGy.cm TECHNIQUE: Helical axial images of the head were obtained without IV contrast. Automated exposure control was utilized for the study. A dose lowering technique was utilized adhering to the principles of ALARA. FINDINGS: No acute intracranial hemorrhage, midline shift or mass effect is present. The ventricular system is unremarkable. The basal cisterns are patent. No extra-axial collections are present. There are no findings to suggest acute dural sinus thrombosis or acute territorial infarct. No significant calvarial abnormalities are present. Visualized portions of the sinuses and mastoid air cells are clear. IMPRESSION: 1. No acute intracranial findings. 2. No calvarial fractures. ACT 112: Negative or not required by law. Electronically signed by: Avery Perez M.D. 09/03/2023 12:23 PM Carotid Doppler Study 09/03/23 16:16 ULTRASOUND OF THE CAROTID ARTERIES CLINICAL HISTORY: syncope TECHNIQUE: Real-time, grayscale, and color Doppler sonography of the carotid arteries is performed. Images are reviewed in the transverse and longitudinal planes. COMPARISON: Comparison is made to CT cervical spine 07/10/2021 FINDINGS: The carotid arteries are patent bilaterally and demonstrate antegrade flow. There is mild atherosclerotic plaque on the right and mild atherosclerotic plaque on the left. Normal doppler arterial waveforms are seen throughout. Velocity measurements are listed below. Common carotid peak systolic velocity (cm/sec): RIGHT: 97 LEFT: 85 ICA peak systolic velocity (cm/sec): RIGHT: 61 LEFT: 51 ICA/CC peak systolic ratio: RIGHT: 0.63 LEFT: 0.60 Antegrade flow was shown in the vertebral arteries. The external carotid arteries are patent. IMPRESSION: 1. There is no sonographic evidence of hemodynamically significant stenosis in the right or left carotid arterial system. 2. Antegrade flow is shown in the vertebral arteries. Society of Radiologists in Ultrasound consensus guidelines: Normal: ICA PSV is <125 cm/sec and no plaque or intimal thickening is visible sonographically additional criteria include ICA/CCA PSV ratio <2.0 and ICA EDV <40 cm/sec <50% ICA stenosis: ICA PSV is <125 cm/sec and plaque or intimal thickening is visible sonographically additional criteria include ICA/CCA PSV ratio <2.0 and ICA EDV <40 cm/sec 50-69% ICA stenosis: ICA PSV is 125-230 cm/sec and plaque is visible sonographically additional criteria include ICA/CCA PSV ratio of 2.0-4.0 and ICA EDV of 40-100 cm/sec ?70% ICA stenosis but less than near occlusion: ICA PSV is >230 cm/sec and visible plaque and luminal narrowing are seen at smyth-scale and color Doppler ultrasound (the higher the Doppler parameters lie above the threshold of 230 cm/sec, the greater the likelihood of severe disease) additional criteria include ICA/CCA PSV ratio >4 and ICA EDV >100 cm/sec ACT 112: Negative or not required by law. Electronically signed by: William Martin M.D. 09/03/2023 8:36 PM Chest X-Ray 09/05/23 14:00 XR chest 1V portable CLINICAL HISTORY: s/p ppm ensure no ptx TECHNIQUE: Single frontal radiograph of the chest was obtained. Comparison: Comparison is made to chest radiograph 09/03/2023 FINDINGS: Interval placement of a pacemaker with the leads in satisfactory position. The cardiomediastinal silhouette is normal. The lungs are clear. No evidence of pleural effusion or pneumothorax. IMPRESSION: Interval placement of a pacemaker with the leads in satisfactory position. No evidence of pneumothorax. ACT 112: Negative or not required by law. Electronically signed by: William Martin M.D. 09/05/2023 2:44 PM Ordered Studies 09/03/23 11:56 CT head/brain wo con Stat 09/03/23 16:16 Carotid duplex [US carotid doppler BI] Routine 09/05/23 07:00 EP Lab Images for PACS ONCE Hospital Course (1) Sinus bradycardia: (2) Syncope: This is an 82-year-old male with PMH of TIA a few years ago, CKD 3, hyperlipidemia, mild asthma, BPH and other medical problems as below who presents after syncopal event witnessed at the [facility] earlier today. Sick sinus syndrome Sinus bradycardia Syncope secondary to above S/P pacemaker placement by on 09/05/2023 -CXR:Interval placement of a pacemaker with the leads in satisfactory position. No evidence of pneumothorax. -- Carotid Doppler:There is no sonographic evidence of hemodynamically significant stenosis in the right or left carotid arterial system. Antegrade flow is shown in the vertebral arteries. --ECHO: Normal left ventricle wall thickness. Left ventricle wall motion is normal. Left ventricle systolic function normal. EF 60 to 65%. Grade 1 diastolic dysfunction. Aortic valve sclerosis mild, without significant aortic valve stenosis -- CT Head:No acute intracranial findings. No calvarial fractures. Appreciate cardiology input Needs follow-up with cardiology on discharge (3) Brain TIA: Occurred a few years ago, no additional neuro events since then. Continue aspirin, statin No acute neurological symptoms (4) CKD (chronic kidney disease), stage III: Cr 1.36 on admission (baseline 1.2-1.4) Monitor with daily BMP Renal function at baseline (5) Asthma: Continue albuterol inhaler, O2 saturation 94% on room air No signs of acute exacerbation (6) BPH (benign prostatic hyperplasia): Continue finasteride, alfuzosin Bladder scan PRN DVT Px: SQ heparin Code status: FULL Disposition Home Total Time Total Time Spent Total Time Spent (In Minutes): 65 minutes Discharge Plan Discharge Items Patient Disposition: Home - Self-Care Reason For Visit: SYNCOPE Discharge Diagnosis: Sick sinus syndrome Sinus bradycardia Syncope Activity: As commented below Activity Comment: do not raise the left elbow over the left shoulder for 1 month Lifting: No more than 10 pounds Lifting Comment: do not lift more than 10 pounds with the left arm for 2 weeks Bathing: Keep incision dry Bathing Comment: keep dressing on & dry until wound check next week Exercise/Sports: Wait until after follow-up appointment Non-emergency contact: Primary Care Provider and [employer] Transporter Call non-emergency contact if: you have any medication questions, your symptoms worsen, your pain is concerning for you and you have a fever Follow-up/Referrals: [facility] [Other] (Date & Time 09/11/2023 11:30 AM Provider [facility] Department Cardiology, [facility] ) Laurent Azul DO [Cl[facility] Transporter] - (The Cardiology office will contact you for a follow up appointment.) Yolanda Grace MD [Primary Care Provider] - (Date & Time 09/12/2023 10:00 AM Provider Yolanda Grace MD Department General Internal Medicine [facility] ) Diet: Heart Healthy [facility] Attending Provider Instructions: -Follow-up with your primary care physician on 09/12/2023 10:00 AM -Follow-up with your cardiology Dr. Azul as recommended -Follow-up with [facility] for a pacemaker check on 09/11/2023 11:30 AM Seek immediate medical attention if your symptoms reoccur or worsen Please take all medications as instructed on discharge list below. Please call if you have any questions or problems. You can reach a [facility] hospitalist on duty at [facility] 24 hours a day by calling [phone] [employer] Teacher Provider Instructions: Device and wound check at [facility] next week ACTIVITY RECOMMENDATIONS: * Do not raise affected arm over head for 2 weeks. SPECIAL CARE INSTRUCTIONS: * If bleeding occurs, apply direct pressure to area for 5 minutes. * Call your doctor if you have severe pain, fever, drainage or bleeding at site. * Keep dressing on and dry for 48 hours then remove. * Keep any scheduled doctor's appointment. * Implant Card - hand held device with website information given. SKIN IRRITATION: * You may experience some redness and/or swelling in the area where radiation was administered. If any skin irritation occurs, please contact your family physician. FOLLOW UP VISIT: Keep any scheduled doctor appointments. Pending Studies at Discharge: No Stand-Alone Forms: My [facility], Smoking Cessation Medications and DC Order Prescriptions: Continued atorvastatin 40 mg tablet 40 mg PO DAILY aspirin 325 mg Tablet 325 mg PO QPM finasteride 5 mg tablet 5 mg PO DAILY alfuzosin 10 mg tablet extended release 24 hr 10 mg PO DAILY cholecalciferol (vitamin D3) [Vitamin D3] 25 mcg (1,000 unit) Tablet 25 mcg PO DAILY levocetirizine 5 mg tablet 5 mg PO HS albuterol sulfate [Ventolin HFA] 90 mcg/actuation Hfa Aerosol Inhaler 2 puff INHALATION QID PRN (Reason: Shortness Of Breath Or Wheezing) Discharge Orders: Discharge Order (Routine); Ordered 09/05/23 Ordered By: Austen Zamora Admission Data Admit Date/Time: 09/03/23 13:13 Attending Provider: Austen Zamora Admit Provider: Valerie Reardon Primary Care Provider: Yolanda Grace Other Providers: Vaelrie Reardon; Laurent Azul; George Storey
--- NOTE | 2023-09-06 07:32 | Electrocardiogram Report ---
Test Reason : Blood Pressure : / mmHG Vent. Rate : 047 BPM Atrial Rate : 047 BPM P-R Int : 216 ms QRS Dur : 096 ms QT Int : 500 ms P-R-T Axes : 063 -13 034 degrees QTc Int : 442 ms Sinus bradycardia with 1st degree A-V block Possible Left atrial enlargement Left ventricular hypertrophy Abnormal ECG When compared with ECG of 03-SEP-2023 11:38, (unconfirmed) No significant change was found Confirmed by Valeriano Jones ([id number]) on 09/06/2023 7:31:45 AM Referred By: REFERRED SELF Confirmed By:Valeriano Jones
--- NOTE | 2023-09-08 00:53 | Electrocardiogram Report ---
Test Reason : Blood Pressure : / mmHG Vent. Rate : 060 BPM Atrial Rate : 060 BPM P-R Int : 208 ms QRS Dur : 096 ms QT Int : 458 ms P-R-T Axes : 076 -08 053 degrees QTc Int : 458 ms Atrial-paced rhythm Abnormal ECG When compared with ECG of 04-SEP-2023 05:51, (unconfirmed) Electronic atrial pacemaker has replaced Sinus rhythm Confirmed by Valeriano Jones ([id number]) on 09/08/2023 12:53:43 AM Referred By: REFERRED SELF Confirmed By:Valeriano Jones
--- NOTE | 2023-09-12 09:29 | Operative Report ---
Post Operative Report DICTATED BY:Lenka Donnelly D.O. DATE OF PROCEDURE: 09/05/2023 PREOPERATIVE DIAGNOSES: Syncope, SSS, irreversible symptomatic sinus bradycardia POSTOPERATIVE DIAGNOSIS: Same PROCEDURE: A dual-chamber rate responsive permanent pacemaker and intracardiac electrogram His bundle recordings, along with a peripheral venogram under fluoroscopic guidance. SURGEON: Lenka Donnelly DO ASSISTANTS: None. ANESTHESIA: Monitored conscious sedation administered under my supervision by Cynthia Lagos. Start time 10:43, end time 12:02, a total of 4 mg of Versed and 100 mcg of fentanyl. INTRAVENOUS FLUIDS: 123 mL. CONTRAST: 15 mL. ANTIBIOTICS: 2 grams of Ancef. ADDITIONAL MEDICATIONS: none BLOOD LOSS: 70 mL. URINE OUTPUT: Not applicable. SPECIMENS: None. FINDINGS: See below. DRAINS: None. COMPLICATIONS: None. CONDITION: Stable. INDICATIONS: This is a 82-year-old gentleman who has a past medical history Asthma, CKD (chronic kidney disease), stage III, h/o TIA, HLD. He was admitted to [facility] due to recurrent syncopal episodes from bradycardia. Hhe was recommended a pacemaker prior to hospital discharge. CONSENT: Consent was obtained prior to the patient going into the electrophysiology lab. The patient was informed of the risks, benefits, and alternatives to the procedure. Risks include, but not limited to, sudden cardiac , cardiac arrhythmias, cerebrovascular accident, myocardial infarction, injury to his blood vessels, chamber of the heart and lung, bleeding and infection. The patient understood these risks and agreed to the procedure as planned. Informed consent was obtained. DESCRIPTION OF PROCEDURE: The patient was brought into electrophysiology lab in a fasting state. He was connected to continuous cardiac monitoring. A timeout was performed to ensure the patient's identity and procedure correctly. He was prepped and draped in the left infraclavicular space in normal surgical standard fashion. Monitored conscious sedation was given throughout the procedure for the patient's comfort level. [place] precautions were maintained throughout the procedure. Prophylactic antibiotics were given prior to incision. A 20 mL of 1% lidocaine and bupivacaine mixture were given in the left deltopectoral groove. An incision was made in the left deltopectoral groove. Blunt dissection was performed down to the pectoralis muscle. Then, using blunt dissection over the pectoralis muscle within the pectoral fascia, a pacemaker pocket was created. Then, a peripheral venogram was performed to identify the axillary vein. Venous axillary access was obtained through a needlestick without any problems. A guidewire was inserted without any resistance. A 6- [place] sheath was inserted over the guidewire without any resistance. Dilator was removed and a second guidewire was inserted through the sheath to allow for retained venous access. Then a 9 [place] sheath was inserted over one of the guidewires. The guidewire and dilator were removed. Then, the [employer] Accounting Representative 3D medium sheath was inserted through the 9-[place] sheath over a Glidewire into the right ventricle. The Glidewire and dilator were removed. Then, the left bundle lead was advanced through the sheath and intracardiac electrogram His bundle recordings were performed when the camera was in CESPEDES 10. Once I found where the His bundle is, see below for results, I then moved the camera to CESPEDES 30 and marked where the His bundle was on my fluoroscopy screen. I came down about 2 cm from this in a line that would extend out to the apex and then started coming on pacing. Once I found an area where I had a nice W formed pace complex in my lead V1, I then moved the camera to NIDA 30. Then the helix was extended into the septum. Then the helix locking tool was placed. Then the lead was screwed further into the septum while pacing by giving slow clockwise turns. The paced complex changed to a nice R' in V1 and the pacing stim to peak QRS in V6 was good. I then gave contrast through the sheath to see how far the lead was into the septum and then I slit the [employer] Representative 3D medium sheath under fluoroscopic guidance. Unfortunately the lead did pull back when I slit the sheath so I had to get a new [employer] security control room officer 3D medium sheath and reposition the left bundle lead; I had good signal and threshold and the sheath was slit under fluoroscopic guidance with the lead staying in position. I left the 9-[place] sheath in while I positioned the right atrial lead. A 6-[place] sheath was inserted over the retained guidewire, the guidewire and dilator removed. The right atrial lead was then advanced into right atrium and positioned into right atrial appendage under fluoroscopic guidance. There was adequate pacing and sensing thresholds and no diaphragmatic stimulation with high output pacing. The 6-[place] sheath was peeled away and the lead was fixated to the pectoralis muscle using 0 silk suture. The 9-[place] sheath around the left bundle lead was peeled away and the lead was fixated to pectoralis muscle using 0 silk suture. The pocket was flushed with copious amounts of vancomycin and saline wash and inspected for hemostasis. The leads were then attached to the pulse generator making sure the pins were in appropriate position, passed set screws, and set screws were all tightened. Pulse generator was then placed in the pocket, making sure the leads were lying flat beneath the device. The incision was closed in a 3-layer fashion using 2-0 Vicryl interrupted suture, followed by 3-0 Vicryl interrupted suture, followed by 4-0 Monocryl running stitch. Then a primaseal dressing was placed EQUIPMENT: 1. Pulse generator is a SoftRun MRI Model Number [id number] SN: [id number]. 2. Right atrial lead, cheerappM Tendril STS 2088TC SN: [id number] 3. Left bundle lead, Dorado SJM Tendril STS 2088TC SN: [id number] INTRAPROCEDURAL FINDINGS: 1. Intracardiac electrogram His bundle recordings, AH is 133 milliseconds, HV is 42 milliseconds. 2. Right atrial lead, P waves 2.3 millivolts, impedance 509 ohms, threshold 1.2 volts at 0.4 milliseconds. 3. Left bundle lead, R waves 5.7 millivolts, impedance 658 ohms, threshold 0.7 volts at 0.4 milliseconds. FINAL MEASUREMENTS THROUGH THE DEVICE: 1. Right atrial lead, P waves 3.4millivolts, impedance 590 ohms, threshold 0.75 volt at 0.4 milliseconds. 2. Left bundle lead, R waves 4.5 millivolts, impedance 610 ohms, threshold 0.5 volts at 0.4 milliseconds. FINAL PARAMETERS: DDDR 60/120, right atrial amplitude 3.5 volts, pulse width 0.4 milliseconds, sensitivity 0.5 millivolts. Left bundle lead amplitude 3.5 volts, pulse width 0.4 milliseconds, sensitivity 2 millivolts. IMPRESSION: Successful dual chamber rate responsive permanent pacemaker under fluoroscopic guidance along with peripheral venogram and intracardiac electrogram His bundle recordings, all under fluoroscopic guidance secondary to complete heart block PLAN: Monitor the patient post-procedure. A 12-lead ECG, chest x-ray. He is not to lift the left elbow or left shoulder for 1 month. He cannot lift more than 10 pounds with the left arm for 2 weeks. He is to keep the dressing on and dry until his wound check next week.
== END 2023-09-05 16:36 | disposition home or self-care (01) ==
LOC: EDINP 11:32 → ED 11:32 → SUATTDRO 13:13 → EDINP 13:58 → 4W 21:51